=== PATIENT | male | born 1960 | race Caucasian/White ===

== ENCOUNTER 2016-09-03 15:33 | Emergency (ER) | payer OTHER ==
[~2016-09-03 15:33] MED LIST: A-CILLIN500 MG PO; ACETAMINOPHEN-H1 TA2 PO; ADVAIR 250/501 EA INH; ALDACTONE25 MG PO; AMOXICILLIN500 MG PO; ANAPROX DS550 MG PO; ASPIRIN325 MG PO; ASPIRIN81 M1 PO; BUMETANIDE1 MG PO; BUMEX1 MG PO; CEFTIN500 MG PO; CEPHALEXIN500 M1 PO; CHANTIX1 TAB PO; CHANTRIX0.5 MG PO; CHLORDIAZEPOXID10 M1 PO; CHLORDIAZEPOXIDE 10 MG PO; CIPRO500 MG PO; COLACE100 MG PO; COREG3.125 MG PO; COREG6.25 MG PO; COUMADIN PO; CYCLOBENZAPRINE10 MG PO; Clopidogrel75 MG PO; DOXYCYCLINE100 M3 PO; DUONEB 3 MG/3 ML3 M1 INH; DUONEB 3 MG/3 ML3 M1 NEB; FLAGYL500 MG PO; FLUCONAZOLE100 MG PO; FOLIC ACID1 MG PO; FUROSEMIDE10 MG/ML PO; HYDR1%LOT T; HYDROCODONE BIT1 T11 PO; Hydrocortisone30 GM T; K-DUR 2020 MEQ PO; K-Dur 20MEQ20 MEQ PO; KEFLEX500 MG PO; LASIX40 MG PO; LISINOPRIL5 MG PO; Lovenox40 MG/0.4 SC; MACROBID100 M1 PO; METOPROLOL SR25 MG PO; NATURE'S BLEND F1 MG PO; NITROSTAT0.4 MG PO; NITROSTAT0.4 MG SL; NKHM; NYSTATIN CREAM15 GM T; PANTOPRAZOLE40 MG PO; PAROXETINE HCL20 MG PO; PERCOCET 325 MG1 TA2 PO; PERCOCET 325 MG1 TA7 PO; PLAVIX75 MG PO; PRAVACHOL80 MG PO; PREDNISONE10 MG PO; PREDNISONE20 MG PO; PREDNISONE50 MG PO; PRILOSEC20 MG PO; PROTONIX TR40 MG PO; PROTONIX40 MG PO; RESTORIL15 MG PO; SIMVASTATIN40 MG PO; SOTALOL80 MG PO; TAB-A-VITE1 TA1 PO; THERA1 TAB PO; TOPROL XL25 MG PO; VENTOLIN H0.09 MG/AC INH; VIBRAMYCIN100 MG PO; VICODIN 500 MG-1 TAB PO; VITAMIN B-11 TAB PO; ZITHROMAX500 MG PO; Zestril,Prinivil PO; Zestril,Prinivil5 MG PO
[2016-09-03] MEDS ORDERED: CYCLOBENZAPRINE10 MG PO (16:26)
[2016-09-03] MEDS ORDERED: MEDROL DOSEPAK4 MG PO (16:26)
[2016-09-03] MEDS ORDERED: NAPROSYN500 MG PO (16:26)
== END 2016-09-03 16:39 | disposition home or self-care (01) ==
LOC: ED 15:33
DX: S39.012A Strain of muscle, fascia and tendon of lower back, initial encounter (principal); F17.200 Nicotine dependence, unspecified, uncomplicated; Z79.82 Long term (current) use of aspirin; Z79.899 Other long term (current) drug therapy; Z88.1 Allergy status to other antibiotic agents; X50.0XXA Overexertion from strenuous movement or load, initial encounter; Y93.89 Activity, other specified; Y92.9 Unspecified place or not applicable; Y99.9 Unspecified external cause status

== ENCOUNTER 2016-11-27 14:19 | Emergency (ER) | payer OTHER ==
[~2016-11-27] VITALS: Wt 72.6 kg
[~2016-11-27 14:19] MED LIST changes: +MEDROL DOSEPAK4 MG PO; +NAPROSYN500 MG PO
[2016-11-27] MEDS ORDERED: NAPROSYN500 MG PO (15:50)
[2016-11-27] MEDS ORDERED: MEDROL DOSEPAK4 MG PO (15:50)
[2016-11-27] MEDS ORDERED: CYCLOBENZAPRINE10 MG PO (15:50)
== END 2016-11-27 15:54 | disposition home or self-care (01) ==
LOC: ED 14:19
DX: M54.30 Sciatica, unspecified side (principal); M79.652 Pain in left thigh; F17.200 Nicotine dependence, unspecified, uncomplicated; Z88.1 Allergy status to other antibiotic agents; Z79.82 Long term (current) use of aspirin; Z79.899 Other long term (current) drug therapy

== ENCOUNTER 2017-02-04 02:10 | Inpatient (IN) | payer OTHER ==
[~2017-02-04] VITALS: Ht 175.2 cm; Wt 73.1 kg
[2017-02-04] VITALS (8 sets, daily range): BP systolic 93–142; BP diastolic 66–90
[2017-02-04 02:37] LABS: BASO % 0.6 % (0.0-1.0); EOS # 0.3 10*3/uL (0.0-0.4); EOS % 3.8 % (1.0-4.0); HEMATOCRIT 46.1 % (42.0-52.0); HEMOGLOBIN 15.3 g/dl (14.0-18.0); LYMPH # 1.6 10*3/uL (1.3-4.4); LYMPH % 23.8 % (27.0-41.0); MEAN CELL VOLUME 86.8 fl (80.0-94.0); MEAN CORPUSCULAR HGB 28.8 pg (27.0-31.0); MEAN CORPUSCULAR HGB CONC 33.2 g/dl (33.0-37.0); MEAN PLATELET VOLUME 9.5 fl (9.6-12.3); MONO # 0.9 10*3/uL (0.1-1.0); MONO % 13.3 % (3.0-9.0); NEUT % 58.2 % (47.0-73.0); PLATELET COUNT AUTOMATED 147 10*3/uL (130-400); RED BLOOD COUNT 5.31 10*6/uL (4.50-5.90); RED CELL DISTRI WIDTH 16.8 % (0-14.5); WHITE BLOOD COUNT 6.8 10*3/uL (4.8-10.8)
[2017-02-04 02:47] LABS: ACT PARTIAL THROMBO TIME 25.8 SECONDS (20.8-31.5); INTERNATIONAL NORM RATIO 1.1 (2.0-3.5)
[2017-02-04 02:55] LABS: ALBUMIN 2.8 gm/dl (3.1-4.5); ALKALINE PHOSPHATASE 163 U/L (45-117); BUN 11 mg/dl (7-24); CHLORIDE 107 mmol/L (98-107); CREATININE 0.72 mg/dL (0.70-1.30); MAGNESIUM 1.8 mg/dL (1.5-2.1); SGOT/AST 19 IU/L (3-35); SGPT/ALT 14 U/L (12-78); SODIUM 138 mmol/L (136-145); TOTAL PROTEIN 5.7 gm/dL (6.4-8.2); TROPONIN I 0.032 ng/ml (<0.045)
[2017-02-04 03:41] LABS: ABG BASE EXCESS 0.2 mmol/L (-2.0-2.0); ABG HCO3 24.1 mmol/l (22-26); ABG O2 SATURATION 98.9 % (95-97); ARTERIAL BLOOD GAS PCO2 37.9 mmHg (35-45); ARTERIAL BLOOD GAS PH 7.417 (7.35-7.45)
--- NOTE | 2017-02-04 04:36 | NUR ---
PATIENT MEDICATED WITH PRN MORPHINE FOR C/O LEFT FOOT PAIN THAT HE RATES A 9
--- NOTE | 2017-02-04 04:40 | NUR ---
PATIENT ARRIVED TO FLOOR FROM ER, ORIENTED TO FLOOR AND CALL LIGHT REVIEWED MEDICATINS WITH PATIENT
--- NOTE | 2017-02-04 04:50 | NUR ---
PATIENT IS UNSURE OF HOME MEDICATIONS. WILL NEED TO CALL [facility] WHEN THEY OPEN IN THE AM.
--- NOTE | 2017-02-04 05:45 | NUR ---
PATIENT STATES EARLIER MORPHINE WAS INEFFECTIVE. MEDICATED WITH PRN NORCO ORDERED FOR LEFT FOOT PAIN STILL RATED A 9.
[2017-02-04 05:52] LABS: BASO % 0.6 % (0.0-1.0); EOS # 0.1 10*3/uL (0.0-0.4); EOS % 1.4 % (1.0-4.0); HEMATOCRIT 48.4 % (42.0-52.0); LYMPH # 0.8 10*3/uL (1.3-4.4); MEAN CELL VOLUME 87.5 fl (80.0-94.0); MEAN CORPUSCULAR HGB 28.9 pg (27.0-31.0); MEAN CORPUSCULAR HGB CONC 33.1 g/dl (33.0-37.0); MEAN PLATELET VOLUME 10.3 fl (9.6-12.3); MONO # 0.4 10*3/uL (0.1-1.0); MONO % 5.9 % (3.0-9.0); NEUT # 4.9 10*3/uL (2.3-7.9); NEUT % 78.6 % (47.0-73.0); PLATELET COUNT AUTOMATED 114 10*3/uL (130-400); RED BLOOD COUNT 5.53 10*6/uL (4.50-5.90); RED CELL DISTRI WIDTH 17.3 % (0-14.5); WHITE BLOOD COUNT 6.2 10*3/uL (4.8-10.8)
[2017-02-04 05:56] LABS: BUN 11 mg/dl (7-24); CHLORIDE 104 mmol/L (98-107); CHOLESTEROL 146 mg/dL (<200); CREATININE 0.83 mg/dL (0.70-1.30); MAGNESIUM 1.7 mg/dL (1.5-2.1); PHOSPHOROUS 3.8 mg/dL (2.5-4.9); POTASSIUM 4.1 mmol/L (3.5-5.1); SODIUM 139 mmol/L (136-145); TRIGLYCERIDES 66 mg/dl (<150); VLDL CHOLESTEROL 13 mg/dL (6-40)
[2017-02-04 06:00] LABS: HDL CHOLESTEROL 62 mg/dl (40-60); LDL CHOLESTEROL 71 mg/dL (9-159); TROPONIN I 0.027 ng/ml (<0.045)
[2017-02-04 06:18] LABS: ACT PARTIAL THROMBO TIME 25.3 SECONDS (20.8-31.5); INTERNATIONAL NORM RATIO 1.1 (2.0-3.5)
[2017-02-04 08:03] LABS: VITAMIN D, 25-HYDROXY 35.6 ng/mL (30-100)
--- NOTE | 2017-02-04 17:34 | NUR ---
PT MEDICATED AT 173 WITH PRN MORPHINE FOR C/O LEFT FOOT PAIN. 4TH TOE ON LEFT FOOT BRUISED. PT STATES HE STUBBED IT ON A CHAIR AT HOME WHEN HE GOT UP IN THE MIDDLE OF THE NIGHT. RATES PAIN 01/19. WILL CONTINUE TO MONITOR.
--- NOTE | 2017-02-04 18:48 | NUR ---
PRN MORPHINE EFFECTIVE PER PT.
--- NOTE | 2017-02-04 21:39 | NUR ---
MEDICATED WITH PRN MORPHINE ORDERED FOR C/O LEFT FOOT PAIN RATED A 9
--- NOTE | 2017-02-04 22:45 | NUR ---
PATIENT STATES EARLIER MORPHINE WAS INEFFECTIVE IN REDUCING LEFT FOOT PAIN.
[2017-02-05] VITALS: BP 92/58
--- NOTE | 2017-02-05 01:24 | NUR ---
PATIENT MEDICATED WITH PRN MORPHINE ORDERED FOR C/O LEFT FOOT PAIN RATED A 7
--- NOTE | 2017-02-05 02:30 | NUR ---
PATIENT STATES THAT EARLIER MORPHINE WAS "SOMEWHAT EFFECTIVE" IN REDUCING HIS FOOT PAIN.
--- NOTE | 2017-02-05 05:44 | NUR ---
PATIENT MEDICATED WITH PRN MORPHINE ORDERED FOR C/O LEFT FOOT PAIN AT AN 8
--- NOTE | 2017-02-05 06:42 | NUR ---
PATIENT STATES EARLIER MORPHINE DID NOT HELP HIS PAIN. STILL RATES HIS PAIN AT AN 8
[2017-02-05 08:00] VITALS: BP 91/61
--- NOTE | 2017-02-05 09:00 | NUR ---
Pinking Machine Operator in to talk to patient. Patient states lives at home with . There are few steps in the home. Physician: doesn't know [facility] Home health services: none Patient's level of ADLs: INDEPENDENT Patient has working utilities: all working DME: none Follow-up physician's appointment after d/c: will be made by hospitalist nurse director upon discharge Does patient want to access PORTAL?: no Discharge plan discussed with patient, patient lives at home, states he is independent in adls and ambulation, denies any home needs at this time. LAKSHMI ALFONSO
--- NOTE | 2017-02-05 09:44 | NUR ---
MEDICATED WITH PRN IV MORPHINE FOR LEFT FOOT PAIN.
--- NOTE | 2017-02-05 10:40 | NUR ---
PRN IV MORPHINE EFFECTIVE FOR LEFT FOOT PAIN, PER PATIENT.
[2017-02-05 12:00] VITALS: BP 122/82
--- NOTE | 2017-02-05 12:22 | NUR ---
MEDICATED WITH PRN PO PERCOCET FOR LEFT FOOT PAIN.
--- NOTE | 2017-02-05 13:44 | NUR ---
PRN PO PERCOCET WAS EFFECTIVE FOR A SHORT TIME, PER PATIENT; MEDICATED AT THIS TIME WITH PRN IV MORPHINE FOR SEVERE LEFT FOOT PAIN.
--- NOTE | 2017-02-05 14:39 | NUR ---
PATIENT HAVING PERIODS OF MARK CARDIA 40'S -50'S LOW 41, IRREGULAR IN SINUS ARRHYTHMIA WITH BUNDLE BRANCH BLOCK. HE IS DROWSY, AROUSES EASILY BUT FALLS BACK ASLEEP PROMPTLY. HE DENIES ANY CHEST PAIN, STATES HE IS OK. MORPHINE GIVEN EARLIER IS EFFECTIVE FOR PAIN. WILL CONTINUE TO MONITOR.
[2017-02-05] MEDS ORDERED: Percocet 325 MG1 TAB PO (14:41)
[2017-02-05] MEDS ORDERED: LEVOFLOXAC500 MG/100 IV (14:41)
[2017-02-05] MEDS ORDERED: SOLU-MEDRO40 MG/1 ML IV (14:41)
[2017-02-05 16:00] VITALS: BP 123/98
--- NOTE | 2017-02-05 17:46 | NUR ---
MEDICATED WITH PRN IV MORPHINE FOR SEVERE LEFT FOOT PAIN. [facility] HERE TO TRANSPORT THE PATIENT. HELD IV BUMEX PER PATIENT REQUEST FOR AMBULANCE RIDE TO PREVENT DISCOMFORT FROM URINARY FREQUENCY.
--- NOTE | 2017-02-05 18:00 | NUR ---
PATIENT TRANSFERRED TO [facility] AT THIS TIME, REPORT CALLED TO RECEIVING RN.
== END 2017-02-05 17:46 | disposition short-term general hospital (02) | DRG 299 ==
LOC: ED 02:10 → 5E 03:21 → EDHOLD 03:21 → 5E 03:41
PROVIDERS: Emergency Medicine Emergency Medical Services; Family Medicine; ADMIT Internal Medicine
DX: I73.9 Peripheral vascular disease, unspecified (principal); I50.23 Acute on chronic systolic (congestive) heart failure; E44.0 Moderate protein-calorie malnutrition; J44.1 Chronic obstructive pulmonary disease with (acute) exacerbation; M79.672 Pain in left foot; R73.03 Prediabetes; R00.1 Bradycardia, unspecified; K21.9 Gastro-esophageal reflux disease without esophagitis; I11.0 Hypertensive heart disease with heart failure; Z71.6 Tobacco abuse counseling; F17.210 Nicotine dependence, cigarettes, uncomplicated; Z80.1 Family history of malignant neoplasm of trachea, bronchus and lung; Z83.3 Family history of diabetes mellitus; Z88.8 Allergy status to other drugs, medicaments and biological substances; Z79.82 Long term (current) use of aspirin; Z79.899 Other long term (current) drug therapy; Z68.23 Body mass index [BMI] 23.0-23.9, adult

== ENCOUNTER 2017-03-01 16:27 | Emergency (ER) | payer OTHER ==
[~2017-03-01] VITALS: Ht 175.2 cm; Wt 72.6 kg
[~2017-03-01 16:27] MED LIST changes: +LEVOFLOXAC500 MG/100 IV; +Percocet 325 MG1 TAB PO; +SOLU-MEDRO40 MG/1 ML IV
[2017-03-01 17:22] LABS: BASO % 0.5 % (0.0-1.0); EOS # 0.3 10*3/uL (0.0-0.4); EOS % 4.2 % (1.0-4.0); HEMATOCRIT 50.6 % (42.0-52.0); HEMOGLOBIN 16.5 g/dl (14.0-18.0); LYMPH # 1.4 10*3/uL (1.3-4.4); LYMPH % 23.8 % (27.0-41.0); MEAN CELL VOLUME 88.6 fl (80.0-94.0); MEAN CORPUSCULAR HGB 28.9 pg (27.0-31.0); MEAN CORPUSCULAR HGB CONC 32.6 g/dl (33.0-37.0); MEAN PLATELET VOLUME 10.5 fl (9.6-12.3); MONO # 0.7 10*3/uL (0.1-1.0); MONO % 10.8 % (3.0-9.0); NEUT # 3.6 10*3/uL (2.3-7.9); NEUT % 60.4 % (47.0-73.0); PLATELET COUNT AUTOMATED 142 10*3/uL (130-400); RED BLOOD COUNT 5.71 10*6/uL (4.50-5.90); RED CELL DISTRI WIDTH 17.6 % (0-14.5)
[2017-03-01 17:31] LABS: ACT PARTIAL THROMBO TIME 26.5 SECONDS (20.8-31.5); INTERNATIONAL NORM RATIO 1.1 (2.0-3.5)
[2017-03-01 17:37] LABS: ALBUMIN 3.7 gm/dl (3.1-4.5); ALKALINE PHOSPHATASE 238 U/L (45-117); BUN 11 mg/dl (7-24); CHLORIDE 105 mmol/L (98-107); CREATININE 0.77 mg/dL (0.70-1.30); MAGNESIUM 1.8 mg/dL (1.5-2.1); POTASSIUM 4.8 mmol/L (3.5-5.1); SGOT/AST 17 IU/L (3-35); SGPT/ALT 23 U/L (12-78); SODIUM 139 mmol/L (136-145); TOTAL PROTEIN 7.4 gm/dL (6.4-8.2)
== END 2017-03-01 20:49 | disposition short-term general hospital (02) ==
LOC: ED 16:27
PROVIDERS: Emergency Medicine
DX: E11.621 Type 2 diabetes mellitus with foot ulcer (principal); I10 Essential (primary) hypertension; K21.9 Gastro-esophageal reflux disease without esophagitis; E11.51 Type 2 diabetes mellitus with diabetic peripheral angiopathy without gangrene; F17.210 Nicotine dependence, cigarettes, uncomplicated; L97.529 Non-pressure chronic ulcer of other part of left foot with unspecified severity; I99.8 Other disorder of circulatory system; I50.9 Heart failure, unspecified; J44.9 Chronic obstructive pulmonary disease, unspecified

== ENCOUNTER 2017-05-09 13:44 | Emergency (ER) | payer OTHER ==
[~2017-05-09] VITALS: Ht 175.2 cm; Wt 73.0 kg
[2017-05-09 14:31] LABS: BASO % 0.4 % (0.0-1.0); EOS # 0.1 10*3/uL (0.0-0.4); EOS % 1.1 % (1.0-4.0); HEMATOCRIT 48.6 % (42.0-52.0); HEMOGLOBIN 16.3 g/dl (14.0-18.0); LYMPH # 1.2 10*3/uL (1.3-4.4); LYMPH % 22.3 % (27.0-41.0); MEAN CELL VOLUME 88.8 fl (80.0-94.0); MEAN CORPUSCULAR HGB 29.8 pg (27.0-31.0); MEAN CORPUSCULAR HGB CONC 33.5 g/dl (33.0-37.0); MEAN PLATELET VOLUME 9.9 fl (9.6-12.3); MONO # 0.6 10*3/uL (0.1-1.0); MONO % 11.7 % (3.0-9.0); NEUT # 3.5 10*3/uL (2.3-7.9); NEUT % 64.1 % (47.0-73.0); PLATELET COUNT AUTOMATED 156 10*3/uL (130-400); RED BLOOD COUNT 5.47 10*6/uL (4.50-5.90); RED CELL DISTRI WIDTH 15.6 % (0-14.5); WHITE BLOOD COUNT 5.5 10*3/uL (4.8-10.8)
[2017-05-09 14:48] LABS: ALBUMIN 2.9 gm/dl (3.1-4.5); ALKALINE PHOSPHATASE 247 U/L (45-117); BUN 12 mg/dl (7-24); CHLORIDE 103 mmol/L (98-107); CREATININE 0.77 mg/dL (0.70-1.30); POTASSIUM 4.5 mmol/L (3.5-5.1); SGOT/AST 41 IU/L (3-35); SGPT/ALT 29 U/L (12-78); SODIUM 134 mmol/L (136-145); TOTAL PROTEIN 6.4 gm/dL (6.4-8.2)
[2017-05-09 14:50] LABS: TROPONIN I 0.022 ng/ml (<0.045)
[2017-05-09 14:53] LABS: INTERNATIONAL NORM RATIO 1.1 (2.0-3.5)
[2017-05-09 15:05] LABS: ACT PARTIAL THROMBO TIME 101.7 SECONDS (20.8-31.5)
== END 2017-05-09 14:51 | disposition short-term general hospital (02) ==
LOC: ED 13:44
PROVIDERS: Nurse Practitioner Family
DX: I21.19 ST elevation (STEMI) myocardial infarction involving other coronary artery of inferior wall (principal); F17.210 Nicotine dependence, cigarettes, uncomplicated; Z88.8 Allergy status to other drugs, medicaments and biological substances; Z79.899 Other long term (current) drug therapy; Z79.82 Long term (current) use of aspirin

== ENCOUNTER 2017-06-15 06:54 | Emergency (ER) | payer OTHER ==
[~2017-06-15] VITALS: Ht 175.2 cm; Wt 68.0 kg
[2017-06-15 07:33] LABS: BASO % 0.3 % (0.0-1.0); EOS # 0.1 10*3/uL (0.0-0.4); EOS % 0.9 % (1.0-4.0); HEMATOCRIT 46.2 % (42.0-52.0); HEMOGLOBIN 15.8 g/dl (14.0-18.0); LYMPH # 1.3 10*3/uL (1.3-4.4); LYMPH % 20.3 % (27.0-41.0); MEAN CELL VOLUME 87.2 fl (80.0-94.0); MEAN CORPUSCULAR HGB 29.8 pg (27.0-31.0); MEAN CORPUSCULAR HGB CONC 34.2 g/dl (33.0-37.0); MEAN PLATELET VOLUME 9.8 fl (9.6-12.3); MONO # 0.7 10*3/uL (0.1-1.0); MONO % 10.4 % (3.0-9.0); NEUT # 4.3 10*3/uL (2.3-7.9); NEUT % 67.8 % (47.0-73.0); PLATELET COUNT AUTOMATED 112 10*3/uL (130-400); WHITE BLOOD COUNT 6.3 10*3/uL (4.8-10.8)
[2017-06-15 07:50] LABS: ALBUMIN 2.8 gm/dl (3.1-4.5); ALKALINE PHOSPHATASE 166 U/L (45-117); BUN 8 mg/dl (7-24); CHLORIDE 103 mmol/L (98-107); CPK 63 U/L (39-308); CREATININE 0.71 mg/dL (0.70-1.30); POTASSIUM 3.7 mmol/L (3.5-5.1); SGOT/AST 27 IU/L (3-35); SGPT/ALT 21 U/L (12-78); SODIUM 137 mmol/L (136-145); TOTAL PROTEIN 5.8 gm/dL (6.4-8.2)
[2017-06-15 07:53] LABS: TROPONIN I 0.203 ng/ml (<0.045)
[2017-06-15 07:54] LABS: ACT PARTIAL THROMBO TIME 25.6 SECONDS (20.8-31.5)
== END 2017-06-15 09:15 | disposition short-term general hospital (02) ==
LOC: ED 06:54
PROVIDERS: Student in an Organized Health Care Education/Training Program
DX: I70.8 Atherosclerosis of other arteries (principal); I11.0 Hypertensive heart disease with heart failure; I50.9 Heart failure, unspecified; K21.9 Gastro-esophageal reflux disease without esophagitis; I25.2 Old myocardial infarction; Z79.82 Long term (current) use of aspirin; Z79.899 Other long term (current) drug therapy

== ENCOUNTER → 2017-07-31 | Outpatient (CLI) | payer OTHER | END | disposition home or self-care (01) | LOC: CARD 12:53 | DX: I08.1 Rheumatic disorders of both mitral and tricuspid valves (principal) ==

== ENCOUNTER 2017-08-16 16:07 | Inpatient (IN) | payer OTHER ==
[~2017-08-16] VITALS: Ht 175.2 cm; Wt 71.2 kg
--- NOTE | ~2017-08-16 | CON ---
[place], [place] REPORT OF CONSULTATION NAME: RYAN JOHN [facility] #: [id number] UNIT #: [id number] ROOM: 425 DOCTOR: CY YARBROUGH MD BIRTHDATE: [birth year] DOS: 08/17/2017 REASON FOR CONSULTATION: CHF and chest pain. CLINICAL HISTORY: The patient is a 57-year-old gentleman with history of cardiomyopathy, CAD, valvular heart disease, hypertension, tobacco smoking, who presents to Emergency Room for "chest pain". This pain started while he was sweeping the floor. This was in midsternal area, which has radiated to his shoulder. He did have some shortness of breath with the pain, but no associated nausea or diaphoresis. In the Emergency Room, he was treated appropriately with aspirin and metoprolol. His EKG was unchanged compared to previous EKG. He was admitted to the hospital and Cardiology was consulted for further recommendation. In the Emergency Room the supplement helped only partially for his pain. Other than this episode, he denies any further chest pains. He is fairly active. He had history of coronary artery disease and previous interventions. He did continue to smoke. He is also complaining of some mild exertional dyspnea, but no PND, no orthopnea. No nausea, vomiting, diarrhea, no fever and chills. No neurologic symptoms suggestive of tingling, numbness or weakness. No blurred vision. No cough or hemoptysis. No hematuria or dysuria. No musculoskeletal symptoms. At the time of examination, the patient is sleeping and denied any chest pains or shortness of breath. REVIEW OF SYSTEMS: Review of the 8 systems are negative except as mentioned above. PAST MEDICAL HISTORY: 1. Coronary artery disease, status post EXPERIMENTAL PHYSICIST. 2. History of cardiomyopathy. 3. Valvular heart disease with mitral and tricuspid regurgitation. 4. Hypertension. 5. History of right nephrectomy. 6. Acid reflux. 7. Pulmonary nodule. 8. Peripheral vascular disease. 9. Chronic obstructive pulmonary disease. PAST SURGICAL HISTORY: History of right nephrectomy and cardiac stents. SOCIAL HISTORY: The patient drinks alcohol socially and still smoking, but does not use illicit drugs. FAMILY HISTORY: Father at the age of 49 from lung cancer. Mother has diabetes. ALLERGIES: Noted. HOME MEDICATIONS: Include aspirin, Coreg, Lasix, lisinopril, and Pravachol. REVIEW OF THE DIAGNOSTIC TESTS: His EKG shows normal sinus with left bundle bunch block, nonspecific ST changes. The patient is with some ST elevation, [place], [place] REPORT OF CONSULTATION NAME: RYAN JOHN UNIT #: [id number] ROOM: 425 DOCTOR: ZENON GOMEZ,CHEMAYoseph BIRTHDATE: [birth year] thus far it is secondary to his underlying left bundle branch block. His EKG from June 2017 reviewed. Rhythm strip showed sinus rhythm, left bundle branch block and sinus bradycardia. His labs including cardiac enzymes reviewed. The cardiac troponins are negative. Potassium 3.7, mag is 1.8, BUN 17 and creatinine 1.13, hemoglobin 7.8, platelets 105,000. Echo from 07/31/2017 showed EF 20% with moderate mitral regurgitation, moderate tricuspid regurgitation. Echo from September 2013 showed EF of 25% to 30%. IMPRESSION: 1. Chest pain, appears to be atypical chest pain, myocardial infarction ruled out. 2. Acute on chronic systolic heart failure with BNP 2296. 3. Chronic obstructive pulmonary disease exacerbation and some respiratory failure. 4. Sinus bradycardia, asymptomatic. 5. Coronary artery disease, status post multiple interventions. 6. Valvular heart disease with moderate mitral regurgitation and moderate tricuspid regurgitation. 7. Tobacco smoking. 8. Hypertension. RECOMMENDATIONS: 1. Continue diuretics for his CHF, monitor his blood pressures and renal function as well as daily in's and out's. 2. Adjust some medication for his bradycardia and hypertension. 3. I will review his previous cardiac history and his cath report before making any further recommendations. 4. Risk factor modification to quit drinking and smoking was discussed. 5. Currently, there is no family at bedside at the time of my examination. 6. Continue to monitor his electrolytes, especially his potassium and magnesium levels due to his LV dysfunction. ADDENDUM PHYSICAL EXAMINATION: VITAL SIGNS: Blood pressure 95/69, pulse 58, respiratory rate 20, weight 66.8 kilos with a BMI 21.8. GENERAL: Alert, comfortable, in no acute distress. HEENT: Pupils are round and equal, no jaundice. Tongue was moist and pharynx clear. NECK: Supple. The patient had elevated neck veins. No carotid bruit. CHEST: Symmetrical, nontender. LUNGS: A few scattered rhonchi, diminished at bases. HEART: Regular rhythm, no S3, grade 2/6 systolic murmur at the right sternal border as well as apical area. No S3, no palpable thrills. ABDOMEN: Benign, nontender. Bowel sounds normal. EXTREMITIES: Showed 1+ edema. Distal pulses palpable. SKIN: Warm and dry. No cyanosis, no clubbing. NEUROLOGIC: The patient is alert and oriented. No focal neurologic deficit. RECTAL: Deferred. [place], [place] REPORT OF CONSULTATION NAME: RYAN JOHN UNIT #: [id number] ROOM: [facility] DOCTOR: CY YARBROUGH MD BIRTHDATE: [birth year] GENITOURINARY: Deferred. PSYCHIATRIC: The patient alert with good mood and affect. CY YARBROUGH MD CM:CONSTR:REPORT OF CONSULTATION 1821 08/18/17 0356 interface
--- NOTE | ~2017-08-16 | PR ---
[place], [place] PROGRESS NOTE NAME: RYAN JOHN [facility] #: [id number] UNIT #: [id number] ROOM: 425 DOCTOR: OMA FRIED MD BIRTHDATE: [birth year] DOS: 08/18/2017 SUBJECTIVE: The patient was seen at his bedside today, 08/18/2017 for followup of his cardiomyopathy, heart failure and atypical chest pain. He is a 57-year-old man with a history of alcohol abuse who was felt to have a mostly nonischemic cardiomyopathy despite a history of coronary artery disease. It is felt that his left ventricular dysfunction is out of proportion to the amount of coronary disease that he has. His most recent catheterization was at the [facility] on 05/09/2017. The left main and LAD showed only minor disease. The circumflex showed minor disease with moderate disease of a first diagonal. The right coronary artery was occluded with bridging collaterals as well as left to right collaterals. There were no good targets for revascularization. The ejection fraction was 10% and again out of proportion to the amount of coronary artery disease seen. The physicians at the [facility] recommended continued medical therapy. They did express concern that the patient had a long history of alcohol abuse as well as poor medical compliance and therefore, they did not encourage an aggressive approach to his left ventricular dysfunction. Specifically, they did not recommend a LifeVest or ICD. The patient presented to [facility] on this occasion with atypical chest pain and dyspnea. Serial cardiac troponin levels have been unremarkable. A chest x-ray did not show any evidence for heart failure. PHYSICAL EXAMINATION: VITAL SIGNS: Today, his pulse is 68 and regular with frequent premature beats. Blood pressure is 115/80. He is afebrile. NECK: Supple. He has no jugular distention or hepatojugular reflux. Carotids are full without bruits. LUNGS: Respirations are unlabored. His chest has decreased breath sounds at the bases, but no wheezes or rales. HEART: Has a regular rhythm with frequent premature beats. He has a fourth heart sound and a soft third heart sound. I did not hear any significant murmurs. ABDOMEN: Soft. EXTREMITIES: Showed no edema. Peripheral pulses were absent in the feet. LABORATORY DATA: Hemoglobin today is 14.5 with a white count of 4600 and a platelet count of 134,000. Sodium is 138, potassium 4.0, chloride 104, CO2 27, BUN 19, creatinine 0.82. Recent drug screen was only positive for marijuana. IMPRESSION: 1. Coronary artery disease. Catheterization in late 04/2017 showed essentially single vessel disease with a total chronic occlusion of the right coronary artery which was filled by collaterals. 2. Cardiomyopathy, which appears to be dilated and nonischemic. The left ventricular dysfunction is far out of proportion to the amount of coronary artery disease present. 3. History of alcohol abuse. 4. History of medication noncompliance. [place], [place] PROGRESS NOTE NAME: RYAN JOHN UNIT #: [id number] ROOM: 425 DOCTOR: FARIHA GOMEZ,OMA BIRTHDATE: [birth year] PLAN: We will add a nitrate to his regimen and continue a single antiplatelet therapy with aspirin. He will also continue lisinopril and a beta aba. We will add spironolactone to his regimen for heart failure and continue to follow him clinically. At this point, no advanced or aggressive measures are being considered for his heart failure or coronary artery disease. I thank the hospitalist group for asking our advice regarding the patient's care. OMA FRIED MD CM:PNTRANS [id number] OMA FRIED MD 08/18/17 1344 interface
--- NOTE | ~2017-08-16 | PR ---
[place], [place] PROGRESS NOTE NAME: RYAN JOHN [facility] #: [id number] UNIT #: [id number] ROOM: 425 DOCTOR: OMA FRIED MD BIRTHDATE: [birth year] DOS: 08/19/2017 SUBJECTIVE: The patient was seen today at his bedside on 08/19/2017 for followup of his dilated, nonischemic cardiomyopathy, heart failure, and coronary artery disease. He is a 57-year-old man with a history of alcohol abuse and coronary artery disease, but a mostly nonischemic cardiomyopathy. His most recent catheterization at the [facility] on 05/09/2017 showed the left main and LAD had only minor disease. The circumflex had minor disease with moderate disease of a first obtuse marginal. The right coronary artery was occluded with bridging collaterals as well as bhot-hs-vilof collaterals. There were no good targets for revascularization. The ejection fraction was 10% and was felt to be out of proportion to the amount of coronary artery disease present. It was felt that he should be treated medically. The physicians at the [facility] expressed a concern that the patient had a long history of alcohol abuse and poor compliance. Therefore, they did not encourage an aggressive approach to his left ventricular dysfunction. The patient presented to [facility] on this occasion with atypical chest pain and dyspnea. He did not rule in for myocardial infarction, and a chest x-ray did not show any evidence for heart failure. Today, he does feel considerably better. He states that his breathing has improved. He is not coughing. He is anxious for discharge. PHYSICAL EXAMINATION: GENERAL: Today reveals an elderly appearing white male. VITAL SIGNS: Pulse is 55 with an occasional premature beat. Blood pressure is 108/76. He is afebrile. He weighs 71.2 kg and has a body mass index of 23.2. HEENT: Normocephalic and atraumatic. Extraocular muscles are intact. Sclerae are clear. Pupils equal, round, and react to light. The oral mucosa is moist. Tongue is midline. NECK: Supple. He has no jugular distention. Carotids are full. LUNGS: Respirations are unlabored. His chest has decreased breath sounds at the bases, but otherwise clear. HEART: Has a regular rhythm. Heart tones are distant. ABDOMEN: Soft and normally active. EXTREMITIES: Showed no edema. IMPRESSION: 1. Coronary artery disease. Catheterization in late 04/2017 showed essentially single-vessel disease with total occlusion of the right coronary artery, which filled by collaterals. 2. Cardiomyopathy, which appears to be dilated and nonischemic. Left ventricular dysfunction is far out of proportion to the amount of coronary artery disease present. 3. History of alcohol abuse. 4. History of medication noncompliance. PLAN: The patient has tolerated the addition of nitrates and spironolactone to [place], [place] PROGRESS NOTE NAME: RYAN JOHN UNIT #: [id number] ROOM: 425 DOCTOR: OMA FRIED MD BIRTHDATE: [birth year] his regimen. He will continue on those along with aspirin, lisinopril, and a beta aba. I think he could be discharged from a cardiac perspective. We will see him in the office in several weeks. I thank the hospitalist physicians for asking our advice regarding his care. OMA FRIED MD CM:PNTRANS 1333 [id number] OMA FRIED MD 08/19/17 1357 interface
[2017-08-16 16:16] VITALS: BP 127/94
[2017-08-16 16:30] LABS: BASO # 0.1 10*3/uL (0.0-0.1); BASO % 0.7 % (0.0-1.0); EOS # 0.1 10*3/uL (0.0-0.4); HEMATOCRIT 54.1 % (42.0-52.0); HEMOGLOBIN 17.8 g/dl (14.0-18.0); LYMPH # 1.7 10*3/uL (1.3-4.4); LYMPH % 24.7 % (27.0-41.0); MEAN CORPUSCULAR HGB 29.3 pg (27.0-31.0); MEAN CORPUSCULAR HGB CONC 32.9 g/dl (33.0-37.0); MEAN PLATELET VOLUME 11.4 fl (9.6-12.3); MONO # 1.2 10*3/uL (0.1-1.0); MONO % 16.9 % (3.0-9.0); NEUT # 3.9 10*3/uL (2.3-7.9); NEUT % 56.4 % (47.0-73.0); PLATELET COUNT AUTOMATED 105 10*3/uL (130-400); RED BLOOD COUNT 6.08 10*6/uL (4.50-5.90); RED CELL DISTRI WIDTH 17.3 % (0-14.5); WHITE BLOOD COUNT 6.9 10*3/uL (4.8-10.8)
[2017-08-16 16:45] VITALS: BP 116/92
[2017-08-16 16:47] LABS: ALBUMIN 3.3 gm/dl (3.1-4.5); ALKALINE PHOSPHATASE 212 U/L (45-117); BUN 17 mg/dl (7-24); CHLORIDE 99 mmol/L (98-107); CREATININE 1.13 mg/dL (0.70-1.30); POTASSIUM 3.7 mmol/L (3.5-5.1); SGOT/AST 24 IU/L (3-35); SGPT/ALT 26 U/L (12-78); SODIUM 134 mmol/L (136-145); TOTAL PROTEIN 6.6 gm/dL (6.4-8.2); TROPONIN I 0.016 ng/ml (<0.045)
[2017-08-16 16:51] LABS: BILIRUBIN NEGATIVE (NEGATIVE); BLOOD NEGATIVE (NEGATIVE); CLARITY SL CLOUDY (CLEAR); COLOR YELLOW (YELLOW); GLUCOSE NEGATIVE (NEGATIVE); KETONE NEGATIVE (NEGATIVE); LEUKO ESTERASE NEGATIVE (NEGATIVE); NITRITE NEGATIVE (NEGATIVE); SPECIFIC GRAVITY 1.015 (1.005-1.030); UROBILINOGEN 0.2 E.U./dl (0.2-1.0)
[2017-08-16 16:58] LABS: HYALINE CAST 31-40
[2017-08-16 17:00] LABS: BACTERIA 2+; URINE AMPHETAMINES < 1000 (1000ng/ml); URINE BARBITURATES < 200 (200ng/ml); URINE BENZODIAZEPINES < 200 (200ng/ml); URINE CANNABINOIDS (THC) > 50 (50ng/ml); URINE COCAINE < 300 (300ng/ml); URINE METHADONE < 300 (300ng/ml); URINE OPIATES < 300 (300ng/ml)
[2017-08-16 17:01] LABS: EPITHELIAL CELLS 0-2
[2017-08-16 17:02] LABS: URINE PHENCYCLIDINE < 25 (25ng/ml)
[2017-08-16 17:11] LABS: ACT PARTIAL THROMBO TIME 25.7 SECONDS (20.8-31.5); INTERNATIONAL NORM RATIO 1.1 (2.0-3.5)
[2017-08-16 17:22] VITALS: BP 112/88
[2017-08-16 18:00] VITALS: BP 111/86
[2017-08-16 20:00] VITALS: BP 85/63
[2017-08-17] VITALS: BP 95/69
[2017-08-17 06:01] LABS: BASO % 0.9 % (0.0-1.0); EOS # 0.2 10*3/uL (0.0-0.4); EOS % 3.7 % (1.0-4.0); LYMPH # 1.4 10*3/uL (1.3-4.4); LYMPH % 29.6 % (27.0-41.0); MEAN CELL VOLUME 88.2 fl (80.0-94.0); MEAN CORPUSCULAR HGB 28.9 pg (27.0-31.0); MEAN CORPUSCULAR HGB CONC 32.7 g/dl (33.0-37.0); MEAN PLATELET VOLUME 9.7 fl (9.6-12.3); MONO # 0.9 10*3/uL (0.1-1.0); MONO % 19.8 % (3.0-9.0); NEUT # 2.1 10*3/uL (2.3-7.9); NEUT % 45.8 % (47.0-73.0); PLATELET COUNT AUTOMATED 134 10*3/uL (130-400); RED BLOOD COUNT 5.02 10*6/uL (4.50-5.90); WHITE BLOOD COUNT 4.6 10*3/uL (4.8-10.8)
[2017-08-17 06:13] LABS: BUN 19 mg/dl (7-24); CHLORIDE 104 mmol/L (98-107); CHOLESTEROL 137 mg/dL (<200); CREATININE 0.82 mg/dL (0.70-1.30); HDL CHOLESTEROL 63 mg/dl (40-60); LDL CHOLESTEROL 59 mg/dL (9-159); SODIUM 138 mmol/L (136-145); TRIGLYCERIDES 77 mg/dl (<150); VLDL CHOLESTEROL 15 mg/dL (6-40)
[2017-08-17 06:16] LABS: HEMOGLOBIN 14.5 g/dl (14.0-18.0)
[2017-08-17 06:17] LABS: HEMATOCRIT 44.3 % (42.0-52.0)
[2017-08-17 07:13] LABS: VITAMIN D, 25-HYDROXY 15.6 ng/mL (30-100)
[2017-08-17 08:00] VITALS: BP 104/68
[2017-08-17 12:00] VITALS: BP 126/79
[2017-08-17 16:00] VITALS: BP 95/74
[2017-08-17 20:00] VITALS: BP 101/75
[2017-08-18] VITALS: BP 105/75
[2017-08-18 08:00] VITALS: BP 115/80
[2017-08-18 12:00] VITALS: BP 119/90
[2017-08-18 16:00] VITALS: BP 106/68
[2017-08-18 20:00] VITALS: BP 95/64
[2017-08-19] VITALS: BP 100/70
[2017-08-19 06:58] LABS: BUN 20 mg/dl (7-24); CHLORIDE 105 mmol/L (98-107); CREATININE 0.61 mg/dL (0.70-1.30); SODIUM 138 mmol/L (136-145)
[2017-08-19 08:00] VITALS: BP 108/76
[2017-08-19 12:00] VITALS: BP 104/64
[2017-08-19] MEDS ORDERED: ALDACTONE25 MG PO (14:34)
[2017-08-19] MEDS ORDERED: CALCIUM 600 +1 EAC5 PO (14:34)
[2017-08-19] MEDS ORDERED: IMDUR SA30 MG PO (14:34)
== END 2017-08-19 15:15 | disposition home or self-care (01) | DRG 189 ==
LOC: ED 16:07 → EDHOLD 17:01 → 4E 17:01
PROVIDERS: Internal Medicine Cardiovascular Disease; Nurse Practitioner Family; Student in an Organized Health Care Education/Training Program
DX: J96.01 Acute respiratory failure with hypoxia (principal); J18.9 Pneumonia, unspecified organism; D69.6 Thrombocytopenia, unspecified; I11.0 Hypertensive heart disease with heart failure; E44.1 Mild protein-calorie malnutrition; E11.65 Type 2 diabetes mellitus with hyperglycemia; I50.22 Chronic systolic (congestive) heart failure; I42.9 Cardiomyopathy, unspecified; E87.1 Hypo-osmolality and hyponatremia; R65.10 Systemic inflammatory response syndrome (SIRS) of non-infectious origin without acute organ dysfunction; K21.9 Gastro-esophageal reflux disease without esophagitis; M94.0 Chondrocostal junction syndrome [Tietze]; I25.10 Atherosclerotic heart disease of native coronary artery without angina pectoris; R00.0 Tachycardia, unspecified; R82.71 Bacteriuria; D72.810 Lymphocytopenia; J44.9 Chronic obstructive pulmonary disease, unspecified; R42 Dizziness and giddiness; R80.9 Proteinuria, unspecified; R91.1 Solitary pulmonary nodule; F17.210 Nicotine dependence, cigarettes, uncomplicated; F17.200 Nicotine dependence, unspecified, uncomplicated; F41.9 Anxiety disorder, unspecified; Z91.14 Patient's other noncompliance with medication regimen; Z82.3 Family history of stroke; Z98.61 Coronary angioplasty status; Z71.6 Tobacco abuse counseling; Z72.89 Other problems related to lifestyle; Z80.1 Family history of malignant neoplasm of trachea, bronchus and lung; Z83.3 Family history of diabetes mellitus; Z79.82 Long term (current) use of aspirin; Z68.21 Body mass index [BMI] 21.0-21.9, adult

== ENCOUNTER 2017-09-26 00:50 | Emergency (ER) | payer OTHER ==
[~2017-09-26] VITALS: Ht 175.2 cm; Wt 74.4 kg
[~2017-09-26 00:50] MED LIST changes: +CALCIUM 600 +1 EAC5 PO; +IMDUR SA30 MG PO
[2017-09-26 01:21] LABS: BASO # 0.1 10*3/uL (0.0-0.1); BASO % 0.8 % (0.0-1.0); EOS # 0.1 10*3/uL (0.0-0.4); EOS % 1.5 % (1.0-4.0); HEMATOCRIT 48.9 % (42.0-52.0); HEMOGLOBIN 16.2 g/dl (14.0-18.0); MEAN CELL VOLUME 87.3 fl (80.0-94.0); MEAN CORPUSCULAR HGB 28.9 pg (27.0-31.0); MEAN CORPUSCULAR HGB CONC 33.1 g/dl (33.0-37.0); MONO # 0.9 10*3/uL (0.1-1.0); MONO % 14.8 % (3.0-9.0); NEUT % 65.6 % (47.0-73.0); PLATELET COUNT AUTOMATED 179 10*3/uL (130-400); RED CELL DISTRI WIDTH 15.5 % (0-14.5); WHITE BLOOD COUNT 6.1 10*3/uL (4.8-10.8)
[2017-09-26 01:33] LABS: ACT PARTIAL THROMBO TIME 24.3 SECONDS (20.8-31.5)
[2017-09-26 01:39] LABS: ALBUMIN 2.8 gm/dl (3.1-4.5); ALKALINE PHOSPHATASE 188 U/L (45-117); BUN 14 mg/dl (7-24); CHLORIDE 106 mmol/L (98-107); POTASSIUM 3.7 mmol/L (3.5-5.1); SGOT/AST 19 IU/L (3-35); SGPT/ALT 19 U/L (12-78); SODIUM 139 mmol/L (136-145); TOTAL PROTEIN 5.8 gm/dL (6.4-8.2)
[2017-09-26 03:21] LABS: CKMB 1.5 ng/ml (0.5-3.6); CPK 71 U/L (39-308); TROPONIN I < 0.015 ng/ml (<0.045)
== END 2017-09-26 06:46 | disposition short-term general hospital (02) ==
LOC: ED 00:50
PROVIDERS: Emergency Medicine
DX: I77.89 Other specified disorders of arteries and arterioles (principal); I26.99 Other pulmonary embolism without acute cor pulmonale; F17.200 Nicotine dependence, unspecified, uncomplicated; I25.10 Atherosclerotic heart disease of native coronary artery without angina pectoris; I11.0 Hypertensive heart disease with heart failure; I50.9 Heart failure, unspecified; I25.2 Old myocardial infarction; J44.9 Chronic obstructive pulmonary disease, unspecified; K21.9 Gastro-esophageal reflux disease without esophagitis; E11.9 Type 2 diabetes mellitus without complications; Z95.5 Presence of coronary angioplasty implant and graft; Z79.82 Long term (current) use of aspirin; Z79.899 Other long term (current) drug therapy; Z88.8 Allergy status to other drugs, medicaments and biological substances

== ENCOUNTER 2017-11-03 22:18 | Emergency (ER) | payer OTHER ==
[~2017-11-03] VITALS: Ht 175.2 cm; Wt 74.4 kg
[2017-11-03 23:06] LABS: ACT PARTIAL THROMBO TIME 23.1 SECONDS (20.8-31.5); BASO # 0.1 10*3/uL (0.0-0.1); BASO % 0.7 % (0.0-1.0); EOS # 0.1 10*3/uL (0.0-0.4); EOS % 1.5 % (1.0-4.0); HEMATOCRIT 51.1 % (42.0-52.0); HEMOGLOBIN 17.3 g/dl (14.0-18.0); INTERNATIONAL NORM RATIO 1.1 (2.0-3.5); LYMPH # 1.3 10*3/uL (1.3-4.4); LYMPH % 18.6 % (27.0-41.0); MEAN CELL VOLUME 87.4 fl (80.0-94.0); MEAN CORPUSCULAR HGB 29.6 pg (27.0-31.0); MEAN CORPUSCULAR HGB CONC 33.9 g/dl (33.0-37.0); MEAN PLATELET VOLUME 11.3 fl (9.6-12.3); MONO # 1.1 10*3/uL (0.1-1.0); MONO % 15.6 % (3.0-9.0); NEUT # 4.5 10*3/uL (2.3-7.9); NEUT % 62.8 % (47.0-73.0); PLATELET COUNT AUTOMATED 191 10*3/uL (130-400); RED BLOOD COUNT 5.85 10*6/uL (4.50-5.90); WHITE BLOOD COUNT 7.2 10*3/uL (4.8-10.8)
[2017-11-03] MEDS ORDERED: ELIQUIS5 M1 PO (23:07)
[2017-11-04 00:36] LABS: TROPONIN I < 0.015 ng/ml (<0.045)
== END 2017-11-04 00:01 | disposition short-term general hospital (02) ==
LOC: ED 22:18
PROVIDERS: Student in an Organized Health Care Education/Training Program
DX: I70.8 Atherosclerosis of other arteries (principal); F17.200 Nicotine dependence, unspecified, uncomplicated; I25.10 Atherosclerotic heart disease of native coronary artery without angina pectoris; J44.9 Chronic obstructive pulmonary disease, unspecified; K21.9 Gastro-esophageal reflux disease without esophagitis; I10 Essential (primary) hypertension; E11.65 Type 2 diabetes mellitus with hyperglycemia; Z95.5 Presence of coronary angioplasty implant and graft; Z88.8 Allergy status to other drugs, medicaments and biological substances; Z79.82 Long term (current) use of aspirin; Z79.899 Other long term (current) drug therapy; Z86.711 Personal history of pulmonary embolism

== ENCOUNTER → 2017-12-12 | Outpatient (CLI) | payer OTHER ==
[~2017-12-12] MED LIST changes: +ELIQUIS5 M1 PO
[2017-12-14 19:07] LABS: ANTICARDIOLIPIN AB, IGG, QN <9 GPL U/mL (0-14); ANTICARDIOLIPIN AB, IGM, QN <9 MPL U/mL (0-12); CARDIOLIPIN AB IGA 161836 <9 APL U/mL (0-11)
== END | disposition home or self-care (01) ==
LOC: RESCLI 02:27
PROVIDERS: Internal Medicine
DX: I25.10 Atherosclerotic heart disease of native coronary artery without angina pectoris (principal); I11.0 Hypertensive heart disease with heart failure; I50.22 Chronic systolic (congestive) heart failure; K21.9 Gastro-esophageal reflux disease without esophagitis; J44.9 Chronic obstructive pulmonary disease, unspecified; I34.0 Nonrheumatic mitral (valve) insufficiency; I07.1 Rheumatic tricuspid insufficiency; I25.2 Old myocardial infarction; I70.222 Atherosclerosis of native arteries of extremities with rest pain, left leg; I74.5 Embolism and thrombosis of iliac artery; I70.209 Unspecified atherosclerosis of native arteries of extremities, unspecified extremity; I70.1 Atherosclerosis of renal artery; R91.1 Solitary pulmonary nodule; Z79.82 Long term (current) use of aspirin; Z79.899 Other long term (current) drug therapy; Z87.891 Personal history of nicotine dependence; Z88.8 Allergy status to other drugs, medicaments and biological substances; Z95.828 Presence of other vascular implants and grafts; Z98.62 Peripheral vascular angioplasty status

== ENCOUNTER 2018-01-27 21:46 | Emergency (ER) | payer OTHER ==
[~2018-01-27] VITALS: Ht 175.2 cm; Wt 69.9 kg
--- NOTE | ~2018-01-27 | EKG ---
[place], [place] ELECTROCARDIOGRAM REPORT NAME: RYAN JOHN UNIT #: [id number] ROOM: DOCTOR: EPIPHANY DRAFT REPORT BIRTHDATE: [birth year] [facility] Test Date: 2018-01-27 Test Time: 23:27:38 Pat Name: RYAN JOHN Department: ER Room: 2 Gender: M Plastic Dolls Mold Filler: : 1960 Requested By: DIDI ROCKWELL Order Number: [id number] Reading MD: Claudio Carpenter MD Measurements Intervals [place] Rate: 82 P: 75 MT: 176 QRS: -65 QRSD: 138 T: 115 QT: 486 QTc: 568 Interpretive Statements Sinus rhythm Multiple premature complexes, vent \T\ supraven Probable left atrial enlargement Left bundle branch block Baseline wander in lead(s) V2 Compared to ECG 12/26/2017 15:39:07 Sinus bradycardia no longer present Electronically Signed On 01-30-2018 11:13:27 PDT by Claudio Carpenter MD CM:EKGRPT:ELECTROCARDIOGRAM REPORT [id number] DIDI ROCKWELL MD EPIPHANY DRAFT REPORT DIDI ROCKWELL MD
[2018-01-27 22:41] LABS: ACT PARTIAL THROMBO TIME 23.1 SECONDS (20.8-31.5)
[2018-01-27 22:47] LABS: ALBUMIN 2.9 gm/dl (3.1-4.5); ALKALINE PHOSPHATASE 186 U/L (45-117); BUN 9 mg/dl (7-24); CHLORIDE 105 mmol/L (98-107); CREATININE 0.83 mg/dL (0.70-1.30); POTASSIUM 3.5 mmol/L (3.5-5.1); SGOT/AST 23 IU/L (3-35); SGPT/ALT 21 U/L (12-78); SODIUM 139 mmol/L (136-145); TOTAL PROTEIN 6.5 gm/dL (6.4-8.2)
[2018-01-27 23:17] LABS: BASO % 0.7 % (0.0-1.0); EOS # 0.3 10*3/uL (0.0-0.4); EOS % 4.7 % (1.0-4.0); HEMATOCRIT 43.3 % (42.0-52.0); HEMOGLOBIN 14.3 g/dl (14.0-18.0); LYMPH % 16.6 % (27.0-41.0); MEAN CELL VOLUME 85.7 fl (80.0-94.0); MEAN CORPUSCULAR HGB 28.3 pg (27.0-31.0); MEAN PLATELET VOLUME 8.9 fl (9.6-12.3); MONO # 0.9 10*3/uL (0.1-1.0); MONO % 15.5 % (3.0-9.0); NEUT # 3.7 10*3/uL (2.3-7.9); NEUT % 62.2 % (47.0-73.0); PLATELET COUNT AUTOMATED 144 10*3/uL (130-400); RED BLOOD COUNT 5.05 10*6/uL (4.50-5.90); RED CELL DISTRI WIDTH 14.8 % (0-14.5); WHITE BLOOD COUNT 5.9 10*3/uL (4.8-10.8)
[2018-02-11] MEDS ORDERED: LIPITOR80 MG PO (17:20)
[2018-02-11] MEDS ORDERED: PLAVIX75 M1 PO (17:21)
[2018-02-11] MEDS ORDERED: NATURE'S BLEND F1 MG PO (17:21)
[2018-02-11] MEDS ORDERED: THIAMINE HCL100 MG PO (17:22)
[2018-02-11] MEDS ORDERED: LISINOPRIL5 MG PO (17:22)
[2018-03-14] MEDS ORDERED: OMNICEF300 MG PO (12:17)
[2018-03-14] MEDS ORDERED: FLAGYL500 MG PO (12:18)
[2018-03-14] MEDS ORDERED: MICRO-GUARD85 GM TP (12:19)
[2018-03-14] MEDS ORDERED: NEURONTIN300 MG PO (12:21)
[2018-03-14] MEDS ORDERED: ACETAMINOPHEN325 M2 PO (12:22)
[2018-03-14] MEDS ORDERED: VENTOLIN 02.5 MG/3 M INH (12:23)
[2018-03-14] MEDS ORDERED: PROTONIX40 M1 IV (12:24)
[2018-03-14] MEDS ORDERED: PANTOPRAZOLE SO40 MG PO (12:25)
[2018-03-14] MEDS ORDERED: ULTRAM50 MG PO (12:26)
[2018-03-14] MEDS ORDERED: ELIQUIS5 M1 PO (12:31)
[2018-03-14] MEDS ORDERED: PLAVIX75 M1 PO (12:31)
[2018-03-22] MEDS ORDERED: Lanoxin PO (10:36)
[2018-03-22] MEDS ORDERED: HYDROCODONE-AC1 EAC1 PO (10:36)
[2018-03-22] MEDS ORDERED: ALDACTONE25 MG PO (10:36)
[2018-03-22] MEDS ORDERED: PREDNISONE10 MG PO (10:36)
[2018-03-22] MEDS ORDERED: NYSTOP60 GM T (10:36)
[2018-04-13] MEDS ORDERED: DIGOX125 MCG PO (02:51)
== END 2018-01-28 00:06 | disposition short-term general hospital (02) ==
LOC: ED 21:46
PROVIDERS: Student in an Organized Health Care Education/Training Program
DX: I77.89 Other specified disorders of arteries and arterioles (principal); I25.10 Atherosclerotic heart disease of native coronary artery without angina pectoris; J44.9 Chronic obstructive pulmonary disease, unspecified; K21.9 Gastro-esophageal reflux disease without esophagitis; I11.0 Hypertensive heart disease with heart failure; I50.20 Unspecified systolic (congestive) heart failure; F17.200 Nicotine dependence, unspecified, uncomplicated; Z88.8 Allergy status to other drugs, medicaments and biological substances; Z79.899 Other long term (current) drug therapy; Z79.82 Long term (current) use of aspirin

== ENCOUNTER 2018-05-01 09:41 | Emergency (ER) | payer OTHER ==
[~2018-05-01] VITALS: Ht 175.2 cm; Wt 69.9 kg
--- NOTE | ~2018-05-01 | EKG ---
[place], [place] ELECTROCARDIOGRAM REPORT NAME: RYAN JOHN UNIT #: [id number] ROOM: DOCTOR: EPIPHANY DRAFT REPORT BIRTHDATE: [birth year] [facility] Test Date: 2018-05-01 Test Time: 10:19:22 Pat Name: RYAN JOHN Department: Room: Gender: Dump Grounds Checker: Jodie Trujillo : 1960 Requested By: TARAH SIMMS Order Number: [id number] Reading MD: Rocky Kaba MD Measurements Intervals [place] Rate: 60 P: 85 MN: 204 QRS: -67 QRSD: 141 T: 110 QT: 506 QTc: 506 Interpretive Statements Sinus rhythm Atrial premature complex Borderline prolonged MN interval Probable left atrial enlargement Left bundle branch block Baseline wander in lead(s) V3 Compared to ECG 04/13/2018 05:21:53 No significant changes Electronically Signed On 05-05-2018 13:06:20 PST by Rocky Kaba MD CM:EKGRPT:ELECTROCARDIOGRAM REPORT [id number] TARAH SANTOS DRAFT REPORT TARAH SIMMS DO
[~2018-05-01 09:41] MED LIST changes: +ACETAMINOPHEN325 M2 PO; +DIGOX125 MCG PO; +HYDROCODONE-AC1 EAC1 PO; +LIPITOR80 MG PO; +Lanoxin PO; +MICRO-GUARD85 GM TP; +NEURONTIN300 MG PO; +NYSTOP60 GM T; +OMNICEF300 MG PO; +PANTOPRAZOLE SO40 MG PO; +PLAVIX75 M1 PO; +PROTONIX40 M1 IV; +THIAMINE HCL100 MG PO; +ULTRAM50 MG PO; +VENTOLIN 02.5 MG/3 M INH
[2018-05-01 10:13] LABS: BASO # 0.1 10*3/uL (0.0-0.1); BASO % 0.8 % (0.0-1.0); EOS # 0.1 10*3/uL (0.0-0.4); EOS % 1.9 % (1.0-4.0); HEMATOCRIT 43.3 % (42.0-52.0); HEMOGLOBIN 13.8 g/dl (14.0-18.0); LYMPH # 1.5 10*3/uL (1.3-4.4); LYMPH % 24.7 % (27.0-41.0); MEAN CELL VOLUME 81.2 fl (80.0-94.0); MEAN CORPUSCULAR HGB 25.9 pg (27.0-31.0); MEAN CORPUSCULAR HGB CONC 31.9 g/dl (33.0-37.0); MEAN PLATELET VOLUME 11.1 fl (9.6-12.3); MONO # 0.9 10*3/uL (0.1-1.0); MONO % 14.4 % (3.0-9.0); NEUT # 3.6 10*3/uL (2.3-7.9); NEUT % 57.9 % (47.0-73.0); PLATELET COUNT AUTOMATED 186 10*3/uL (130-400); RED BLOOD COUNT 5.33 10*6/uL (4.50-5.90); RED CELL DISTRI WIDTH 16.9 % (0-14.5); WHITE BLOOD COUNT 6.2 10*3/uL (4.8-10.8)
[2018-05-01 10:32] LABS: ALBUMIN 3.7 gm/dl (3.1-4.5); ALKALINE PHOSPHATASE 171 U/L (45-117); BUN 11 mg/dl (7-24); CHLORIDE 106 mmol/L (98-107); CREATININE 0.98 mg/dL (0.70-1.30); POTASSIUM 4.6 mmol/L (3.5-5.1); SGOT/AST 20 IU/L (3-35); SGPT/ALT 23 U/L (12-78); SODIUM 137 mmol/L (136-145); TOTAL PROTEIN 7.3 gm/dL (6.4-8.2)
[2018-05-01 10:33] LABS: TROPONIN I 0.018 ng/ml (<0.045)
[2018-05-01 10:49] LABS: ACT PARTIAL THROMBO TIME 23.5 SECONDS (20.8-31.5)
== END 2018-05-01 16:00 | disposition short-term general hospital (02) ==
LOC: ED 09:41
PROVIDERS: Internal Medicine
DX: I77.1 Stricture of artery (principal); R23.0 Cyanosis; I11.0 Hypertensive heart disease with heart failure; I50.20 Unspecified systolic (congestive) heart failure; I48.91 Unspecified atrial fibrillation; I25.10 Atherosclerotic heart disease of native coronary artery without angina pectoris; J44.9 Chronic obstructive pulmonary disease, unspecified; K21.9 Gastro-esophageal reflux disease without esophagitis; E78.5 Hyperlipidemia, unspecified; I73.9 Peripheral vascular disease, unspecified; F17.200 Nicotine dependence, unspecified, uncomplicated; Z88.8 Allergy status to other drugs, medicaments and biological substances; Z88.1 Allergy status to other antibiotic agents; Z79.899 Other long term (current) drug therapy; Z89.021 Acquired absence of right finger(s); Z86.73 Personal history of transient ischemic attack (TIA), and cerebral infarction without residual deficits

== ENCOUNTER 2018-07-01 22:16 | Emergency (ER) | payer OTHER ==
[~2018-07-01] VITALS: Ht 172.7 cm; Wt 63.5 kg
--- NOTE | ~2018-07-01 | EKG ---
[place], [place] ELECTROCARDIOGRAM REPORT NAME: RYAN JOHN UNIT #: [id number] ROOM: DOCTOR: SOHAN DRAFT REPORT BIRTHDATE: [birth year] [facility] Test Date: 2018-07-01 Test Time: 22:31:57 Pat Name: RYAN JOHN Department: Room: Gender: Office Helper Clerical: : 1960 Requested By: TITO FLANAGAN Order Number: [id number] Reading MD: Measurements Intervals [place] Rate: 72 P: 42 VT: 242 QRS: -67 QRSD: 151 T: 125 QT: 523 QTc: 573 Interpretive Statements Sinus rhythm Prolonged VT interval Left bundle branch block Compared to ECG 05/01/2018 10:19:22 Atrial premature complex(es) no longer present CM:EKGRPT:ELECTROCARDIOGRAM REPORT 30 40 TITO SANTOS DRAFT REPORT TITO FLANAGAN DO
[2018-07-01 22:54] LABS: BASO # 0.1 10*3/uL (0.0-0.1); BASO % 0.6 % (0.0-1.0); EOS # 0.3 10*3/uL (0.0-0.4); EOS % 3.4 % (1.0-4.0); HEMATOCRIT 28.6 % (42.0-52.0); HEMOGLOBIN 8.8 g/dl (14.0-18.0); LYMPH # 1.1 10*3/uL (1.3-4.4); MEAN CELL VOLUME 74.3 fl (80.0-94.0); MEAN CORPUSCULAR HGB 22.9 pg (27.0-31.0); MEAN CORPUSCULAR HGB CONC 30.8 g/dl (33.0-37.0); MEAN PLATELET VOLUME 9.5 fl (9.6-12.3); MONO # 1.1 10*3/uL (0.1-1.0); MONO % 10.9 % (3.0-9.0); NEUT # 7.3 10*3/uL (2.3-7.9); NEUT % 73.6 % (47.0-73.0); PLATELET COUNT AUTOMATED 140 10*3/uL (130-400); RED BLOOD COUNT 3.85 10*6/uL (4.50-5.90); RED CELL DISTRI WIDTH 17.5 % (0-14.5)
[2018-07-01 23:13] LABS: ACT PARTIAL THROMBO TIME 28.7 SECONDS (20.8-31.5); INTERNATIONAL NORM RATIO 1.1 (2.0-3.5)
[2018-07-01 23:20] LABS: ALBUMIN 2.9 gm/dl (3.1-4.5); ALKALINE PHOSPHATASE 359 U/L (45-117); BUN 12 mg/dl (7-24); CHLORIDE 93 mmol/L (98-107); CREATININE 0.85 mg/dL (0.70-1.30); POTASSIUM 4.1 mmol/L (3.5-5.1); SGOT/AST 16 IU/L (3-35); SGPT/ALT 22 U/L (12-78); SODIUM 131 mmol/L (136-145); TOTAL PROTEIN 6.8 gm/dL (6.4-8.2); TROPONIN I 0.017 ng/ml (<0.045)
== END 2018-07-02 03:47 | disposition short-term general hospital (02) ==
LOC: ED 22:16
PROVIDERS: Student in an Organized Health Care Education/Training Program
DX: L03.116 Cellulitis of left lower limb (principal); I95.9 Hypotension, unspecified; I48.91 Unspecified atrial fibrillation; I25.10 Atherosclerotic heart disease of native coronary artery without angina pectoris; I11.0 Hypertensive heart disease with heart failure; I50.20 Unspecified systolic (congestive) heart failure; J44.9 Chronic obstructive pulmonary disease, unspecified; K21.9 Gastro-esophageal reflux disease without esophagitis; E78.5 Hyperlipidemia, unspecified; I73.9 Peripheral vascular disease, unspecified; F17.200 Nicotine dependence, unspecified, uncomplicated; Z88.8 Allergy status to other drugs, medicaments and biological substances; Z88.1 Allergy status to other antibiotic agents; Z79.899 Other long term (current) drug therapy; Z86.718 Personal history of other venous thrombosis and embolism; Z89.021 Acquired absence of right finger(s); Z89.512 Acquired absence of left leg below knee

== ENCOUNTER → 2018-10-29 | Outpatient (CLI) | payer OTHER | END | disposition home or self-care (01) | LOC: RESCLI 00:22 | DX: I11.0 Hypertensive heart disease with heart failure (principal); I50.22 Chronic systolic (congestive) heart failure; K21.9 Gastro-esophageal reflux disease without esophagitis; I25.10 Atherosclerotic heart disease of native coronary artery without angina pectoris; I70.222 Atherosclerosis of native arteries of extremities with rest pain, left leg; F33.1 Major depressive disorder, recurrent, moderate; E78.2 Mixed hyperlipidemia; E55.9 Vitamin D deficiency, unspecified; E53.8 Deficiency of other specified B group vitamins; D64.9 Anemia, unspecified; G62.9 Polyneuropathy, unspecified; G54.6 Phantom limb syndrome with pain; G89.29 Other chronic pain; Z79.899 Other long term (current) drug therapy ==

== ENCOUNTER 2018-11-29 12:39 | Emergency (ER) | payer OTHER ==
[~2018-11-29] VITALS: Ht 182.8 cm; Wt 79.4 kg
[2018-11-29 13:18] LABS: BASO % 0.3 % (0.0-1.0); EOS # 0.1 10*3/uL (0.0-0.4); EOS % 0.5 % (1.0-4.0); HEMATOCRIT 45.6 % (42.0-52.0); HEMOGLOBIN 14.8 g/dl (14.0-18.0); LYMPH # 0.9 10*3/uL (1.3-4.4); LYMPH % 7.3 % (27.0-41.0); MEAN CELL VOLUME 82.8 fl (80.0-94.0); MEAN CORPUSCULAR HGB 26.9 pg (27.0-31.0); MEAN CORPUSCULAR HGB CONC 32.5 g/dl (33.0-37.0); MEAN PLATELET VOLUME 9.5 fl (9.6-12.3); MONO # 1.5 10*3/uL (0.1-1.0); MONO % 12.5 % (3.0-9.0); NEUT # 9.5 10*3/uL (2.3-7.9); NEUT % 79.1 % (47.0-73.0); PLATELET COUNT AUTOMATED 144 10*3/uL (130-400); RED BLOOD COUNT 5.51 10*6/uL (4.50-5.90); RED CELL DISTRI WIDTH 19.4 % (0-14.5)
[2018-11-29 13:33] LABS: ALBUMIN 3.1 gm/dl (3.1-4.5); ALKALINE PHOSPHATASE 164 U/L (45-117); BUN 12 mg/dl (7-24); CHLORIDE 101 mmol/L (98-107); CREATININE 0.63 mg/dL (0.70-1.30); POTASSIUM 3.7 mmol/L (3.5-5.1); SGOT/AST 7 IU/L (3-35); SGPT/ALT 12 U/L (12-78); SODIUM 133 mmol/L (136-145); TOTAL PROTEIN 7.1 gm/dL (6.4-8.2)
== END 2018-11-29 19:39 | disposition short-term general hospital (02) ==
LOC: ED 12:39
PROVIDERS: Nurse Practitioner Family
DX: L03.116 Cellulitis of left lower limb (principal); L02.416 Cutaneous abscess of left lower limb; F17.200 Nicotine dependence, unspecified, uncomplicated; Z89.612 Acquired absence of left leg above knee; Z88.8 Allergy status to other drugs, medicaments and biological substances; Z88.1 Allergy status to other antibiotic agents; Z79.899 Other long term (current) drug therapy

== ENCOUNTER 2019-01-24 11:14 | Emergency (ER) | payer OTHER ==
[~2019-01-24] VITALS: Ht 175.2 cm; Wt 66.2 kg
[2019-01-24 11:50] LABS: HEMATOCRIT 44.7 % (42.0-52.0); HEMOGLOBIN 14.6 g/dl (14.0-18.0); MEAN CELL VOLUME 81.9 fl (80.0-94.0); MEAN CORPUSCULAR HGB 26.7 pg (27.0-31.0); MEAN CORPUSCULAR HGB CONC 32.7 g/dl (33.0-37.0); MEAN PLATELET VOLUME 9.4 fl (9.6-12.3); PLATELET COUNT AUTOMATED 178 10*3/uL (130-400); RED BLOOD COUNT 5.46 10*6/uL (4.50-5.90); RED CELL DISTRI WIDTH 15.8 % (0-14.5)
[2019-01-24 12:05] LABS: ALBUMIN 3.6 gm/dl (3.1-4.5); ALKALINE PHOSPHATASE 166 U/L (45-117); BUN 12 mg/dl (7-24); CHLORIDE 101 mmol/L (98-107); CREATININE 0.58 mg/dL (0.70-1.30); POTASSIUM 3.7 mmol/L (3.5-5.1); SGOT/AST 5 IU/L (3-35); SGPT/ALT 11 U/L (12-78); SODIUM 134 mmol/L (136-145); TOTAL PROTEIN 7.6 gm/dL (6.4-8.2)
[2019-01-24 12:11] LABS: TOTAL CELLS COUNTED 100 #CELLS
[2019-01-24 12:12] LABS: PLATELET SUFFICIENCY NORMAL (NORMAL)
== END 2019-01-24 13:26 | disposition home or self-care (01) ==
LOC: ED 11:14
PROVIDERS: Nurse Practitioner Family
DX: G89.29 Other chronic pain (principal); M79.605 Pain in left leg; F17.200 Nicotine dependence, unspecified, uncomplicated; Z89.612 Acquired absence of left leg above knee; Z88.8 Allergy status to other drugs, medicaments and biological substances; Z88.1 Allergy status to other antibiotic agents; Z79.899 Other long term (current) drug therapy

== ENCOUNTER 2019-01-26 06:53 | Emergency (ER) | payer OTHER ==
[~2019-01-26] VITALS: Ht 175.2 cm; Wt 65.8 kg
[2019-01-27] MEDS ORDERED: ASPIRIN ADULT L81 M1 PO (13:53)
[2019-01-27] MEDS ORDERED: LISINOPRIL2.5 MG PO (13:53)
[2019-01-27] MEDS ORDERED: LIPITOR40 MG PO (13:54)
[2019-01-27] MEDS ORDERED: AMIODARONE HYD200 MG PO (13:54)
[2019-01-27] MEDS ORDERED: WELLBUTRIN SR150 MG PO (13:54)
[2019-01-27] MEDS ORDERED: COREG3.125 MG PO (13:54)
[2019-01-27] MEDS ORDERED: ELIQUIS5 M1 PO (13:55)
[2019-01-27] MEDS ORDERED: OXYCODONE HCL10 M1 PO (13:55)
[2019-01-27] MEDS ORDERED: GABAPENTIN800 MG PO (13:55)
[2019-01-27] MEDS ORDERED: GOOD NEIGHBOR P20 MG PO (13:55)
[2019-01-27] MEDS ORDERED: SENNA-TIME S T1 EACH PO (13:56)
== END 2019-01-26 08:20 | disposition home or self-care (01) ==
LOC: ED 06:53
DX: G89.29 Other chronic pain (principal); R22.42 Localized swelling, mass and lump, left lower limb; F17.200 Nicotine dependence, unspecified, uncomplicated; I48.91 Unspecified atrial fibrillation; I25.10 Atherosclerotic heart disease of native coronary artery without angina pectoris; J44.9 Chronic obstructive pulmonary disease, unspecified; I11.0 Hypertensive heart disease with heart failure; I50.9 Heart failure, unspecified; K21.9 Gastro-esophageal reflux disease without esophagitis; E78.5 Hyperlipidemia, unspecified; Z95.5 Presence of coronary angioplasty implant and graft; Z86.718 Personal history of other venous thrombosis and embolism; Z88.8 Allergy status to other drugs, medicaments and biological substances

== ENCOUNTER 2019-01-27 10:23 | Inpatient (IN) | payer OTHER ==
[~2019-01-27] VITALS: Ht 175.2 cm; Wt 86.6 kg
[2019-01-27 10:23] VITALS: BP 124/76
--- NOTE | 2019-01-27 11:45 | NUR ---
CALLS OUT WANTING SOMETHING FOR PAIN. DR PARKER AWARE.
[2019-01-27 12:00] VITALS: BP 110/67
[2019-01-27 12:49] LABS: BASO % 0.2 % (0.0-1.0); EOS % 0.3 % (1.0-4.0); HEMOGLOBIN 14.2 g/dl (14.0-18.0); LYMPH # 0.8 10*3/uL (1.3-4.4); LYMPH % 7.5 % (27.0-41.0); MEAN CELL VOLUME 81.6 fl (80.0-94.0); MEAN CORPUSCULAR HGB 26.9 pg (27.0-31.0); MEAN PLATELET VOLUME 9.8 fl (9.6-12.3); MONO # 1.5 10*3/uL (0.1-1.0); MONO % 13.8 % (3.0-9.0); NEUT # 8.3 10*3/uL (2.3-7.9); NEUT % 77.8 % (47.0-73.0); PLATELET COUNT AUTOMATED 205 10*3/uL (130-400); RED BLOOD COUNT 5.27 10*6/uL (4.50-5.90); RED CELL DISTRI WIDTH 15.8 % (0-14.5); WHITE BLOOD COUNT 10.6 10*3/uL (4.8-10.8)
[2019-01-27 13:02] LABS: ACT PARTIAL THROMBO TIME 29.1 SECONDS (20.0-32.1)
[2019-01-27 13:03] LABS: ALBUMIN 3.2 gm/dl (3.1-4.5); ALKALINE PHOSPHATASE 185 U/L (45-117); BUN 10 mg/dl (7-24); CHLORIDE 98 mmol/L (98-107); CREATININE 0.61 mg/dL (0.70-1.30); LIPASE 111 U/L (73-393); POTASSIUM 3.9 mmol/L (3.5-5.1); SGOT/AST 7 IU/L (3-35); SGPT/ALT 11 U/L (12-78); SODIUM 131 mmol/L (136-145); TOTAL PROTEIN 7.2 gm/dL (6.4-8.2); TROPONIN I < 0.015 ng/ml (<0.045)
--- NOTE | 2019-01-27 13:10 | NUR ---
VANCOMYCIN PULLED FROM ED PYXSIS, HANDED TO NURSE FOR ROOM 428 AHMET
--- NOTE | 2019-01-27 13:10 | NUR ---
A 58, admitted to 4E, under the services of KELIN Jimenez DO with a diagnosis of CELLULITIS OF LEFT EXTREMITY. Chief complaint is PAIN. Patient arrived via bed from ER. Monitor applied. Initial assessment completed. Vital signs taken and recorded. KELIN JIMENEZ DO notified of admission to the unit. Orders received. See assessment for past medical history, medications and allergies. Patient and/or family oriented to unit. [facility] visitation policy reviewed. Clothing/patient valuable form completed. DAGMAR MOY
[2019-01-27] MEDS ORDERED: LISINOPRIL2.5 MG PO (13:53)
[2019-01-27] MEDS ORDERED: ASPIRIN ADULT L81 M1 PO (13:53)
[2019-01-27] MEDS ORDERED: LIPITOR40 MG PO (13:54)
[2019-01-27] MEDS ORDERED: COREG3.125 MG PO (13:54)
[2019-01-27] MEDS ORDERED: WELLBUTRIN SR150 MG PO (13:54)
[2019-01-27] MEDS ORDERED: AMIODARONE HYD200 MG PO (13:54)
[2019-01-27] MEDS ORDERED: ELIQUIS5 M1 PO (13:55)
[2019-01-27] MEDS ORDERED: GABAPENTIN800 MG PO (13:55)
[2019-01-27] MEDS ORDERED: GOOD NEIGHBOR P20 MG PO (13:55)
[2019-01-27] MEDS ORDERED: OXYCODONE HCL10 M1 PO (13:55)
[2019-01-27] MEDS ORDERED: SENNA-TIME S T1 EACH PO (13:56)
[2019-01-27 14:00] VITALS: BP 138/82
[2019-01-27 14:01] VITALS: BP 138/82
--- NOTE | 2019-01-27 15:32 | NUR ---
PT C/O 10/10 PAIN IN LEFT STUMP AND MEDICATED WITH IV MORPHINE PER ORDER. WILL MONITOR FOR EFFECTIVENESS.
--- NOTE | 2019-01-27 16:24 | NUR ---
infectous disease notified of new consult PATIENT TO CAT SCAN AT THIS TIME
--- NOTE | 2019-01-27 16:44 | NUR ---
PHYSICAL THERAPY Nursing screen received and chart reviewed. PT referral received. Thank you. Idania Yang,PT,DPT.
--- NOTE | 2019-01-27 17:17 | NUR ---
PATIENT COMPLAINING OF LEFT BKE PAIN.7 OUT OF 10 ON PAIN SCALE MEDICATED WWITH OXYCODONE PER ORDERS .
[2019-01-27 19:39] VITALS: BP 107/82
--- NOTE | 2019-01-27 19:55 | NUR ---
MEDICATED WITH MS SLOW IV PUSH FOR C/O LEFT AKA PAIN RATED A 9/10.
--- NOTE | 2019-01-27 21:16 | NUR ---
MEDICATED WITH OXYCODONE FOR C/O LEFT PAIN AT AMPUTATION SITE. SITE REDDENED & PAINFUL TO PATIENT. RATED PAIN A 10/10.
--- NOTE | 2019-01-27 22:22 | NUR ---
RESTING IN BED WITH EYES CLOSED; MEDICATION GIVEN EARLIER APPEARS TO BE EFFECTIVE. CALL LIGHT WITHIN REACH.
[2019-01-28] VITALS: BP 96/70
--- NOTE | 2019-01-28 00:05 | NUR ---
MORPHINE GIVEN PER ORDER FOR 10/10 LEFT STUMP PAIN PER PT. ALSO RESTORIL GIVEN TO HELP PATIENT SLEEP. SEE MAR.
--- NOTE | 2019-01-28 01:36 | NUR ---
MEDICATED WITH OXYCODONE FOR C/O LEFT LEG PAIN AT AMPUTATION SITE. PAIN RATED A 10/10.
--- NOTE | 2019-01-28 02:20 | NUR ---
RESTING IN BED WITH EYES CLOSED; PAIN MEDICATION APPARENTLY EFFECTIVE. CALL LIGHT WITHIN REACH.
--- NOTE | 2019-01-28 06:08 | NUR ---
MEDICATED WITH MS FOR C/O LEFT STUMP PAIN. PAIN RATED A 10/10.
--- NOTE | 2019-01-28 06:44 | NUR ---
RYAN JOHN [id number] Please refer to the physician's history and physical for past medical history, comorbid conditions, and allergies. Diagnosis: CELLULITIS OF LEFT LOWER EXTREMITY Alexander Score: 16,AT RISK WOUND DESCRIPTIONS: Wound Number: 1 Location of the wound: left stump Thickness: Partial Size: 2.2cm x 0.5cm x 0.1cm Tunneling: none Undermining: none Sinus Tract: none Presence of Exudate: Serous Amount: Light Color: red Odor: None Periwound Skin Appearance: Erythema measuring 15.0cm x 21.5cm x <0.1cm Wound edges: approximated Pain (associated with wound): tender to touch How does patient state this happened? pt stated that it started hurting on friday and he wasn't even aware that the area was opened he stated that he had surgery with Dr. Parra from [facility] in July of this year. Surface the patient is resting on: Position Pro SKIN PREVENTION RECOMMENDATION: 1. Pressure redistribution support surface as appropriate 2. Elevate heels 3. Remove boots/TEDS every shift and reapply 4. Head of bed 30 degrees as tolerated 5. Assess nutrition and hydration 6. Manage moisture 7. Avoid the use of containment devices while in bed 8. Use absorptive products on surfaces limit layers of linens on bed 9. Turn and reposition every 1-2 hours in bed and every 1 hour in chair as tolerated 10. Weight shifts every 15 minutes while up in chair 11. Offloading with pillows or device to keep heels elevated off bed 12. Monitor skin at least every shift 13. Inspect under medical devices twice a day WOUND TREATMENT RECOMMENDATIONS: Consult surgery regarding CT scan of left stump. Cleanse left stump with nss and apply adaptic and dsd daily and prn for soiling until seen by surgery for further wound care orders.
--- NOTE | 2019-01-28 06:58 | NUR ---
NOTIFIED DR. GUERRIER OF CT RESULTS OF FEMUR REGARDING DISTAL FEMUR CONSISTENT WITH ABSCESS/OSTEOMYELITIS.
[2019-01-28 07:21] LABS: BUN 11 mg/dl (7-24); CHLORIDE 95 mmol/L (98-107); CHOLESTEROL 112 mg/dL (<200); CREATININE 0.76 mg/dL (0.70-1.30); HDL CHOLESTEROL 44 mg/dl (40-60); LDL CHOLESTEROL 48 mg/dL (9-159); TRIGLYCERIDES 98 mg/dl (<150); VLDL CHOLESTEROL 20 mg/dL (6-40)
[2019-01-28 07:37] LABS: SODIUM 128 mmol/L (136-145)
[2019-01-28 07:43] LABS: POTASSIUM 5.1 mmol/L (3.5-5.1)
[2019-01-28 07:44] LABS: HEMATOCRIT 38.5 % (42.0-52.0); HEMOGLOBIN 12.7 g/dl (14.0-18.0); MEAN CELL VOLUME 81.2 fl (80.0-94.0); MEAN CORPUSCULAR HGB 26.8 pg (27.0-31.0); MEAN PLATELET VOLUME 9.2 fl (9.6-12.3); PLATELET COUNT AUTOMATED 194 10*3/uL (130-400); RED BLOOD COUNT 4.74 10*6/uL (4.50-5.90); RED CELL DISTRI WIDTH 15.6 % (0-14.5); WHITE BLOOD COUNT 11.6 10*3/uL (4.8-10.8)
[2019-01-28 07:55] LABS: VITAMIN D, 25-HYDROXY 15.3 ng/mL (30-100)
--- NOTE | 2019-01-28 07:58 | NUR ---
DR. JOHNSON CALLED. CONSULT COMPLETED. STATED THAT HE WOULD BE UP AFTER SURGERY TO SEE THE PATIENT.
[2019-01-28 08:00] VITALS: BP 108/86
[2019-01-28 08:12] LABS: OVALOCYTES FEW; PLATELET SUFFICIENCY NORMAL (NORMAL); TOTAL CELLS COUNTED 100 #CELLS
[2019-01-28 08:13] LABS: POLYCHROMASIA SLIGHT; SCHISTOCYTES FEW
--- NOTE | 2019-01-28 08:20 | NUR ---
24 HR chart check completed.
--- NOTE | 2019-01-28 09:00 | NUR ---
Grinder Mill Operator in to talk to patient. Patient states lives at home with friend. There are few steps in the home. Physician: lexy bob [facility] Home health services: [facility] Patient's level of ADLs: MINIMAL ASSIST Patient has working utilities: all working DME: wheelchair, walker Follow-up physician's appointment after d/c: will be made by hospitalist nurse director upon discharge Does patient want to access PORTAL?: no Discharge plan discussed with patient, he states he lives at home with a friend, he states he is primarily wheelchair bound at home since his amputation, he has a walker if needed, he states he has OV currently and talked with Erlin from [facility] and will begin their servcies at home when discharged. discussed with patient if he would need ferry terminal supervisor iv antibiotics and wound care if there was a skilled facility he would like to be referred to. he stated he was at [facility] previously and would like to return there if needed, case management will follow for discharge needs. LAKSHMI ALFONSO
--- NOTE | 2019-01-28 10:16 | NUR ---
Dr. Renner notified of wound care recommendations.
--- NOTE | 2019-01-28 10:35 | NUR ---
Occupational Therapy evaluation completed on 4 with full eval to follow. PRecautions include Left AKA, ww and w/c use at home with son, IV UE, low complexity level 65025 via chart review, testing and evaluation. REcommend no further OT at this time. Patient is independent after set up for ADLs and uses a ww w/ good safety. Thank you. Ammy Christopher OTR/l
--- NOTE | 2019-01-28 10:35 | NUR ---
PHYSICAL THERAPY Physical therapy evaluation only complete, 4E. Full evaluation/details to follow. Low complexity PT evaluation (67484) per chart review and evaluation. Patient is independent with FWW and uses w/c at home and in community for longer distances. No PT needs at this time. Recommend return home at discharge. Thank you. Idania Yang,PT,DPT.
--- NOTE | 2019-01-28 11:11 | NUR ---
KAMILAH MCCRACKEN CNP CURRENTLY ON UNIT. NOTIFIED HER OF CONSULT. CONSULT COMPLETED.
[2019-01-28 12:00] VITALS: BP 97/61
--- NOTE | 2019-01-28 13:35 | NUR ---
Discharge instructions reviewed with patient/family. Patient receptive and verbalizes understanding. Follow-up care arranged. Written instructions given to patient/family. IV WAS REMOVED. PT HAD NO QUESTIONS AFTER D/C PAPERWORK WAS GIVEN. PT IS AMBULATORY AND WANTED TO WALK OUT WITH AND FAMILY. STELLA JARQUIN
[2019-01-28 16:00] VITALS: BP 104/47
--- NOTE | 2019-01-28 16:00 | NUR ---
Pt c/o pain. 02/18. Medicated for stump pain as ordered. Respirations easy and regular. Dressing on stump intact. Skin warm and dry. Verbalized relief. No acute distress noted at this time.
--- NOTE | 2019-01-28 16:21 | NUR ---
Nursing screen and occupational therapy referral received. Thank you. Ammy Christopher OTR/L
[2019-01-28 20:00] VITALS: BP 110/70
--- NOTE | 2019-01-28 23:38 | NUR ---
PRN MORPHINE GIVEN FOR COMPLAINTS OF LLE PAIN RATED A 10/10. WILL MONITOR FOR EFFECTIVENESS.
[2019-01-29] VITALS (8 sets, daily range): BP systolic 92–133; BP diastolic 56–97
--- NOTE | 2019-01-29 00:29 | NUR ---
RE-EVALUATED AFTER PRN MORPHINE. PT STATES THAT PAIN IS MUCH IMPROVED. CONTINUE TO MONITOR THE PT.
--- NOTE | 2019-01-29 04:08 | NUR ---
PRN OXYCODONE GIVEN FOR COMPLAINTS OF LLE PAIN RATED A 9/10. WILL MONITOR FOR EFFECTIVENESS.
--- NOTE | 2019-01-29 04:14 | NUR ---
PRN ROXICODONE GIVEN FOR COMPLAINTS OF LLE PAIN RATED 9/10. WILL MONITOR FOR EFFECTIVENESS.
--- NOTE | 2019-01-29 05:05 | NUR ---
RE-EVALUATED AT THIS TIME. PRN OXYCODONE EFFECTIVE PER PT. CONTINUE TO MONITOR THE PT.
--- NOTE | 2019-01-29 05:10 | NUR ---
RE-EVALUATED AT THIS TIME. PRN ROXICODONE EFFECTIVE PER PT. CONTINUE TO MONITOR THE PT.
--- NOTE | 2019-01-29 06:42 | NUR ---
SPOKE WITH DR JOHNSON ABOUT THE PTS LLE DRAINING FROM THE ASPIRATION SITE WHICH STARTED OVER THE LAST X15 MIN. ORDERS RECEIVED. CONTINUE TO MONITOR THE PT.
--- NOTE | 2019-01-29 06:55 | NUR ---
CHANGED DRESSING TO LLE. PER DR JOHNSON PLACED ABD'S AND 4X4 WITH CURLEX. ADAPTIC AND CURLEX PREVIOUSLY REMAINS IN PLACE. CONTINUE TO MONITOR THE PT.
--- NOTE | 2019-01-29 08:53 | NUR ---
MEDICATED WITH MORPHINE IV FOR COMPLAINTS OF PAIN IN LEFT AMPUTATION (STUMP) SITE. RATES PAIN AN 8 ON A PAIN SCALE OF 1-10
[2019-01-29 09:18] LABS: HEMATOCRIT 38.6 % (42.0-52.0); HEMOGLOBIN 12.1 g/dl (14.0-18.0); MEAN CELL VOLUME 83.9 fl (80.0-94.0); MEAN CORPUSCULAR HGB 26.3 pg (27.0-31.0); MEAN CORPUSCULAR HGB CONC 31.3 g/dl (33.0-37.0); MEAN PLATELET VOLUME 9.7 fl (9.6-12.3); PLATELET COUNT AUTOMATED 192 10*3/uL (130-400); RED CELL DISTRI WIDTH 15.7 % (0-14.5); WHITE BLOOD COUNT 9.3 10*3/uL (4.8-10.8)
[2019-01-29 09:30] LABS: BUN 14 mg/dl (7-24); CHLORIDE 94 mmol/L (98-107); CREATININE 0.59 mg/dL (0.70-1.30); SODIUM 128 mmol/L (136-145)
--- NOTE | 2019-01-29 09:30 | NUR ---
MORPHINE EFFECTIVE FOR SLEEP
[2019-01-29 09:38] LABS: TOTAL CELLS COUNTED 100 #CELLS
[2019-01-29 09:39] LABS: BURR CELLS FEW; PLATELET SUFFICIENCY NORMAL (NORMAL); POLYCHROMASIA SLIGHT; SCHISTOCYTES FEW
--- NOTE | 2019-01-29 10:45 | NUR ---
TAKEN TO OR FOR IND LEFT STUMP.
--- NOTE | 2019-01-29 11:23 | NUR ---
HEEL TOP LIFT SPLITTER faxed Palliative Order to Community. -CIRO HidalgoW
--- NOTE | 2019-01-29 11:39 | NUR ---
Patient referred to Rick RUGGIERO, requires precert.
--- NOTE | 2019-01-29 15:18 | NUR ---
BACK FROM OR. DOLORES. CONSENT SIGNED FOR OLD RECORDS FROM [facility].
--- NOTE | 2019-01-29 15:58 | NUR ---
OXY-IR GIVEN FOR C/O LT STUMP PAIN. RATES 10/10 ON PAIN SCALE. WILL MONITOR.
--- NOTE | 2019-01-29 17:00 | NUR ---
OXY-IR EFFECTIVE PER PT.
--- NOTE | 2019-01-29 20:00 | NUR ---
PT RESTING IN BED WITH HOB ELEVATED. C/O LEFT LEG/STUMP PAIN, RATES PAIN 10 ON PAIN SCALE 0-10. MEDICATED WITH OXYCODONE PO PER PRN ORDER, SEE EMAR. IVF INFUSING WITH NO PROBLEM. WOUND VAC IN PLACE. CALL LIGHT IN REACH.
--- NOTE | 2019-01-29 21:00 | NUR ---
PT STATES PAIN MEDICATIONS HELPS, CALL LIGHT IN REACH.
[2019-01-30] VITALS (7 sets, daily range): BP systolic 90–119; BP diastolic 60–82
--- NOTE | 2019-01-30 03:39 | NUR ---
24 HR chart check completed.
--- NOTE | 2019-01-30 04:00 | NUR ---
SLEEPING IN BED. RESP-EASY AND REGULAR. CALL LIGHT IN REACH.
--- NOTE | 2019-01-30 06:00 | NUR ---
SLEEPING INB ED, AWAKENS EASILY. NO C/O AT THIS TIME. CALL LIGHT IN REACH.
--- NOTE | 2019-01-30 06:40 | NUR ---
PT VOMITED SMALL AMOUNT, MEDICATED WITH ZOFRAN IV PER PRN ORDER, SEE EMAR. CALL LIGHT IN REACH.
--- NOTE | 2019-01-30 06:45 | NUR ---
C/O LEFT STUMP AREA PAIN, RATES PAIN 8 ON PAIN SCALE 0-10. MEDICATED WITH OXYCODOE PO PER PRN ORDER, SEE EMAR. CALL LIGHT IN REACH.
[2019-01-30 07:39] LABS: BASO % 0.3 % (0.0-1.0); EOS # 0.1 10*3/uL (0.0-0.4); EOS % 1.4 % (1.0-4.0); HEMOGLOBIN 12.2 g/dl (14.0-18.0); LYMPH # 0.7 10*3/uL (1.3-4.4); LYMPH % 7.1 % (27.0-41.0); MEAN CELL VOLUME 85.5 fl (80.0-94.0); MEAN CORPUSCULAR HGB 26.1 pg (27.0-31.0); MEAN CORPUSCULAR HGB CONC 30.5 g/dl (33.0-37.0); MONO # 1.4 10*3/uL (0.1-1.0); MONO % 13.8 % (3.0-9.0); NEUT # 7.9 10*3/uL (2.3-7.9); PLATELET COUNT AUTOMATED 143 10*3/uL (130-400); RED BLOOD COUNT 4.68 10*6/uL (4.50-5.90); RED CELL DISTRI WIDTH 15.9 % (0-14.5); WHITE BLOOD COUNT 10.2 10*3/uL (4.8-10.8)
[2019-01-30 07:56] LABS: CHLORIDE 96 mmol/L (98-107); POTASSIUM 4.9 mmol/L (3.5-5.1); SODIUM 128 mmol/L (136-145)
[2019-01-30 08:00] LABS: BUN 14 mg/dl (7-24); CREATININE 0.67 mg/dL (0.70-1.30)
--- NOTE | 2019-01-30 08:30 | NUR ---
BLOOD PRESSURE LOW. DR GILMAN ON FLOOR AND NOTIFIED. WILL MONITOR
--- NOTE | 2019-01-30 08:32 | NUR ---
PT STATES OXYCODONE WASN'T MUCH EFF AND ASKED FOR SOMETHING ELSE FOR PAIN. PT BP LOW AND PER DR GILMAN HOLD PAIN MEDS FOR NOW. WILL CONT TO MONITOR.
--- NOTE | 2019-01-30 09:53 | NUR ---
DR GILMAN NOTIFIED OF RECHECK BP, NO NEW ORDERS. WILL MONITOR.
--- NOTE | 2019-01-30 11:00 | NUR ---
DR GILMAN NOTIFIED PT BP REMAINED THE SAME AFTER SECOND BOLUS. ALSO PT LETHARGIC, PULSE OX 701% AND 4L APPLIED BRINGING UP TO 97%, PT STATES HE FEELS DROWSY SINCE THIS MORNING. DR GILMAN NOTIFIED
[2019-01-30 11:46] LABS: ABG BASE EXCESS -0.7 mmol/L (-2.0-2.0); ABG HCO3 27.2 mmol/l (22-26); ABG O2 SATURATION 93.7 % (95-97); ARTERIAL BLOOD GAS PCO2 64.6 mmHg (35-45); ARTERIAL BLOOD GAS PH 7.249 (7.35-7.45); ARTERIAL BLOOD GAS PO2 80.5 mmHg (80-90)
--- NOTE | 2019-01-30 12:27 | NUR ---
PHYSICIAN WAS NOTIFIED OF DR. GUS JENSEN. RESPONSE OF NOTIFICATION WAS OK I WILL SEE HIM. SPENSER SANTIZO
--- NOTE | 2019-01-30 12:56 | NUR ---
PT REFUSED BI-PAP. DR GUS GRACIA.
[2019-01-30 17:52] LABS: BILIRUBIN NEGATIVE (NEGATIVE); BLOOD NEGATIVE (NEGATIVE); CLARITY CLEAR (CLEAR); COLOR YELLOW (YELLOW); GLUCOSE NEGATIVE (NEGATIVE); KETONE NEGATIVE (NEGATIVE); LEUKO ESTERASE NEGATIVE (NEGATIVE); NITRITE NEGATIVE (NEGATIVE); SPECIFIC GRAVITY >= 1.030 (1.005-1.030); UROBILINOGEN 0.2 E.U./dl (0.2-1.0)
[2019-01-30 18:02] LABS: BACTERIA 2+; EPITHELIAL CELLS 0-2; RBC 0-2 rbc/hpf (0-2)
--- NOTE | 2019-01-30 20:30 | NUR ---
PT SLEEPING IN BED, AWAKENS. PT DROWSY, IVF INFUSING WITH NO PROBLEM. CALL LIGHT IN REACH. BP 120/77, HR-50-60'S, PULSE OX 95-99% 2LITERS. CALL LIGHT IN REACH.
--- NOTE | 2019-01-30 22:49 | NUR ---
PATIENT REFUSING BIPAP
[2019-01-31] VITALS: BP 129/72
--- NOTE | 2019-01-31 00:15 | NUR ---
RESTING IN BED. NO C/O AT THIS TIME. IVF INFUSING WITH NO PROBLEM. CALL LIGHT IN REACH. SEE SHIFT ASSESSMENT.
[2019-01-31 05:25] VITALS: BP 123/85
--- NOTE | 2019-01-31 05:25 | NUR ---
C/O LEFT STUMP AREA PAIN, RATES PAIN 10 ON PAIN SCALE 0=10. MEDICATED WITH OXYCODONE PO PER PRNO ODER, SEE EMAR. CALL LIGHT IN REACH.
[2019-01-31 06:22] LABS: BASO % 0.4 % (0.0-1.0); EOS # 0.2 10*3/uL (0.0-0.4); EOS % 2.4 % (1.0-4.0); HEMATOCRIT 36.5 % (42.0-52.0); HEMOGLOBIN 11.1 g/dl (14.0-18.0); LYMPH # 0.8 10*3/uL (1.3-4.4); LYMPH % 10.2 % (27.0-41.0); MEAN CELL VOLUME 86.7 fl (80.0-94.0); MEAN CORPUSCULAR HGB 26.4 pg (27.0-31.0); MEAN CORPUSCULAR HGB CONC 30.4 g/dl (33.0-37.0); MEAN PLATELET VOLUME 10.9 fl (9.6-12.3); MONO # 1.4 10*3/uL (0.1-1.0); MONO % 17.9 % (3.0-9.0); NEUT # 5.4 10*3/uL (2.3-7.9); NEUT % 68.7 % (47.0-73.0); PLATELET COUNT AUTOMATED 171 10*3/uL (130-400); RED BLOOD COUNT 4.21 10*6/uL (4.50-5.90); RED CELL DISTRI WIDTH 15.9 % (0-14.5); WHITE BLOOD COUNT 7.9 10*3/uL (4.8-10.8)
[2019-01-31 07:01] LABS: BUN 12 mg/dl (7-24); CHLORIDE 96 mmol/L (98-107); CREATININE 0.46 mg/dL (0.70-1.30); POTASSIUM 4.3 mmol/L (3.5-5.1); SODIUM 132 mmol/L (136-145)
[2019-01-31 08:00] VITALS: BP 112/74
--- NOTE | 2019-01-31 11:09 | NUR ---
PER DR GILMAN GIVE OXY NOW AND APPLY FENTANYL PATCH WHEN AVAILABLE. PT C/O PAIN OF 10. OXY GIVEN AT THIS TIME. WILL CONT TO MONITOR. CALL LIGHT IN REACH.
[2019-01-31 11:42] VITALS: BP 107/91
--- NOTE | 2019-01-31 14:00 | NUR ---
PER PT PAIN NEVER GOES AWAY AND IS ALWAYS A 10/10. DR GRACIA.
--- NOTE | 2019-01-31 14:38 | NUR ---
PT C/O DIFFICULTY VOIDING AND THAT HIS GENITALS WERE SWOLLEN. BLADDER SCAN SHOWED 183CC POST VOID. DR GILMAN NOTIFIED.
--- NOTE | 2019-01-31 15:02 | NUR ---
OXYCODONE GIVEN AT THIS TIME FOR C/O PAIN TO LEFT LIMB OF 02/18. WILL CONT TO MONITOR. CALL LIGHT IN REACH.
[2019-01-31 15:48] VITALS: BP 123/78
--- NOTE | 2019-01-31 18:44 | NUR ---
C/O PAIN TO LEFT LOWER LIMB OF 02/18. OXYCODONE GIVEN AT THIS TIME. WILL CONT TO MONITOR. CALL LIGHT IN REACH.
[2019-01-31 20:00] VITALS: BP 125/74
--- NOTE | 2019-01-31 20:00 | NUR ---
CALLED DR VARGHESE TO LET HIM KNOW THAT THE PATIENT IS REQUESTING ANOTHER DOSE OF LASIX AND A "PAIN SHOT". STATES THAT THE PAIN PILLS ARE NOT EFFECTIVE FOR HIM. DR VARGHESE SAID HE WILL LOOK AT CHART AND DECIDE IF HE WANTS TO PUT SOMETHING IN.
--- NOTE | 2019-01-31 23:43 | NUR ---
24 HR chart check completed.
[2019-02-01] VITALS: BP 112/86
--- NOTE | 2019-02-01 00:35 | NUR ---
PATIENT RECEIVED OXYCODONE FOR PAIN RATED 9/10 IN LEG. PATIENT IS VERY UNHAPPY THAT THE DOCTOR HAS NOT PRESCRIBED A "PAIN SHOT" FOR HIM. HE IS YELLING OUT ABOUT HOW HE "WISHES THEY COULD BE IN HIS SHOES. FUCKING ASSHOLES."
[2019-02-01 07:28] LABS: BASO % 0.6 % (0.0-1.0); EOS # 0.2 10*3/uL (0.0-0.4); EOS % 3.4 % (1.0-4.0); HEMATOCRIT 37.7 % (42.0-52.0); HEMOGLOBIN 11.8 g/dl (14.0-18.0); LYMPH # 0.9 10*3/uL (1.3-4.4); LYMPH % 12.3 % (27.0-41.0); MEAN CELL VOLUME 85.3 fl (80.0-94.0); MEAN CORPUSCULAR HGB 26.7 pg (27.0-31.0); MEAN CORPUSCULAR HGB CONC 31.3 g/dl (33.0-37.0); MEAN PLATELET VOLUME 10.4 fl (9.6-12.3); MONO # 1.4 10*3/uL (0.1-1.0); NEUT # 4.6 10*3/uL (2.3-7.9); NEUT % 64.3 % (47.0-73.0); RED BLOOD COUNT 4.42 10*6/uL (4.50-5.90); RED CELL DISTRI WIDTH 15.5 % (0-14.5); WHITE BLOOD COUNT 7.1 10*3/uL (4.8-10.8)
[2019-02-01 07:30] LABS: PLATELET COUNT AUTOMATED 225 10*3/uL (130-400)
[2019-02-01 07:33] LABS: BUN 12 mg/dl (7-24); CHLORIDE 92 mmol/L (98-107); CREATININE 0.66 mg/dL (0.70-1.30); SODIUM 133 mmol/L (136-145)
--- NOTE | 2019-02-01 07:37 | NUR ---
[facility] denied, information for peer to peer sent to hospitalists office.
--- NOTE | 2019-02-01 07:40 | NUR ---
PT RESTING IN BED. C/O LEFT STUMP PAIN, RATES PAIN 8 ON PAIN SCALE 0-10. MEDICATED WITH OXYCODONE PO PER PRN ORDER, SEE EMAR. CALL LIGHT IN REACH. SEE SHIFT ASSESSMENT.
[2019-02-01 08:00] VITALS: BP 116/89
--- NOTE | 2019-02-01 08:30 | NUR ---
RESTING IN BED. STATES PAIN MEDICATIONS HELP SOME. CALL LIGHT IN REACH.
--- NOTE | 2019-02-01 09:53 | NUR ---
DURAGESIC PATCH REMOVED AND NEW DOSE PATCH APPLIED. CALL LIGHT IN REACH.
--- NOTE | 2019-02-01 09:53 | NUR ---
Follow up with Dr. Corado in wound care clinic on 02/04/19 at 9:00am, call [phone] with any concerns
--- NOTE | 2019-02-01 11:00 | NUR ---
PT SLEEPING IN BED. RESP-EASY AND REGULAR. MEDICATIONS SEEMS TO BE EFFECTIVE. CALL LIGHT IN REACH.
--- NOTE | 2019-02-01 11:10 | NUR ---
Patient agreeable to snf placement and asked for the [place]. Contacted facility and faxed initial referral.
[2019-02-01 11:40] VITALS: BP 120/88
--- NOTE | 2019-02-01 12:21 | NUR ---
PT SLEEPING IN BED. RESP-EASY AND REGULAR. CALL LIGHT IN REACH.
--- NOTE | 2019-02-01 15:19 | NUR ---
PT HAD A SMALL EMESIS, MEDICATED WITH ZOFRAN IV PER PRN ORDER, SEE EMAR. CALL LIGHT IN REACH.
[2019-02-01 15:52] VITALS: BP 116/83
--- NOTE | 2019-02-01 15:53 | NUR ---
CALLED DR. LOZANO WITH PICC LINE PLACEMENT. OK TO USE PER HIM.
--- NOTE | 2019-02-01 16:15 | NUR ---
PT SITTING UP IN BED. RESP-EASY AND REGULAR. NO C/O AT THIS TIME. NO CO AT THIS TIME. CALL LIGHT IN REACH.
[2019-02-01 20:00] VITALS: BP 96/56
--- NOTE | 2019-02-01 20:57 | NUR ---
PATIENT FOUND LETHARGIC, HARD TO AROUSE. PULSE OX IN THE 50'S, HYPOTENSIVE. THIS NURSE RESPONDED TO ROOM. STERNAL RUBBED PATIENT, APPLIED 6LNC, AND RECHECKED MANUAL BP. BP 96/50, PULSE OX CAME UP TO HIGH 80'S ON 6LNC. DR GILMAN NOTIFIED OF PATIENT'S STATUS. PATIENT PLACED ON NONREBREATHER MASK AND RESPIRATORY THERAPY CALLED. PATIENT'S FENTANYL PATCH HAS BEEN REMOVED AND ARM CLEANED. PATIENT IS MORE AROUSABLE, AND BECOMING MORE ALERT AND ORIENTED. IS AWARE OF WHERE HE IS. PATIENT'S O2 SATS STABLE AFTER MASK APPLIED. RESP THERAPY ADJUSTED O2. CURRENTLY NO S/S OF IMMEDIATE DISTRESS AFTER INTERVENTIONS NOTED ABOVE. CALL LIGHT IN REACH. FREQUENT ROUNDING IN PLACE.
--- NOTE | 2019-02-01 21:03 | NUR ---
PATIENT NOW ON VENTURI MASK PER RESPIRATORY. PULSE OX 97-100%
--- NOTE | 2019-02-01 22:07 | NUR ---
PATIENT REMAINS LETHARGIC, HOWEVER HIS O2 SAT IS STABLE ON 50% VENTURI. CALL LIGHT IN REACH. FREQ ROUNDING IMPLEMENTED.
[2019-02-02 00:41] LABS: HEMATOCRIT 37.8 % (42.0-52.0); HEMOGLOBIN 11.6 g/dl (14.0-18.0); MEAN CELL VOLUME 85.3 fl (80.0-94.0); MEAN CORPUSCULAR HGB 26.2 pg (27.0-31.0); MEAN CORPUSCULAR HGB CONC 30.7 g/dl (33.0-37.0); MEAN PLATELET VOLUME 10.8 fl (9.6-12.3); PLATELET COUNT AUTOMATED 179 10*3/uL (130-400); RED BLOOD COUNT 4.43 10*6/uL (4.50-5.90); RED CELL DISTRI WIDTH 15.6 % (0-14.5); WHITE BLOOD COUNT 14.2 10*3/uL (4.8-10.8)
[2019-02-02 00:53] LABS: ABG BASE EXCESS 4.3 mmol/L (-2.0-2.0); ABG O2 SATURATION 87.2 % (95-97); ARTERIAL BLOOD GAS PH 7.241 (7.35-7.45); ARTERIAL BLOOD GAS PO2 62.8 mmHg (80-90)
[2019-02-02 00:55] LABS: ARTERIAL BLOOD GAS PCO2 81.2 mmHg (35-45)
[2019-02-02 00:56] LABS: ALBUMIN 2.8 gm/dl (3.1-4.5); ALKALINE PHOSPHATASE 302 U/L (45-117); BUN 16 mg/dl (7-24); CHLORIDE 91 mmol/L (98-107); CREATININE 0.59 mg/dL (0.70-1.30); POTASSIUM 4.8 mmol/L (3.5-5.1); SGOT/AST 18 IU/L (3-35); SGPT/ALT 21 U/L (12-78); SODIUM 129 mmol/L (136-145); TOTAL PROTEIN 6.7 gm/dL (6.4-8.2)
[2019-02-02 00:58] LABS: TOTAL CELLS COUNTED 100 #CELLS
[2019-02-02 00:59] LABS: PLATELET SUFFICIENCY NORMAL (NORMAL)
--- NOTE | 2019-02-02 01:06 | NUR ---
CALLED CRITICAL CO2 RESULT TO DR WEBER. SAYS TO MOVE PATIENT TO UNIT AND PLACE ON BIPAP 24/02.
--- NOTE | 2019-02-02 01:32 | NUR ---
PT. RECEIVED FROM 4E INPATIENT. TEMP 98.0-97-10, PULSE OX 97% ON 50% VENTURI MASK. PT. VERY LETHARGIC, WILL WAKE UP WITH STERNAL RUB. PLACED ON BIPAP PER DR. WEBER'S ORDERS. PICC IN RIGHT UPPER ARM. HEP LOCK IN L HAND ALSO NOTED. SOLOMON MILLER RN
[2019-02-02 01:35] VITALS: BP 104/76
--- NOTE | 2019-02-02 01:35 | NUR ---
PATIENT MOVED TO ICCU-1. REPORT GIVEN TO RN, SOLOMON MILLER. PLACED ON MONITOR, PULSE OX. VITALS STABLE.
[2019-02-02 04:00] VITALS: BP 94/44
--- NOTE | 2019-02-02 05:30 | NUR ---
PT. PUPILS PINPOINT, DR'S AWARE. NARCAN ORDERED. PT WAS BEING PREPARED TO RECEIVE NARCAN PT. AWOKE, NARCAN GIVEN. PT. NAUSEATED, GIVEN ZOFRAN ORDERED FOR NAUSEA. THANKS, SOLOMON
[2019-02-02 06:16] LABS: ABG BASE EXCESS 6.1 mmol/L (-2.0-2.0); ABG O2 SATURATION 73.2 % (95-97); ARTERIAL BLOOD GAS PCO2 61.1 mmHg (35-45); ARTERIAL BLOOD GAS PH 7.35 (7.35-7.45); ARTERIAL BLOOD GAS PO2 40.6 mmHg (80-90)
--- NOTE | 2019-02-02 06:24 | NUR ---
DR. WEBER NOTIFIED OF REPEAT ABG RESULTS. SOLOMON MILLER RN
[2019-02-02 08:00] VITALS: BP 94/66
--- NOTE | 2019-02-02 08:01 | NUR ---
DR TRAN ROUNDED P PT DENIES NAUSEA DESPITE EMESIS OF @ 200cc FOOD. MILK GIVEN PER DR TRAN
--- NOTE | 2019-02-02 10:20 | NUR ---
SPEECH PATHOLOGY Modified barium swallow completed as per orders to rule out aspiration. Medical hx is significant for amputation stump infection, cellulitis, OR, acute respiratory failure with hypoxia, GERD, COPD, A-fib. Patient receives a regular diet and thin liquid. He was assessed with solid foods and thin liquid and displayed safe oral and pharyngeal swallowing for all given consistencies. Recommend he remain on present diet with use of universal safe swallow precautions. No follow up therapy is recommended. Patient's nurse was present throughout the study and verbalized understanding of information provided. Patient was educated on results and zulay. and verbalized understanding. Dictated report to follow. Thank you for this referral. ROBERT HERNÁNDEZ MSCCC-CIVIL PROJECT ENGINEER
--- NOTE | 2019-02-02 10:23 | NUR ---
RETURNED FROM RDIOLOGY AFTER BARIUM SWALLOW
[2019-02-02 12:00] VITALS: BP 161/76; BP 95/68
--- NOTE | 2019-02-02 12:05 | NUR ---
PT PLACED ON BIPAP FOR 2 HRS. PT SPO2 97% , HR 91, RR 11
--- NOTE | 2019-02-02 13:20 | NUR ---
PATIENT REMAINS ON THE BIPAP
--- NOTE | 2019-02-02 15:06 | NUR ---
PT NOT ON BIPAP AT THIS TIME. RN TOOK PT OFF AT 145PM
[2019-02-02 16:00] VITALS: BP 105/71
[2019-02-02 20:00] VITALS: BP 105/78
--- NOTE | 2019-02-02 20:04 | NUR ---
PT REFUSED BIPAP AT THIS TIME PT IN NO DISTRESS
--- NOTE | 2019-02-02 21:09 | NUR ---
PT DENIES NEED FOR PAIN MEDICATION AT THIS TIME.
[2019-02-03] VITALS: BP 100/73
--- NOTE | 2019-02-03 00:37 | NUR ---
02/02/19 22;55 PT REFUSING TO WEAR BiPAP OVERNIGHT. EXPLAINED THE MD ORDER AND BENEFIT OF WEARING BiPAP BUT HE STILL REFUSES TO WEAR IT.
--- NOTE | 2019-02-03 03:07 | NUR ---
SLEEPING WITH EVEN, UNLABORED RESPIRATIONS.
[2019-02-03 04:00] VITALS: BP 102/77
[2019-02-03 07:57] LABS: BASO % 0.5 % (0.0-1.0); EOS # 0.2 10*3/uL (0.0-0.4); EOS % 2.4 % (1.0-4.0); HEMATOCRIT 34.6 % (42.0-52.0); HEMOGLOBIN 10.5 g/dl (14.0-18.0); LYMPH # 0.7 10*3/uL (1.3-4.4); LYMPH % 8.6 % (27.0-41.0); MEAN CELL VOLUME 88.3 fl (80.0-94.0); MEAN CORPUSCULAR HGB 26.8 pg (27.0-31.0); MEAN CORPUSCULAR HGB CONC 30.3 g/dl (33.0-37.0); MEAN PLATELET VOLUME 11.5 fl (9.6-12.3); MONO # 1.2 10*3/uL (0.1-1.0); MONO % 14.5 % (3.0-9.0); NEUT # 6.3 10*3/uL (2.3-7.9); NEUT % 73.5 % (47.0-73.0); PLATELET COUNT AUTOMATED 140 10*3/uL (130-400); RED BLOOD COUNT 3.92 10*6/uL (4.50-5.90); RED CELL DISTRI WIDTH 16.3 % (0-14.5); WHITE BLOOD COUNT 8.5 10*3/uL (4.8-10.8)
[2019-02-03 08:00] VITALS: BP 102/72
[2019-02-03 08:28] LABS: BUN 13 mg/dl (7-24); CHLORIDE 95 mmol/L (98-107); CREATININE 0.58 mg/dL (0.70-1.30); POTASSIUM 4.3 mmol/L (3.5-5.1); SODIUM 134 mmol/L (136-145)
--- NOTE | 2019-02-03 09:25 | NUR ---
DR WEBER AND THEN DR TRAN IN TO SEE PT. DR TRAN UPDATED PT ON HIS CONDITION AND PLAN OF CARE.
--- NOTE | 2019-02-03 10:50 | NUR ---
[facility] called and stated they are unable to accept this patient as he left AMA the last time he was at their facility.
--- NOTE | 2019-02-03 11:06 | NUR ---
PHYSICAL THERAPY Physical therapy evaluation complete, ICCU. Full evaluation/details to follow. Moderate complexity PT evaluation (89101) per chart review and evaluation. PT to progress transfers, gait, safety per POC. Recommend SNF at discharge. Thank you. Idania Yang,PT,DPT
--- NOTE | 2019-02-03 11:11 | NUR ---
Referral faxed to [facility] and Thomas castillo. [facility] does not have an isolation room. Thomas castillo is reviewing.
--- NOTE | 2019-02-03 11:32 | NUR ---
PHYSICAL THERAPY,CASE MGMT,RESPIRATORY ASSISTANT IN TO SEE PT. PHYSICAL THERAPY SUGGESTED SNF FOR PT.
[2019-02-03 12:00] VITALS: BP 117/94
--- NOTE | 2019-02-03 12:29 | NUR ---
Occupational therapy orders received and OT eval and POC completed in full in the ICCU. Patient precautions include L LE AKA, wound vac, fall risk, ww use, IV lines, and 3LO2. Per OT eval and POC, OT recommends SNF. Patient would benefit from continued OT treatment to maximize independence in ADLs and functional transfers/mobility. Thank you for the referral. Francia Casas, OTR/L
--- NOTE | 2019-02-03 12:41 | NUR ---
STAT CXR TAKEN PER ORDER. ABG TO BE DRAWN SHORTLY.
[2019-02-03 13:17] LABS: ABG BASE EXCESS 8.9 mmol/L (-2.0-2.0); ABG HCO3 34.8 mmol/l (22-26); ARTERIAL BLOOD GAS PH 7.409 (7.35-7.45); ARTERIAL BLOOD GAS PO2 77.1 mmHg (80-90)
--- NOTE | 2019-02-03 14:15 | NUR ---
DR WEBER UPDATED ON ABG AND CXR RESULTS.
--- NOTE | 2019-02-03 14:25 | NUR ---
I wound vac form placed in chart as per Dr. Renner's request for Dr. Corado to complete when Dr. Corado makes rounds later today.
--- NOTE | 2019-02-03 15:00 | NUR ---
ASSUMED CARE FOR THIS PT AT THIS TIME. WOUND VAC INTACT. PT DENIES PAIN. CALL LIGHT IN REACH.
--- NOTE | 2019-02-03 15:13 | NUR ---
PT TO 5E VIA WC. PT REPORT GIVEN TO RECEIVING NURSE.
--- NOTE | 2019-02-03 15:18 | NUR ---
REPORT GIVEN TO GENARO LUI.
[2019-02-03 16:00] VITALS: BP 114/75
[2019-02-03 20:00] VITALS: BP 127/95
--- NOTE | 2019-02-03 20:21 | NUR ---
ASSISTED DR. JOHNSON TO CHANGE WOUND VAC AT THIS TIME. PT PREMEDICATED W/4MG MORPHINE. SEAL OBTAINED. VAC SUCTIONING CONTINUOUSLY AT 125MMHG. PT TOLERATED WELL.
--- NOTE | 2019-02-03 20:50 | NUR ---
MORPHINE 4MG IV ADMINISTERED PRESCRIBED POST WOUND VAC CHANGE FOR PAIN RATED 10/10 ON 0/10 OF LEFT STUMP. WILL MONITOR FOR EFFECTIVENESS.
[2019-02-04] VITALS: BP 121/92
--- NOTE | 2019-02-04 02:12 | NUR ---
Patient resting quietly with no c/o discomfort. Respirations easy and regular. Vital signs stable. No overt distress. ASHLEY LANCASTER
--- NOTE | 2019-02-04 05:25 | NUR ---
RYAN JOHN [id number] Please refer to the physician's history and physical for past medical history, comorbid conditions, and allergies. Diagnosis: CELLULITIS OF LEFT LOWER EXTREMITY Alexander Score: 17,AT RISK WOUND DESCRIPTIONS: Wound Vac intact to left stump at 125mmHg continous low intensity. No leak at time of assessment. No complaints at time of assessment. Nurse caring for patient stated wound vac was changed yesterday. Surface the patient is resting on: Isoflex SKIN PREVENTION RECOMMENDATION: 1. Pressure redistribution support surface as appropriate 2. Elevate heels 3. Remove boots/TEDS every shift and reapply 4. Head of bed 30 degrees as tolerated 5. Assess nutrition and hydration 6. Manage moisture 7. Avoid the use of containment devices while in bed 8. Use absorptive products on surfaces limit layers of linens on bed 9. Turn and reposition every 1-2 hours in bed and every 1 hour in chair as tolerated 10. Weight shifts every 15 minutes while up in chair 11. Offloading with pillows or device to keep heels elevated off bed 12. Monitor skin at least every shift 13. Inspect under medical devices twice a day WOUND TREATMENT RECOMMENDATIONS: Continue wound vac order per Dr. Corado.
[2019-02-04 07:36] LABS: BASO % 0.4 % (0.0-1.0); EOS # 0.3 10*3/uL (0.0-0.4); HEMATOCRIT 35.9 % (42.0-52.0); HEMOGLOBIN 11.4 g/dl (14.0-18.0); LYMPH # 0.9 10*3/uL (1.3-4.4); LYMPH % 8.9 % (27.0-41.0); MEAN CORPUSCULAR HGB 26.3 pg (27.0-31.0); MEAN CORPUSCULAR HGB CONC 31.8 g/dl (33.0-37.0); MEAN PLATELET VOLUME 8.8 fl (9.6-12.3); MONO # 1.5 10*3/uL (0.1-1.0); MONO % 15.5 % (3.0-9.0); NEUT # 7.1 10*3/uL (2.3-7.9); NEUT % 71.7 % (47.0-73.0); RED BLOOD COUNT 4.34 10*6/uL (4.50-5.90); RED CELL DISTRI WIDTH 15.7 % (0-14.5)
[2019-02-04 07:43] LABS: BUN 9 mg/dl (7-24); CHLORIDE 99 mmol/L (98-107); CREATININE 0.65 mg/dL (0.70-1.30); POTASSIUM 3.7 mmol/L (3.5-5.1); SODIUM 138 mmol/L (136-145)
[2019-02-04 07:53] LABS: BASOPHILS 1 % (0-1); TOTAL CELLS COUNTED 100 #CELLS
[2019-02-04 07:54] LABS: PLATELET SUFFICIENCY NORMAL (NORMAL)
[2019-02-04 07:55] LABS: MEAN CELL VOLUME 82.7 fl (80.0-94.0); PLATELET COUNT AUTOMATED 369 10*3/uL (130-400)
--- NOTE | 2019-02-04 09:00 | NUR ---
case management visits with patient, again discussed the benefits of a SNF vs returning home, patient stated he would be returning home, case management contacted [facility] and had them check cost of patient's iv antibiotics for home, patient will have a $0 copay. also spoke to Safia from [facility] regarding a wound vac for patient at home, all of patient's information given to Safia and information also faxed to [facility], reference number for this is [id number], Safia stated that someone from [facility] will contact case management within the next two hours
--- NOTE | 2019-02-04 10:13 | NUR ---
PT REFUSING TO ALLOW THIS NURSE TO ADJUST HEART MONITOR LEADS, PER PT " LEAVE ME ALONE I WANT TO SLEEP" TRIED TO EXPLAIN TO PATIENT IMPORTANCE OF HEART MONITORING PT ASKED ME TO LEAVE HIS ROOM
--- NOTE | 2019-02-04 11:02 | NUR ---
case management received a call from pharmacist from [facility] regarding patient's recent non compliance with administering iv antibiotics, she stated patient had iv vancomycin in December of this year and did not administer the doses, pharmacist suggested patient be on a medication he would only have to administer once a day, she stated she would contact Dr Bernal regarding this.
--- NOTE | 2019-02-04 11:09 | NUR ---
case mangement spoke to Dr Bernal, a new script for daptomycin was received and faxed to [facility]
--- NOTE | 2019-02-04 11:25 | NUR ---
PHYSICAL THERAPY Patient seen this am 1:1 for therapy visit and was supine in bed upon therapist arrival. Patient identified by name / and presents with L LE wound vac. Patient voices no c/o's pain and transfers supine to sit EOB SBA x 1. Patient completes sit to stand transfer with use of wh walker, CGA and ambulates around bed, 20'x 1, CGA to bedside chair, demonstrating 3 pt gait pattern secondary to L AKA. Patient needed v/c to improve safe gait velociity and remained in bedside chair with call light, tray table, cell phone and body alarm for safety. Will continue per POC as tolerated, total treatment time 13 minutes. Thang Russell, INSURANCE ACCOUNT ASSISTANT
[2019-02-04 12:00] VITALS: BP 126/96
--- NOTE | 2019-02-04 12:00 | NUR ---
OT NOTE Pt was seen this A.M. 1:1 for 15 minute OT session. Upon arrival pt was supine in bed. Pt identified by name and and had no complaints at this time. Pt presented to therapy with wound vac on LLE which remained on throughout entire session. Pt transferred supine to sit EOB with SBA. Pt completed sit to stand from bed level with Alicia and use of w/w for UE support. Functional mobility completed around the room with CGA and use of w/w. Pt had bouts of unsteady gait that were able to be self corrected. Pt then transferred into the recliner with CGA. There he was left with call light in hand, trya table in place, and body alarm activated for safety. Continue with rec D/C plan to SNF. NIKOS Cornell/Echo
--- NOTE | 2019-02-04 14:11 | NUR ---
case management received a call from Xavi from [facility], patient's wound vac will be delivered to the hospital between 6-7pm, hospitalist nurse notified
[2019-02-04] MEDS ORDERED: ELIQUIS5 M1 PO (14:30)
[2019-02-04] MEDS ORDERED: VITAMIN D32000 UNI1 PO (14:30)
[2019-02-04 16:00] VITALS: BP 115/93
--- NOTE | 2019-02-04 18:49 | NUR ---
Discharge instructions reviewed with patient/family. Patient receptive and verbalizes understanding. Follow-up care arranged. Written instructions given to patient/family. PATRICIA JACINTO
--- NOTE | 2019-02-05 07:42 | NUR ---
OT CO-SIGN I APPROVE OF THE NOTES WRITTEN ABOVE. THANK YOU. EAN PATRICK, OTR/L
--- NOTE | 2019-02-05 07:47 | NUR ---
PHYSICAL THERAPY CO-SIGN I approve of the Physical Therapy notes written above. KIMBERLEY TIRADO PT,DPT
== END 2019-02-04 18:49 | disposition home or self-care (01) | DRG 309 ==
LOC: ED 10:23 → EDHOLD 12:40 → 4E 12:40 → ICCU 02-02 01:24 → 5E 02-03 14:20
PROVIDERS: Emergency Medicine; Family Medicine; Hospitalist; Internal Medicine; Internal Medicine Critical Care Medicine; ADMIT Internal Medicine
PROC: 0Y9J3ZZ Drainage of Left Lower Leg, Percutaneous Approach (ICD-10-PCS; principal; 2019-01-28)
PROC: 0QBC0ZZ Excision of Left Lower Femur, Open Approach (ICD-10-PCS; 2019-01-29)
PROC: BD1BYZZ Fluoroscopy of Mouth/Oropharynx using Other Contrast (ICD-10-PCS; 2019-02-02)
PROC: 02HV33Z Insertion of Infusion Device into Superior Vena Cava, Percutaneous Approach (ICD-10-PCS; 2019-02-02)
DX: T87.44 Infection of amputation stump, left lower extremity (principal); J96.21 Acute and chronic respiratory failure with hypoxia; J96.22 Acute and chronic respiratory failure with hypercapnia; L03.116 Cellulitis of left lower limb; E87.1 Hypo-osmolality and hyponatremia; N39.0 Urinary tract infection, site not specified; I50.22 Chronic systolic (congestive) heart failure; L02.416 Cutaneous abscess of left lower limb; J44.1 Chronic obstructive pulmonary disease with (acute) exacerbation; I42.9 Cardiomyopathy, unspecified; M86.8X6 Other osteomyelitis, lower leg; I25.10 Atherosclerotic heart disease of native coronary artery without angina pectoris; I48.91 Unspecified atrial fibrillation; E53.8 Deficiency of other specified B group vitamins; B95.62 Methicillin resistant Staphylococcus aureus infection as the cause of diseases classified elsewhere; I73.9 Peripheral vascular disease, unspecified; K21.9 Gastro-esophageal reflux disease without esophagitis; E87.8 Other disorders of electrolyte and fluid balance, not elsewhere classified; E55.9 Vitamin D deficiency, unspecified; I44.7 Left bundle-branch block, unspecified; D72.829 Elevated white blood cell count, unspecified; Y83.8 Other surgical procedures as the cause of abnormal reaction of the patient, or of later complication, without mention of misadventure at the time of the procedure; I11.0 Hypertensive heart disease with heart failure; K44.9 Diaphragmatic hernia without obstruction or gangrene; E78.5 Hyperlipidemia, unspecified; Z86.718 Personal history of other venous thrombosis and embolism; Z95.810 Presence of automatic (implantable) cardiac defibrillator; Z82.49 Family history of ischemic heart disease and other diseases of the circulatory system; Z83.3 Family history of diabetes mellitus; Z82.3 Family history of stroke; Z80.1 Family history of malignant neoplasm of trachea, bronchus and lung; Z79.82 Long term (current) use of aspirin; Z79.899 Other long term (current) drug therapy; Z88.8 Allergy status to other drugs, medicaments and biological substances; Z95.5 Presence of coronary angioplasty implant and graft; Y92.89 Other specified places as the place of occurrence of the external cause

== ENCOUNTER → 2019-02-17 | Outpatient (CLI) | payer OTHER ==
[~2019-02-17] MED LIST changes: +AMIODARONE HYD200 MG PO; +ASPIRIN ADULT L81 M1 PO; +GABAPENTIN800 MG PO; +GOOD NEIGHBOR P20 MG PO; +LIPITOR40 MG PO; +LISINOPRIL2.5 MG PO; +OXYCODONE HCL10 M1 PO; +SENNA-TIME S T1 EACH PO; +VITAMIN D32000 UNI1 PO; +WELLBUTRIN SR150 MG PO
== END | disposition home or self-care (01) ==
LOC: RESCLI 00:54
DX: F17.200 Nicotine dependence, unspecified, uncomplicated (principal); J44.1 Chronic obstructive pulmonary disease with (acute) exacerbation; I11.0 Hypertensive heart disease with heart failure; I50.22 Chronic systolic (congestive) heart failure; K21.9 Gastro-esophageal reflux disease without esophagitis; I25.10 Atherosclerotic heart disease of native coronary artery without angina pectoris; I34.0 Nonrheumatic mitral (valve) insufficiency; I07.1 Rheumatic tricuspid insufficiency; R91.1 Solitary pulmonary nodule; I82.509 Chronic embolism and thrombosis of unspecified deep veins of unspecified lower extremity; E78.5 Hyperlipidemia, unspecified; I73.9 Peripheral vascular disease, unspecified; F33.1 Major depressive disorder, recurrent, moderate; E78.2 Mixed hyperlipidemia; E55.9 Vitamin D deficiency, unspecified; G62.9 Polyneuropathy, unspecified; G54.6 Phantom limb syndrome with pain; G89.29 Other chronic pain; I48.91 Unspecified atrial fibrillation; Z79.899 Other long term (current) drug therapy

== ENCOUNTER → 2019-04-29 | Outpatient (CLI) | payer OTHER | END | disposition home or self-care (01) | LOC: RESCLI 00:50 | DX: I11.0 Hypertensive heart disease with heart failure (principal); I50.22 Chronic systolic (congestive) heart failure; F17.200 Nicotine dependence, unspecified, uncomplicated; J44.1 Chronic obstructive pulmonary disease with (acute) exacerbation; K21.9 Gastro-esophageal reflux disease without esophagitis; I25.10 Atherosclerotic heart disease of native coronary artery without angina pectoris; I34.0 Nonrheumatic mitral (valve) insufficiency; I07.1 Rheumatic tricuspid insufficiency; R91.1 Solitary pulmonary nodule; I82.509 Chronic embolism and thrombosis of unspecified deep veins of unspecified lower extremity; E78.5 Hyperlipidemia, unspecified; I70.222 Atherosclerosis of native arteries of extremities with rest pain, left leg; F33.1 Major depressive disorder, recurrent, moderate; E78.2 Mixed hyperlipidemia; E55.9 Vitamin D deficiency, unspecified; G62.9 Polyneuropathy, unspecified; G54.6 Phantom limb syndrome with pain; F10.10 Alcohol abuse, uncomplicated; G89.29 Other chronic pain; I48.91 Unspecified atrial fibrillation; G47.00 Insomnia, unspecified; Z79.899 Other long term (current) drug therapy; Z89.021 Acquired absence of right finger(s); Z88.8 Allergy status to other drugs, medicaments and biological substances ==

== ENCOUNTER 2019-06-07 17:19 | Emergency (ER) | payer OTHER ==
[~2019-06-07] VITALS: Ht 165.1 cm; Wt 65.8 kg
[2019-06-07 17:44] LABS: BASO % 0.8 % (0.0-1.0); EOS # 0.1 10*3/uL (0.0-0.4); EOS % 2.4 % (1.0-4.0); HEMATOCRIT 45.7 % (42.0-52.0); HEMOGLOBIN 14.4 g/dl (14.0-18.0); LYMPH # 1.2 10*3/uL (1.3-4.4); LYMPH % 24.8 % (27.0-41.0); MEAN CELL VOLUME 73.7 fl (80.0-94.0); MEAN CORPUSCULAR HGB 23.2 pg (27.0-31.0); MEAN CORPUSCULAR HGB CONC 31.5 g/dl (33.0-37.0); MEAN PLATELET VOLUME 9.8 fl (9.6-12.3); MONO # 0.8 10*3/uL (0.1-1.0); MONO % 16.7 % (3.0-9.0); NEUT # 2.7 10*3/uL (2.3-7.9); NEUT % 55.1 % (47.0-73.0); PLATELET COUNT AUTOMATED 227 10*3/uL (130-400); RED CELL DISTRI WIDTH 22.2 % (0-14.5)
[2019-06-07 17:55] LABS: ACT PARTIAL THROMBO TIME 27.7 SECONDS (20.0-32.1)
[2019-06-07 18:01] LABS: ALBUMIN 3.1 gm/dl (3.1-4.5); ALKALINE PHOSPHATASE 251 U/L (45-117); BUN 9 mg/dl (7-24); CHLORIDE 107 mmol/L (98-107); CREATININE 0.64 mg/dL (0.70-1.30); POTASSIUM 3.9 mmol/L (3.5-5.1); SGOT/AST 20 IU/L (3-35); SGPT/ALT 29 U/L (12-78); SODIUM 137 mmol/L (136-145)
[2019-06-07] MEDS ORDERED: DOXYCYCLINE100 M3 PO (19:28)
[2019-06-07] MEDS ORDERED: ELIQUIS5 M1 PO (19:28)
== END 2019-06-07 19:51 | disposition home or self-care (01) ==
LOC: ED 17:19
PROVIDERS: Physician Assistant
DX: L03.115 Cellulitis of right lower limb (principal); F17.200 Nicotine dependence, unspecified, uncomplicated; Z88.8 Allergy status to other drugs, medicaments and biological substances; Z79.899 Other long term (current) drug therapy; Z79.82 Long term (current) use of aspirin; Z86.718 Personal history of other venous thrombosis and embolism

== ENCOUNTER 2019-06-11 10:12 | Emergency (ER) | payer OTHER ==
[~2019-06-11] VITALS: Ht 175.2 cm; Wt 65.8 kg
== END 2019-06-11 14:32 | disposition short-term general hospital (02) ==
LOC: ED 10:12
DX: I82.431 Acute embolism and thrombosis of right popliteal vein (principal); I77.9 Disorder of arteries and arterioles, unspecified; K21.9 Gastro-esophageal reflux disease without esophagitis; I50.9 Heart failure, unspecified; I11.0 Hypertensive heart disease with heart failure; E78.5 Hyperlipidemia, unspecified; I25.10 Atherosclerotic heart disease of native coronary artery without angina pectoris; J44.9 Chronic obstructive pulmonary disease, unspecified; F17.200 Nicotine dependence, unspecified, uncomplicated; Z88.6 Allergy status to analgesic agent; Z88.8 Allergy status to other drugs, medicaments and biological substances; Z79.899 Other long term (current) drug therapy; Z79.82 Long term (current) use of aspirin; Z86.718 Personal history of other venous thrombosis and embolism

== ENCOUNTER → 2019-06-25 | Outpatient (CLI) | payer OTHER | END | disposition home or self-care (01) | LOC: RESCLI 00:25 | DX: J44.9 Chronic obstructive pulmonary disease, unspecified (principal); I48.91 Unspecified atrial fibrillation; F33.1 Major depressive disorder, recurrent, moderate; E78.5 Hyperlipidemia, unspecified; I25.10 Atherosclerotic heart disease of native coronary artery without angina pectoris; I10 Essential (primary) hypertension; Z79.899 Other long term (current) drug therapy; F17.200 Nicotine dependence, unspecified, uncomplicated; Z88.8 Allergy status to other drugs, medicaments and biological substances ==

== ENCOUNTER → 2019-11-09 | Outpatient (CLI) | payer OTHER | END | disposition home or self-care (01) | LOC: RESCLI 00:54 | DX: F33.1 Major depressive disorder, recurrent, moderate (principal); I11.0 Hypertensive heart disease with heart failure; I50.9 Heart failure, unspecified; K59.00 Constipation, unspecified; I48.91 Unspecified atrial fibrillation; I25.10 Atherosclerotic heart disease of native coronary artery without angina pectoris; E78.5 Hyperlipidemia, unspecified; J44.9 Chronic obstructive pulmonary disease, unspecified; G47.00 Insomnia, unspecified; S78.112A Complete traumatic amputation at level between left hip and knee, initial encounter; I82.409 Acute embolism and thrombosis of unspecified deep veins of unspecified lower extremity; I25.2 Old myocardial infarction; K21.9 Gastro-esophageal reflux disease without esophagitis; Z79.899 Other long term (current) drug therapy; Z79.82 Long term (current) use of aspirin; Z95.828 Presence of other vascular implants and grafts; Z98.890 Other specified postprocedural states; Z88.8 Allergy status to other drugs, medicaments and biological substances; X58.XXXA Exposure to other specified factors, initial encounter; Y93.89 Activity, other specified; Y92.89 Other specified places as the place of occurrence of the external cause; Y99.8 Other external cause status ==

== ENCOUNTER → 2019-11-15 | Outpatient (CLI) | payer OTHER ==
[2019-11-15 14:27] LABS: BUN 17 mg/dl (7-24); CHLORIDE 105 mmol/L (98-107); CREATININE 0.81 mg/dL (0.70-1.30); POTASSIUM 4.1 mmol/L (3.5-5.1); SODIUM 136 mmol/L (136-145)
== END | disposition home or self-care (01) ==
LOC: LAB 13:41
PROVIDERS: Surgery
DX: M86.252 Subacute osteomyelitis, left femur (principal)

== ENCOUNTER → 2019-11-22 | Outpatient (CLI) | payer OTHER ==
[2019-11-22 15:49] LABS: BASO # 0.1 10*3/uL (0.0-0.1); EOS # 0.1 10*3/uL (0.0-0.4); EOS % 2.9 % (1.0-4.0); HEMATOCRIT 50.8 % (42.0-52.0); LYMPH # 1.5 10*3/uL (1.3-4.4); LYMPH % 30.9 % (27.0-41.0); MEAN CELL VOLUME 83.1 fl (80.0-94.0); MEAN CORPUSCULAR HGB 26.4 pg (27.0-31.0); MEAN CORPUSCULAR HGB CONC 31.7 g/dl (33.0-37.0); MEAN PLATELET VOLUME 9.5 fl (9.6-12.3); MONO # 0.8 10*3/uL (0.1-1.0); MONO % 16.3 % (3.0-9.0); NEUT # 2.4 10*3/uL (2.3-7.9); NEUT % 48.7 % (47.0-73.0); PLATELET COUNT AUTOMATED 163 10*3/uL (130-400); RED BLOOD COUNT 6.11 10*6/uL (4.50-5.90); RED CELL DISTRI WIDTH 18.8 % (0-14.5); WHITE BLOOD COUNT 4.9 10*3/uL (4.8-10.8)
[2019-11-22 16:20] LABS: BUN 23 mg/dl (7-24); CHLORIDE 107 mmol/L (98-107); CREATININE 0.74 mg/dL (0.70-1.30); POTASSIUM 4.1 mmol/L (3.5-5.1); SODIUM 136 mmol/L (136-145)
== END | disposition home or self-care (01) ==
LOC: LAB 15:29
PROVIDERS: Surgery
DX: Z01.818 Encounter for other preprocedural examination (principal)

== ENCOUNTER → 2019-11-23 | Outpatient (CLI) | payer OTHER | END | disposition home or self-care (01) | LOC: CARD 00:19 | DX: I08.1 Rheumatic disorders of both mitral and tricuspid valves (principal); I47.2 Ventricular tachycardia ==

== ENCOUNTER 2020-01-10 16:02 | Inpatient (IN) | payer OTHER ==
[~2020-01-10] VITALS: Ht 175.2 cm; Wt 65.0 kg
[2020-01-10 16:20] VITALS: BP 136/62
[2020-01-10 16:21] LABS: BASO % 0.8 % (0.0-1.0); EOS # 0.1 10*3/uL (0.0-0.4); HEMATOCRIT 53.6 % (42.0-52.0); LYMPH # 1.6 10*3/uL (1.3-4.4); LYMPH % 31.3 % (27.0-41.0); MEAN CELL VOLUME 82.8 fl (80.0-94.0); MEAN CORPUSCULAR HGB 26.9 pg (27.0-31.0); MEAN CORPUSCULAR HGB CONC 32.5 g/dl (33.0-37.0); MEAN PLATELET VOLUME 11.8 fl (9.6-12.3); MONO # 0.6 10*3/uL (0.1-1.0); MONO % 11.1 % (3.0-9.0); NEUT # 2.7 10*3/uL (2.3-7.9); NEUT % 54.6 % (47.0-73.0); PLATELET COUNT AUTOMATED 144 10*3/uL (130-400); RED BLOOD COUNT 6.47 10*6/uL (4.50-5.90); RED CELL DISTRI WIDTH 17.7 % (0-14.5)
[2020-01-10 16:32] LABS: ACT PARTIAL THROMBO TIME 42.5 SECONDS (20.0-32.1); INTERNATIONAL NORM RATIO 1.6 (2.0-3.5)
[2020-01-10 16:42] LABS: ALBUMIN 3.9 gm/dl (3.1-4.5); ALKALINE PHOSPHATASE 113 U/L (45-117); BUN 14 mg/dl (7-24); CHLORIDE 104 mmol/L (98-107); CREATININE 1.04 mg/dL (0.70-1.30); SGOT/AST 20 IU/L (3-35); SGPT/ALT 18 U/L (12-78); SODIUM 135 mmol/L (136-145); TOTAL PROTEIN 7.9 gm/dL (6.4-8.2)
[2020-01-10 16:43] LABS: TROPONIN I < 0.015 ng/ml (<0.045)
[2020-01-10 16:44] LABS: POTASSIUM 4.5 mmol/L (3.5-5.1)
[2020-01-10 17:15] VITALS: BP 136/82
[2020-01-10 18:27] VITALS: BP 128/71
[2020-01-10] MEDS ORDERED: XARE20MG PO (18:35)
[2020-01-10 18:49] VITALS: BP 129/88
[2020-01-10] MEDS ORDERED: CLOPIDOGREL75 MG PO (19:18)
[2020-01-10] MEDS ORDERED: FUROSEMIDE20 M1 PO (19:19)
[2020-01-10] MEDS ORDERED: MELATONIN5 M7 PO (19:20)
[2020-01-10 20:00] VITALS: BP 120/85
[2020-01-11] VITALS: BP 107/50
[2020-01-11 06:05] LABS: BUN 16 mg/dl (7-24); CHLORIDE 107 mmol/L (98-107); FREE T4 1.24 ng/dl (0.76-1.46); POTASSIUM 4.2 mmol/L (3.5-5.1); SODIUM 136 mmol/L (136-145)
[2020-01-11 08:00] VITALS: BP 96/54
[2020-01-11 08:03] LABS: BASO % 0.9 % (0.0-1.0); EOS # 0.1 10*3/uL (0.0-0.4); EOS % 3.1 % (1.0-4.0); HEMATOCRIT 48.2 % (42.0-52.0); LYMPH # 1.3 10*3/uL (1.3-4.4); LYMPH % 29.5 % (27.0-41.0); MEAN CELL VOLUME 82.7 fl (80.0-94.0); MEAN CORPUSCULAR HGB 26.9 pg (27.0-31.0); MEAN CORPUSCULAR HGB CONC 32.6 g/dl (33.0-37.0); MEAN PLATELET VOLUME 9.6 fl (9.6-12.3); MONO # 0.8 10*3/uL (0.1-1.0); MONO % 17.6 % (3.0-9.0); NEUT # 2.2 10*3/uL (2.3-7.9); NEUT % 48.7 % (47.0-73.0); PLATELET COUNT AUTOMATED 140 10*3/uL (130-400); RED BLOOD COUNT 5.83 10*6/uL (4.50-5.90); RED CELL DISTRI WIDTH 16.6 % (0-14.5); WHITE BLOOD COUNT 4.5 10*3/uL (4.8-10.8)
[2020-01-11 12:00] VITALS: BP 125/89
[2020-01-11 16:00] VITALS: BP 104/55
[2020-01-11 20:03] VITALS: BP 128/88
[2020-01-12] VITALS: BP 132/89
[2020-01-12 06:57] LABS: BUN 21 mg/dl (7-24); CHLORIDE 105 mmol/L (98-107); CREATININE 0.82 mg/dL (0.70-1.30); SODIUM 138 mmol/L (136-145)
[2020-01-12 08:00] VITALS: BP 110/66
[2020-01-12 12:00] VITALS: BP 116/80
[2020-01-12] MEDS ORDERED: MEXILETINE HCL150 MG PO (13:59)
[2020-01-12] MEDS ORDERED: METOPROLOL SUCC25 M2 PO (13:59)
[2020-01-12 16:00] VITALS: BP 116/81
[2020-01-12 20:00] VITALS: BP 110/75
[2020-01-13] VITALS: BP 107/81
[2020-01-13 06:50] LABS: BUN 14 mg/dl (7-24); CHLORIDE 101 mmol/L (98-107); CREATININE 0.75 mg/dL (0.70-1.30); POTASSIUM 3.9 mmol/L (3.5-5.1); SODIUM 135 mmol/L (136-145)
[2020-01-13 08:00] VITALS: BP 112/80
[2020-01-13 09:32] LABS: BASO % 0.5 % (0.0-1.0); EOS # 0.3 10*3/uL (0.0-0.4); EOS % 4.7 % (1.0-4.0); HEMATOCRIT 42.8 % (42.0-52.0); LYMPH # 1.4 10*3/uL (1.3-4.4); LYMPH % 21.1 % (27.0-41.0); MEAN CELL VOLUME 83.6 fl (80.0-94.0); MEAN CORPUSCULAR HGB 27.1 pg (27.0-31.0); MEAN CORPUSCULAR HGB CONC 32.5 g/dl (33.0-37.0); MONO % 15.4 % (3.0-9.0); NEUT # 3.7 10*3/uL (2.3-7.9); PLATELET COUNT AUTOMATED 138 10*3/uL (130-400); RED BLOOD COUNT 5.12 10*6/uL (4.50-5.90); RED CELL DISTRI WIDTH 16.6 % (0-14.5); WHITE BLOOD COUNT 6.4 10*3/uL (4.8-10.8)
[2020-01-13 12:00] VITALS: BP 130/54
[2020-01-13 16:00] VITALS: BP 104/76
[2020-01-13 20:00] VITALS: BP 111/71
[2020-01-14] VITALS: BP 112/84
[2020-01-14 07:02] LABS: BUN 18 mg/dl (7-24); CHLORIDE 99 mmol/L (98-107); CREATININE 0.73 mg/dL (0.70-1.30); POTASSIUM 4.3 mmol/L (3.5-5.1); SODIUM 133 mmol/L (136-145)
[2020-01-14 07:31] LABS: BASO % 0.4 % (0.0-1.0); EOS # 0.3 10*3/uL (0.0-0.4); EOS % 4.6 % (1.0-4.0); HEMATOCRIT 43.9 % (42.0-52.0); LYMPH # 1.2 10*3/uL (1.3-4.4); MEAN CELL VOLUME 84.4 fl (80.0-94.0); MEAN CORPUSCULAR HGB 27.3 pg (27.0-31.0); MEAN CORPUSCULAR HGB CONC 32.3 g/dl (33.0-37.0); MEAN PLATELET VOLUME 10.3 fl (9.6-12.3); MONO # 1.1 10*3/uL (0.1-1.0); MONO % 14.9 % (3.0-9.0); NEUT # 4.8 10*3/uL (2.3-7.9); NEUT % 63.7 % (47.0-73.0); PLATELET COUNT AUTOMATED 131 10*3/uL (130-400); RED CELL DISTRI WIDTH 16.5 % (0-14.5); WHITE BLOOD COUNT 7.5 10*3/uL (4.8-10.8)
[2020-01-14 08:00] VITALS: BP 108/74
[2020-01-14] MEDS ORDERED: TRIPLE ANTIBIO1 EACH T (10:42)
[2020-01-14] MEDS ORDERED: MAGNESIUM OXID400 MG PO (10:42)
== END 2020-01-14 13:23 | disposition home or self-care (01) | DRG 201 ==
LOC: ED 16:02 → 5E 17:08 → EDHOLD 17:08 → 5E 17:53
PROVIDERS: Emergency Medicine; Internal Medicine; ADMIT Internal Medicine; ATTEND Internal Medicine
PROC: 4B02XSZ Measurement of Cardiac Pacemaker, External Approach (ICD-10-PCS; principal; 2020-01-11)
DX: I47.1 Supraventricular tachycardia (principal); I47.2 Ventricular tachycardia; K21.9 Gastro-esophageal reflux disease without esophagitis; I73.9 Peripheral vascular disease, unspecified; J44.9 Chronic obstructive pulmonary disease, unspecified; R73.9 Hyperglycemia, unspecified; I11.0 Hypertensive heart disease with heart failure; E55.9 Vitamin D deficiency, unspecified; R73.03 Prediabetes; I50.22 Chronic systolic (congestive) heart failure; D72.819 Decreased white blood cell count, unspecified; E78.5 Hyperlipidemia, unspecified; I25.10 Atherosclerotic heart disease of native coronary artery without angina pectoris; K92.1 Melena; I48.0 Paroxysmal atrial fibrillation; I42.9 Cardiomyopathy, unspecified; F17.210 Nicotine dependence, cigarettes, uncomplicated; Z71.6 Tobacco abuse counseling; Z89.612 Acquired absence of left leg above knee; I25.2 Old myocardial infarction; Z95.5 Presence of coronary angioplasty implant and graft; Z95.810 Presence of automatic (implantable) cardiac defibrillator; Z88.8 Allergy status to other drugs, medicaments and biological substances; Z86.718 Personal history of other venous thrombosis and embolism; Z86.010 Personal history of colon polyps; Z87.440 Personal history of urinary (tract) infections; Z86.14 Personal history of Methicillin resistant Staphylococcus aureus infection; Z80.1 Family history of malignant neoplasm of trachea, bronchus and lung; Z82.49 Family history of ischemic heart disease and other diseases of the circulatory system; Z82.3 Family history of stroke; Z83.3 Family history of diabetes mellitus; Z79.899 Other long term (current) drug therapy; Z79.02 Long term (current) use of antithrombotics/antiplatelets; Z79.82 Long term (current) use of aspirin; Z79.01 Long term (current) use of anticoagulants

== ENCOUNTER → 2020-01-28 | Outpatient (CLI) | payer OTHER ==
[~2020-01-28] MED LIST changes: +CLOPIDOGREL75 MG PO; +FUROSEMIDE20 M1 PO; +MAGNESIUM OXID400 MG PO; +MELATONIN5 M7 PO; +METOPROLOL SUCC25 M2 PO; +MEXILETINE HCL150 MG PO; +TRIPLE ANTIBIO1 EACH T; +XARE20MG PO
== END | disposition home or self-care (01) ==
LOC: RESCLI 01:02
PROVIDERS: ATTEND Internal Medicine
DX: I11.0 Hypertensive heart disease with heart failure (principal); I50.22 Chronic systolic (congestive) heart failure; H93.A3 Pulsatile tinnitus, bilateral; K21.9 Gastro-esophageal reflux disease without esophagitis; E78.5 Hyperlipidemia, unspecified; I73.9 Peripheral vascular disease, unspecified; I48.91 Unspecified atrial fibrillation; G47.00 Insomnia, unspecified; G62.9 Polyneuropathy, unspecified; I25.10 Atherosclerotic heart disease of native coronary artery without angina pectoris; I47.2 Ventricular tachycardia; J44.9 Chronic obstructive pulmonary disease, unspecified; F17.210 Nicotine dependence, cigarettes, uncomplicated

== ENCOUNTER → 2020-02-08 | Outpatient (CLI) | payer OTHER | END | disposition home or self-care (01) | LOC: CT 12:59 | PROVIDERS: ATTEND Internal Medicine | DX: H93.A3 Pulsatile tinnitus, bilateral (principal); G47.00 Insomnia, unspecified; G62.9 Polyneuropathy, unspecified; I10 Essential (primary) hypertension; R33.9 Retention of urine, unspecified ==

== ENCOUNTER 2020-05-29 19:43 | Emergency (ER) | payer OTHER ==
[2020-05-29 20:11] LABS: BASO % 0.4 % (0.0-1.0); EOS % 0.4 % (1.0-4.0); LYMPH # 1.9 10*3/uL (1.3-4.4); LYMPH % 17.5 % (27.0-41.0); MEAN CELL VOLUME 87.1 fl (80.0-94.0); MEAN CORPUSCULAR HGB 28.9 pg (27.0-31.0); MEAN CORPUSCULAR HGB CONC 33.2 g/dl (33.0-37.0); MEAN PLATELET VOLUME 9.4 fl (9.6-12.3); MONO % 9.4 % (3.0-9.0); NEUT # 7.9 10*3/uL (2.3-7.9); PLATELET COUNT AUTOMATED 198 10*3/uL (130-400); RED BLOOD COUNT 5.74 10*6/uL (4.50-5.90); RED CELL DISTRI WIDTH 15.2 % (0-14.5)
[2020-05-29 20:24] LABS: ALBUMIN 3.7 gm/dl (3.1-4.5); ALKALINE PHOSPHATASE 172 U/L (45-117); BUN 9 mg/dl (7-24); CHLORIDE 104 mmol/L (98-107); SGOT/AST 12 IU/L (3-35); SGPT/ALT 13 U/L (12-78); SODIUM 134 mmol/L (136-145); TOTAL PROTEIN 8.3 gm/dL (6.4-8.2)
[2020-05-29] MEDS ORDERED: SEPTDS PO (21:16)
== END 2020-05-29 21:42 | disposition home or self-care (01) ==
LOC: ED 19:43
PROVIDERS: Internal Medicine
DX: L03.116 Cellulitis of left lower limb (principal); F10.920 Alcohol use, unspecified with intoxication, uncomplicated; I25.2 Old myocardial infarction; E78.5 Hyperlipidemia, unspecified; I11.0 Hypertensive heart disease with heart failure; I50.9 Heart failure, unspecified; F17.200 Nicotine dependence, unspecified, uncomplicated; Z89.612 Acquired absence of left leg above knee; Z88.1 Allergy status to other antibiotic agents; Z88.8 Allergy status to other drugs, medicaments and biological substances; Z79.899 Other long term (current) drug therapy; Z79.82 Long term (current) use of aspirin; Z95.5 Presence of coronary angioplasty implant and graft

== ENCOUNTER → 2020-05-31 | Outpatient (CLI) | payer OTHER ==
[~2020-05-31] MED LIST changes: +SEPTDS PO
== END | disposition home or self-care (01) ==
LOC: RESCLI 08:23
PROVIDERS: ATTEND Student in an Organized Health Care Education/Training Program
DX: J44.1 Chronic obstructive pulmonary disease with (acute) exacerbation (principal); I10 Essential (primary) hypertension; I25.10 Atherosclerotic heart disease of native coronary artery without angina pectoris; S78.112D Complete traumatic amputation at level between left hip and knee, subsequent encounter; E78.5 Hyperlipidemia, unspecified; J44.9 Chronic obstructive pulmonary disease, unspecified; K74.60 Unspecified cirrhosis of liver; I48.91 Unspecified atrial fibrillation; F33.1 Major depressive disorder, recurrent, moderate; K21.9 Gastro-esophageal reflux disease without esophagitis; Z79.82 Long term (current) use of aspirin; Z79.899 Other long term (current) drug therapy; X58.XXXD Exposure to other specified factors, subsequent encounter

== ENCOUNTER → 2020-08-10 | Outpatient (CLI) | payer OTHER ==
[2020-08-10 15:10] LABS: ALBUMIN 3.9 gm/dl (3.1-4.5); BUN 8 mg/dl (7-24); CHLORIDE 108 mmol/L (98-107); CHOLESTEROL 164 mg/dL (<200); CREATININE 0.66 mg/dL (0.70-1.30); POTASSIUM 4.6 mmol/L (3.5-5.1); SGOT/AST 16 IU/L (3-35); SGPT/ALT 22 U/L (12-78); SODIUM 138 mmol/L (136-145); TOTAL PROTEIN 7.9 gm/dL (6.4-8.2); TRIGLYCERIDES 83 mg/dl (<150); VLDL CHOLESTEROL 17 mg/dL (6-40)
[2020-08-10 15:15] LABS: VITAMIN D, 25-HYDROXY 21.4 ng/mL (30-100)
[2020-08-10 15:16] LABS: ALKALINE PHOSPHATASE 117 U/L (45-117); FREE T4 1.08 ng/dl (0.76-1.46); HDL CHOLESTEROL 71 mg/dl (40-60); LDL CHOLESTEROL 76 mg/dL (9-159)
== END | disposition home or self-care (01) ==
LOC: RESCLI 01:55
PROVIDERS: Internal Medicine; ATTEND Internal Medicine
DX: E78.5 Hyperlipidemia, unspecified (principal); I48.91 Unspecified atrial fibrillation; I25.10 Atherosclerotic heart disease of native coronary artery without angina pectoris; F33.1 Major depressive disorder, recurrent, moderate; I11.0 Hypertensive heart disease with heart failure; I50.22 Chronic systolic (congestive) heart failure; G47.00 Insomnia, unspecified; G62.9 Polyneuropathy, unspecified; I47.2 Ventricular tachycardia; K59.00 Constipation, unspecified; Z00.00 Encounter for general adult medical examination without abnormal findings; Z79.899 Other long term (current) drug therapy; Z95.828 Presence of other vascular implants and grafts; Z98.890 Other specified postprocedural states; Z88.8 Allergy status to other drugs, medicaments and biological substances; Z79.82 Long term (current) use of aspirin

== ENCOUNTER 2020-10-04 14:10 | Inpatient (IN) | payer OTHER ==
[2020-10-04] VITALS (7 sets, daily range): BP systolic 115–149; BP diastolic 73–83
[~2020-10-04] VITALS: Ht 175.2 cm; Wt 59.4 kg
[2020-10-04 14:45] LABS: BASO # 0.1 10*3/uL (0.0-0.1); BASO % 0.9 % (0.0-1.0); EOS # 0.1 10*3/uL (0.0-0.4); EOS % 1.8 % (1.0-4.0); HEMATOCRIT 43.4 % (42.0-52.0); LYMPH # 1.1 10*3/uL (1.3-4.4); MEAN CELL VOLUME 88.2 fl (80.0-94.0); MEAN CORPUSCULAR HGB 29.7 pg (27.0-31.0); MEAN CORPUSCULAR HGB CONC 33.6 g/dl (33.0-37.0); MEAN PLATELET VOLUME 9.1 fl (9.6-12.3); MONO % 17.7 % (3.0-9.0); NEUT # 3.4 10*3/uL (2.3-7.9); NEUT % 59.2 % (47.0-73.0); PLATELET COUNT AUTOMATED 257 10*3/uL (130-400); RED BLOOD COUNT 4.92 10*6/uL (4.50-5.90); RED CELL DISTRI WIDTH 13.9 % (0-14.5); WHITE BLOOD COUNT 5.7 10*3/uL (4.8-10.8)
[2020-10-04 15:00] LABS: ALBUMIN 3.2 gm/dl (3.1-4.5); ALKALINE PHOSPHATASE 191 U/L (45-117); BUN 19 mg/dl (7-24); CHLORIDE 105 mmol/L (98-107); CREATININE 0.53 mg/dL (0.70-1.30); LIPASE 133 U/L (73-393); POTASSIUM 4.2 mmol/L (3.5-5.1); SGOT/AST 21 IU/L (3-35); SGPT/ALT 36 U/L (12-78); SODIUM 133 mmol/L (136-145); TOTAL PROTEIN 7.5 gm/dL (6.4-8.2); TROPONIN I 0.018 ng/ml (<0.045)
[2020-10-04] MEDS ORDERED: PROVENTIL HFA6.7 GM INH (22:49)
[2020-10-04] MEDS ORDERED: MAALOX MAXIMUM355 ML PO (22:50)
[2020-10-04] MEDS ORDERED: ELIQUIS5 M1 PO (22:53)
[2020-10-04] MEDS ORDERED: DIGOX125 MCG PO (22:55)
[2020-10-04] MEDS ORDERED: MAGNESIUM OXID400 MG PO (22:57)
[2020-10-04] MEDS ORDERED: ATIVAN1 MG PO (22:57)
[2020-10-04] MEDS ORDERED: MECLIZINE HYD12.5 MG PO (23:24)
[2020-10-04] MEDS ORDERED: MILRINONE IV (23:31)
[2020-10-04] MEDS ORDERED: ONE-DAILY MULT1 EAC1 PO (23:32)
[2020-10-04] MEDS ORDERED: PROTONIX40 MG PO (23:33)
[2020-10-04] MEDS ORDERED: ALDACTONE25 M1 PO (23:34)
[2020-10-05] VITALS: BP 121/76
[2020-10-05 06:33] LABS: ALBUMIN 3.1 gm/dl (3.1-4.5); ALKALINE PHOSPHATASE 186 U/L (45-117); BUN 19 mg/dl (7-24); CHLORIDE 101 mmol/L (98-107); CREATININE 0.49 mg/dL (0.70-1.30); POTASSIUM 4.2 mmol/L (3.5-5.1); SGOT/AST 18 IU/L (3-35); SGPT/ALT 34 U/L (12-78); SODIUM 133 mmol/L (136-145); TOTAL PROTEIN 7.3 gm/dL (6.4-8.2)
[2020-10-05 06:50] LABS: BASO # 0.1 10*3/uL (0.0-0.1); BASO % 0.8 % (0.0-1.0); EOS # 0.1 10*3/uL (0.0-0.4); EOS % 2.1 % (1.0-4.0); HEMATOCRIT 44.2 % (42.0-52.0); LYMPH # 1.2 10*3/uL (1.3-4.4); LYMPH % 18.4 % (27.0-41.0); MEAN CELL VOLUME 89.8 fl (80.0-94.0); MEAN CORPUSCULAR HGB 29.9 pg (27.0-31.0); MEAN CORPUSCULAR HGB CONC 33.3 g/dl (33.0-37.0); MEAN PLATELET VOLUME 8.5 fl (9.6-12.3); MONO # 0.9 10*3/uL (0.1-1.0); MONO % 13.9 % (3.0-9.0); NEUT # 4.3 10*3/uL (2.3-7.9); NEUT % 64.6 % (47.0-73.0); PLATELET COUNT AUTOMATED 252 10*3/uL (130-400); RED BLOOD COUNT 4.92 10*6/uL (4.50-5.90); RED CELL DISTRI WIDTH 13.7 % (0-14.5); WHITE BLOOD COUNT 6.6 10*3/uL (4.8-10.8)
[2020-10-05 08:00] VITALS: BP 111/59
[2020-10-05 12:00] VITALS: BP 112/66
[2020-10-05 16:00] VITALS: BP 113/67
[2020-10-05 20:00] VITALS: BP 98/83
[2020-10-06] VITALS: BP 115/72
[2020-10-06 06:25] LABS: BUN 16 mg/dl (7-24); CHLORIDE 100 mmol/L (98-107); CREATININE 0.48 mg/dL (0.70-1.30); POTASSIUM 4.5 mmol/L (3.5-5.1); SODIUM 133 mmol/L (136-145)
[2020-10-06 08:00] VITALS: BP 103/63
[2020-10-06 12:00] VITALS: BP 97/61
[2020-10-06 16:00] VITALS: BP 110/50
[2020-10-10] MEDS ORDERED: MILRINONE IV (13:00)
[2020-10-11] MEDS ORDERED: PROTONIX40 MG PO (09:17)
[2020-10-11] MEDS ORDERED: CLOPIDOGREL75 MG PO (09:17)
[2020-10-11] MEDS ORDERED: MECLIZINE HCL25 M2 PO (09:17)
[2020-10-11] MEDS ORDERED: ELIQUIS5 M1 PO (09:17)
[2020-10-11] MEDS ORDERED: LIPITOR40 MG PO (09:17)
[2020-10-11] MEDS ORDERED: DIGOX125 MCG PO (09:17)
[2020-10-11] MEDS ORDERED: AMIODARONE HYD200 MG PO (09:17)
[2020-10-11] MEDS ORDERED: ATIVAN1 MG PO ×2 (09:17→09:19)
[2020-10-11] MEDS ORDERED: PROVENTIL HFA6.7 GM INH (09:17)
[2020-10-11] MEDS ORDERED: MAGNESIUM OXID400 MG PO (09:17)
[2020-10-11] MEDS ORDERED: GABAPENTIN800 MG PO (09:20)
== END 2020-10-06 20:54 | disposition home health service (06) | DRG 203 ==
LOC: ED 14:10 → EDHOLD 17:54 → 4E 17:54
PROVIDERS: Emergency Medicine; Internal Medicine; ADMIT Family Medicine; ATTEND Family Medicine
DX: M94.0 Chondrocostal junction syndrome [Tietze] (principal); R55 Syncope and collapse; I73.9 Peripheral vascular disease, unspecified; E87.1 Hypo-osmolality and hyponatremia; E43 Unspecified severe protein-calorie malnutrition; I50.42 Chronic combined systolic (congestive) and diastolic (congestive) heart failure; R42 Dizziness and giddiness; R06.02 Shortness of breath; R73.9 Hyperglycemia, unspecified; K21.9 Gastro-esophageal reflux disease without esophagitis; I11.0 Hypertensive heart disease with heart failure; F17.210 Nicotine dependence, cigarettes, uncomplicated; E78.2 Mixed hyperlipidemia; I25.119 Atherosclerotic heart disease of native coronary artery with unspecified angina pectoris; J44.9 Chronic obstructive pulmonary disease, unspecified; G89.29 Other chronic pain; E55.9 Vitamin D deficiency, unspecified; I47.2 Ventricular tachycardia; I42.9 Cardiomyopathy, unspecified; I48.0 Paroxysmal atrial fibrillation; Z88.8 Allergy status to other drugs, medicaments and biological substances; Z89.612 Acquired absence of left leg above knee; Z95.810 Presence of automatic (implantable) cardiac defibrillator; Z89.021 Acquired absence of right finger(s); Z95.5 Presence of coronary angioplasty implant and graft; Z82.3 Family history of stroke; Z83.3 Family history of diabetes mellitus; Z80.1 Family history of malignant neoplasm of trachea, bronchus and lung; Z82.49 Family history of ischemic heart disease and other diseases of the circulatory system; Z86.718 Personal history of other venous thrombosis and embolism; Z79.899 Other long term (current) drug therapy; Z79.02 Long term (current) use of antithrombotics/antiplatelets; Z68.20 Body mass index [BMI] 20.0-20.9, adult

== ENCOUNTER 2020-11-24 03:53 | Emergency (ER) | payer OTHER ==
[~2020-11-24] VITALS: Ht 175.2 cm; Wt 59.0 kg
[~2020-11-24 03:53] MED LIST changes: +ALDACTONE25 M1 PO; +ATIVAN1 MG PO; +MAALOX MAXIMUM355 ML PO; +MECLIZINE HCL25 M2 PO; +MECLIZINE HYD12.5 MG PO; +MILRINONE IV; +ONE-DAILY MULT1 EAC1 PO; +PROVENTIL HFA6.7 GM INH
[2021-01-18] MEDS ORDERED: CEPHALEXIN500 M1 PO (15:08)
== END 2020-11-24 05:19 | disposition home or self-care (01) ==
LOC: ED 03:53
DX: T82.524A Displacement of infusion catheter, initial encounter (principal); Z79.899 Other long term (current) drug therapy; Z79.2 Long term (current) use of antibiotics; Z89.612 Acquired absence of left leg above knee; Z95.0 Presence of cardiac pacemaker; Z87.891 Personal history of nicotine dependence; Y84.8 Other medical procedures as the cause of abnormal reaction of the patient, or of later complication, without mention of misadventure at the time of the procedure; Y92.89 Other specified places as the place of occurrence of the external cause

== ENCOUNTER 2020-11-24 11:11 | Emergency (ER) | payer OTHER ==
[~2020-11-24] VITALS: Ht 175.2 cm; Wt 59.9 kg
[2020-11-24 13:50] VITALS: BP 104/75
[2020-11-24 14:15] VITALS: BP 100/75
[2020-11-24 14:30] VITALS: BP 119/86
[2021-01-18] MEDS ORDERED: CEPHALEXIN500 M1 PO (15:08)
== END 2020-11-24 16:57 | disposition home or self-care (01) ==
LOC: ED 11:11
DX: I50.9 Heart failure, unspecified (principal); Z45.2 Encounter for adjustment and management of vascular access device; Z88.8 Allergy status to other drugs, medicaments and biological substances; Z88.1 Allergy status to other antibiotic agents; Z79.899 Other long term (current) drug therapy; Z89.612 Acquired absence of left leg above knee; Z95.810 Presence of automatic (implantable) cardiac defibrillator; Z89.021 Acquired absence of right finger(s); Z87.891 Personal history of nicotine dependence

== ENCOUNTER 2020-11-27 11:20 | Emergency (ER) | payer OTHER ==
[~2020-11-27] VITALS: Ht 175.2 cm; Wt 59.9 kg
[2020-11-27 12:10] LABS: BASO % 0.7 % (0.0-1.0); EOS # 0.1 10*3/uL (0.0-0.4); EOS % 2.1 % (1.0-4.0); HEMATOCRIT 38.8 % (42.0-52.0); LYMPH # 1.3 10*3/uL (1.3-4.4); MEAN CELL VOLUME 87.8 fl (80.0-94.0); MEAN CORPUSCULAR HGB 29.2 pg (27.0-31.0); MEAN CORPUSCULAR HGB CONC 33.2 g/dl (33.0-37.0); MEAN PLATELET VOLUME 8.4 fl (9.6-12.3); MONO % 17.6 % (3.0-9.0); NEUT # 3.2 10*3/uL (2.3-7.9); NEUT % 57.1 % (47.0-73.0); PLATELET COUNT AUTOMATED 190 10*3/uL (130-400); RED BLOOD COUNT 4.42 10*6/uL (4.50-5.90); RED CELL DISTRI WIDTH 14.2 % (0-14.5); WHITE BLOOD COUNT 5.7 10*3/uL (4.8-10.8)
[2020-11-27 12:22] LABS: ALBUMIN 3.1 gm/dl (3.1-4.5); ALKALINE PHOSPHATASE 100 U/L (45-117); BUN 13 mg/dl (7-24); CHLORIDE 104 mmol/L (98-107); CREATININE 0.77 mg/dL (0.70-1.30); LIPASE 91 U/L (73-393); POTASSIUM 3.4 mmol/L (3.5-5.1); SGOT/AST 18 IU/L (3-35); SGPT/ALT 26 U/L (12-78); SODIUM 136 mmol/L (136-145); TOTAL PROTEIN 6.5 gm/dL (6.4-8.2)
[2020-11-27 15:13] LABS: BILIRUBIN Negative (Negative); BLOOD Negative (Negative); CLARITY Clear (Clear); COLOR Yellow (Yellow); GLUCOSE Negative (Negative); KETONE Negative (Negative); LEUKO ESTERASE Negative (Negative); NITRITE Negative (Negative); SPECIFIC GRAVITY 1.015 (1.001-1.030); UROBILINOGEN 0.2 E.U./dl (0.0-1.0)
[2020-11-27 15:40] LABS: RBC 0-2 rbc/hpf (0-2)
[2020-11-27 15:41] LABS: BACTERIA TRACE; EPITHELIAL CELLS 0-2; MUCOUS TRACE; WBC 0-2 wbc/hpf (0-5)
[2021-01-18] MEDS ORDERED: CEPHALEXIN500 M1 PO (15:08)
== END 2020-11-27 15:35 | disposition home or self-care (01) ==
LOC: ED 11:20
PROVIDERS: Emergency Medicine
DX: R10.31 Right lower quadrant pain (principal); Z45.2 Encounter for adjustment and management of vascular access device; Z79.899 Other long term (current) drug therapy; Z88.8 Allergy status to other drugs, medicaments and biological substances; Z88.1 Allergy status to other antibiotic agents; Z89.612 Acquired absence of left leg above knee; Z95.5 Presence of coronary angioplasty implant and graft; Z87.891 Personal history of nicotine dependence

== ENCOUNTER 2020-11-28 18:56 | Emergency (ER) | payer OTHER ==
[~2020-11-28] VITALS: Ht 175.2 cm; Wt 59.9 kg
[2020-11-28 23:54] LABS: BASO % 0.6 % (0.0-1.0); EOS # 0.2 10*3/uL (0.0-0.4); EOS % 2.9 % (1.0-4.0); LYMPH # 1.7 10*3/uL (1.3-4.4); LYMPH % 23.2 % (27.0-41.0); MEAN CELL VOLUME 86.7 fl (80.0-94.0); MEAN CORPUSCULAR HGB 28.8 pg (27.0-31.0); MEAN CORPUSCULAR HGB CONC 33.2 g/dl (33.0-37.0); MEAN PLATELET VOLUME 9.4 fl (9.6-12.3); MONO % 14.1 % (3.0-9.0); NEUT # 4.2 10*3/uL (2.3-7.9); NEUT % 58.9 % (47.0-73.0); PLATELET COUNT AUTOMATED 199 10*3/uL (130-400); RED BLOOD COUNT 4.73 10*6/uL (4.50-5.90); RED CELL DISTRI WIDTH 14.2 % (0-14.5); WHITE BLOOD COUNT 7.2 10*3/uL (4.8-10.8)
[2020-11-29 00:09] LABS: ALBUMIN 3.3 gm/dl (3.1-4.5); ALKALINE PHOSPHATASE 128 U/L (45-117); BUN 12 mg/dl (7-24); CHLORIDE 102 mmol/L (98-107); CREATININE 0.69 mg/dL (0.70-1.30); SGOT/AST 12 IU/L (3-35); SGPT/ALT 25 U/L (12-78); SODIUM 133 mmol/L (136-145); TOTAL PROTEIN 7.2 gm/dL (6.4-8.2)
[2020-11-29 00:11] LABS: POTASSIUM 4.5 mmol/L (3.5-5.1)
[2020-11-29 02:06] LABS: BILIRUBIN Negative (Negative); BLOOD Negative (Negative); CLARITY Clear (Clear); COLOR Yellow (Yellow); GLUCOSE Negative (Negative); KETONE Negative (Negative); LEUKO ESTERASE Negative (Negative); NITRITE Negative (Negative); PH 7.5 (4.5-8.0); SPECIFIC GRAVITY 1.015 (1.001-1.030)
[2020-11-29 02:14] LABS: RBC 0-2 rbc/hpf (0-2); WBC 0-2 wbc/hpf (0-5)
[2020-11-29 02:15] LABS: BACTERIA TRACE; MUCOUS TRACE
[2020-11-29] MEDS ORDERED: METHOCARBAMOL750 M1 PO (05:34)
[2021-01-18] MEDS ORDERED: CEPHALEXIN500 M1 PO (15:08)
== END 2020-11-29 06:10 | disposition home or self-care (01) ==
LOC: ED 18:56
PROVIDERS: Physician Assistant
DX: S39.012A Strain of muscle, fascia and tendon of lower back, initial encounter (principal); M47.816 Spondylosis without myelopathy or radiculopathy, lumbar region; Z88.8 Allergy status to other drugs, medicaments and biological substances; Z88.1 Allergy status to other antibiotic agents; Z79.899 Other long term (current) drug therapy; Z89.612 Acquired absence of left leg above knee; Z95.810 Presence of automatic (implantable) cardiac defibrillator; Z89.021 Acquired absence of right finger(s); Z87.891 Personal history of nicotine dependence; X50.1XXA Overexertion from prolonged static or awkward postures, initial encounter; Y93.89 Activity, other specified; Y92.89 Other specified places as the place of occurrence of the external cause; Y99.8 Other external cause status

== ENCOUNTER 2020-12-04 19:07 | Emergency (ER) | payer OTHER ==
[~2020-12-04] VITALS: Ht 175.2 cm; Wt 59.9 kg
[~2020-12-04 19:07] MED LIST changes: +METHOCARBAMOL750 M1 PO
[2021-01-18] MEDS ORDERED: CEPHALEXIN500 M1 PO (15:08)
== END 2020-12-04 22:14 | disposition home or self-care (01) ==
LOC: ED 19:07
DX: T82.524A Displacement of infusion catheter, initial encounter (principal); Z88.8 Allergy status to other drugs, medicaments and biological substances; Z88.1 Allergy status to other antibiotic agents; Z79.899 Other long term (current) drug therapy; Z89.612 Acquired absence of left leg above knee; Z95.5 Presence of coronary angioplasty implant and graft; Z87.891 Personal history of nicotine dependence; Y84.8 Other medical procedures as the cause of abnormal reaction of the patient, or of later complication, without mention of misadventure at the time of the procedure; Y92.89 Other specified places as the place of occurrence of the external cause

== ENCOUNTER 2020-12-05 08:40 | Emergency (ER) | payer OTHER ==
[~2020-12-05] VITALS: Ht 175.2 cm; Wt 59.9 kg
[~2020-12-05 08:40] MED LIST changes: -BUPROPION HCL150 M1 PO; -MILRINONE-20 MG/100 IV; -NEURONTIN800 MG PO; -TRAVEL SICKNESS50 MG PO
[2021-01-18] MEDS ORDERED: CEPHALEXIN500 M1 PO (15:08)
== END 2020-12-05 09:32 | disposition home or self-care (01) ==
LOC: ED 08:40
DX: T82.524A Displacement of infusion catheter, initial encounter (principal); Z88.8 Allergy status to other drugs, medicaments and biological substances; Z88.1 Allergy status to other antibiotic agents; Z79.899 Other long term (current) drug therapy; Z89.612 Acquired absence of left leg above knee; Z95.5 Presence of coronary angioplasty implant and graft; Z89.021 Acquired absence of right finger(s); Z87.891 Personal history of nicotine dependence; Y84.8 Other medical procedures as the cause of abnormal reaction of the patient, or of later complication, without mention of misadventure at the time of the procedure; Y92.89 Other specified places as the place of occurrence of the external cause

== ENCOUNTER → 2020-12-05 | Day surgery (SDC) | payer OTHER ==
[~2020-12-05] MED LIST changes: +BUPROPION HCL150 M1 PO; +MILRINONE-20 MG/100 IV; +NEURONTIN800 MG PO; +TRAVEL SICKNESS50 MG PO
[2020-12-05 10:30] VITALS: BP 135/71
== END | disposition home or self-care (01) ==
LOC: SDC 10:41
PROVIDERS: ATTEND Student in an Organized Health Care Education/Training Program
DX: Z45.2 Encounter for adjustment and management of vascular access device (principal); I11.0 Hypertensive heart disease with heart failure; I50.9 Heart failure, unspecified; I25.2 Old myocardial infarction; F41.9 Anxiety disorder, unspecified; J44.9 Chronic obstructive pulmonary disease, unspecified; E78.5 Hyperlipidemia, unspecified; Z95.0 Presence of cardiac pacemaker; Z79.899 Other long term (current) drug therapy

== ENCOUNTER 2021-01-17 12:48 | Inpatient (IN) | payer OTHER ==
[~2021-01-17] VITALS: Ht 175.2 cm; Wt 61.0 kg
[2021-01-17 12:49] VITALS: BP 152/82
[2021-01-17 14:12] LABS: BILIRUBIN Negative (Negative); BLOOD Negative (Negative); CLARITY Clear (Clear); COLOR Yellow (Yellow); GLUCOSE Negative (Negative); KETONE Negative (Negative); LEUKO ESTERASE Negative (Negative); NITRITE Negative (Negative); PH 7.5 (4.5-8.0); SPECIFIC GRAVITY <= 1.005 (1.001-1.030); UROBILINOGEN 0.2 E.U./dl (0.0-1.0)
[2021-01-17 14:23] LABS: BACTERIA 1+; CALCIUM OXALATE CRYSTALS Trace
[2021-01-17 15:32] LABS: ALBUMIN 3.3 gm/dl (3.1-4.5); ALKALINE PHOSPHATASE 124 U/L (45-117); BUN 10 mg/dl (7-24); CHLORIDE 103 mmol/L (98-107); CREATININE 0.64 mg/dL (0.70-1.30); POTASSIUM 4.1 mmol/L (3.5-5.1); SGOT/AST 14 IU/L (3-35); SGPT/ALT 26 U/L (12-78); SODIUM 137 mmol/L (136-145); TOTAL PROTEIN 7.5 gm/dL (6.4-8.2)
[2021-01-17 16:54] LABS: HEMATOCRIT 37.3 % (42.0-52.0); MEAN CELL VOLUME 98.2 fl (80.0-94.0); MEAN CORPUSCULAR HGB 35.5 pg (27.0-31.0); MEAN CORPUSCULAR HGB CONC 36.2 g/dl (33.0-37.0); MEAN PLATELET VOLUME 10.1 fl (9.6-12.3); PLATELET COUNT AUTOMATED 154 10*3/uL (130-400); WHITE BLOOD COUNT 9.9 10*3/uL (4.8-10.8)
[2021-01-17 17:40] LABS: BASOPHILS 1 % (0-1); TOTAL CELLS COUNTED 100 #CELLS
[2021-01-17 17:41] LABS: BURR CELLS FEW; PLATELET SUFFICIENCY NORMAL (NORMAL)
[2021-01-17 17:42] LABS: OVALOCYTES FEW
[2021-01-17] MEDS ORDERED: BUPROPION HCL150 M1 PO (19:53)
[2021-01-17] MEDS ORDERED: NEURONTIN800 MG PO (19:54)
[2021-01-17 20:27] VITALS: BP 123/86
[2021-01-17 20:30] VITALS: BP 121/82
[2021-01-18] VITALS: BP 117/79
[2021-01-18] MEDS ORDERED: MILRINONE-20 MG/100 IV (00:22)
[2021-01-18 06:50] LABS: BASO # 0.1 10*3/uL (0.0-0.1); BASO % 0.6 % (0.0-1.0); EOS # 0.2 10*3/uL (0.0-0.4); EOS % 2.2 % (1.0-4.0); LYMPH # 1.3 10*3/uL (1.3-4.4); LYMPH % 13.8 % (27.0-41.0); MEAN CORPUSCULAR HGB 28.4 pg (27.0-31.0); MEAN CORPUSCULAR HGB CONC 32.5 g/dl (33.0-37.0); MEAN PLATELET VOLUME 9.8 fl (9.6-12.3); MONO # 1.1 10*3/uL (0.1-1.0); MONO % 11.7 % (3.0-9.0); NEUT # 6.8 10*3/uL (2.3-7.9); NEUT % 71.4 % (47.0-73.0); PLATELET COUNT AUTOMATED 180 10*3/uL (130-400); RED BLOOD COUNT 5.04 10*6/uL (4.50-5.90); RED CELL DISTRI WIDTH 14.4 % (0-14.5); WHITE BLOOD COUNT 9.5 10*3/uL (4.8-10.8)
[2021-01-18 07:05] LABS: MEAN CELL VOLUME 87.3 fl (80.0-94.0)
[2021-01-18 07:17] LABS: BUN 12 mg/dl (7-24); CHLORIDE 102 mmol/L (98-107); CREATININE 0.56 mg/dL (0.70-1.30); POTASSIUM 4.1 mmol/L (3.5-5.1); SODIUM 132 mmol/L (136-145)
[2021-01-18 08:00] VITALS: BP 143/88
[2021-01-18] MEDS ORDERED: TRAVEL SICKNESS50 MG PO ×2 (11:32→11:34)
[2021-01-18] MEDS ORDERED: FUROSEMIDE20 M1 PO (11:35)
[2021-01-18] MEDS ORDERED: ATIVAN1 MG PO (11:35)
[2021-01-18 12:00] VITALS: BP 126/78
[2021-01-18] MEDS ORDERED: CEPHALEXIN500 M1 PO ×2 (15:08)
[2021-01-18] MEDS ORDERED: HYDROCODONE-AC1 EAC1 PO (15:09)
== END 2021-01-18 19:35 | disposition hospice, home (50) | DRG 349 ==
LOC: ED 12:48 → EDHOLD 14:50 → 4E 14:50
PROVIDERS: Emergency Medicine; Student in an Organized Health Care Education/Training Program; ADMIT Internal Medicine; ATTEND Internal Medicine
DX: T87.44 Infection of amputation stump, left lower extremity (principal); L03.116 Cellulitis of left lower limb; E44.0 Moderate protein-calorie malnutrition; S68.126 Partial traumatic metacarpophalangeal amputation of right little finger; I73.9 Peripheral vascular disease, unspecified; E51.9 Thiamine deficiency, unspecified; I48.0 Paroxysmal atrial fibrillation; K21.9 Gastro-esophageal reflux disease without esophagitis; G62.9 Polyneuropathy, unspecified; Y83.5 Amputation of limb(s) as the cause of abnormal reaction of the patient, or of later complication, without mention of misadventure at the time of the procedure; I25.10 Atherosclerotic heart disease of native coronary artery without angina pectoris; J41.0 Simple chronic bronchitis; E78.5 Hyperlipidemia, unspecified; I50.42 Chronic combined systolic (congestive) and diastolic (congestive) heart failure; I11.0 Hypertensive heart disease with heart failure; E55.9 Vitamin D deficiency, unspecified; F41.9 Anxiety disorder, unspecified; Z88.8 Allergy status to other drugs, medicaments and biological substances; Z79.899 Other long term (current) drug therapy; Z95.5 Presence of coronary angioplasty implant and graft; Z87.891 Personal history of nicotine dependence; Z80.1 Family history of malignant neoplasm of trachea, bronchus and lung; Z83.3 Family history of diabetes mellitus; Z79.51 Long term (current) use of inhaled steroids; Z68.1 Body mass index [BMI] 19.9 or less, adult

== ENCOUNTER 2021-01-31 12:04 | Inpatient (IN) | payer OTHER ==
[~2021-01-31] VITALS: Ht 175.2 cm; Wt 63.5 kg
[~2021-01-31 12:04] MED LIST changes: +BUPROPION HCL150 M1 PO; +MILRINONE-20 MG/100 IV; +NEURONTIN800 MG PO; +TRAVEL SICKNESS50 MG PO
[2021-01-31 12:09] VITALS: BP 97/67
[2021-01-31 13:13] LABS: BASO # 0.1 10*3/uL (0.0-0.1); BASO % 0.9 % (0.0-1.0); EOS # 0.2 10*3/uL (0.0-0.4); EOS % 3.2 % (1.0-4.0); HEMATOCRIT 42.4 % (42.0-52.0); LYMPH # 1.2 10*3/uL (1.3-4.4); LYMPH % 17.9 % (27.0-41.0); MEAN CELL VOLUME 93.8 fl (80.0-94.0); MEAN CORPUSCULAR HGB 29.4 pg (27.0-31.0); MEAN CORPUSCULAR HGB CONC 31.4 g/dl (33.0-37.0); MONO # 0.8 10*3/uL (0.1-1.0); MONO % 11.5 % (3.0-9.0); NEUT # 4.4 10*3/uL (2.3-7.9); NEUT % 66.2 % (47.0-73.0); PLATELET COUNT AUTOMATED 244 10*3/uL (130-400); RED BLOOD COUNT 4.52 10*6/uL (4.50-5.90); WHITE BLOOD COUNT 6.6 10*3/uL (4.8-10.8)
[2021-01-31 13:34] LABS: ALBUMIN 3.1 gm/dl (3.1-4.5); ALKALINE PHOSPHATASE 103 U/L (45-117); BUN 12 mg/dl (7-24); CHLORIDE 109 mmol/L (98-107); SGOT/AST 16 IU/L (3-35); SGPT/ALT 25 U/L (12-78); SODIUM 140 mmol/L (136-145); TOTAL PROTEIN 6.8 gm/dL (6.4-8.2)
[2021-01-31 16:16] VITALS: BP 101/66
[2021-01-31 18:35] VITALS: BP 94/56
[2021-01-31 19:50] VITALS: BP 91/55
[2021-01-31 20:59] VITALS: BP 127/81
[2021-01-31 22:50] VITALS: BP 119/81
[2021-02-01 01:30] VITALS: BP 97/52
[2021-02-01 02:00] VITALS: BP 124/94
[2021-02-01 07:55] LABS: BASO % 0.8 % (0.0-1.0); EOS # 0.2 10*3/uL (0.0-0.4); EOS % 5.1 % (1.0-4.0); HEMATOCRIT 40.8 % (42.0-52.0); LYMPH # 1.2 10*3/uL (1.3-4.4); LYMPH % 25.7 % (27.0-41.0); MEAN CELL VOLUME 91.5 fl (80.0-94.0); MEAN CORPUSCULAR HGB 29.6 pg (27.0-31.0); MEAN CORPUSCULAR HGB CONC 32.4 g/dl (33.0-37.0); MEAN PLATELET VOLUME 9.9 fl (9.6-12.3); MONO # 0.6 10*3/uL (0.1-1.0); MONO % 13.5 % (3.0-9.0); NEUT # 2.6 10*3/uL (2.3-7.9); NEUT % 54.5 % (47.0-73.0); RED BLOOD COUNT 4.46 10*6/uL (4.50-5.90); RED CELL DISTRI WIDTH 14.9 % (0-14.5); WHITE BLOOD COUNT 4.7 10*3/uL (4.8-10.8)
[2021-02-01 08:00] VITALS: BP 138/83
[2021-02-01 08:11] LABS: ALBUMIN 2.9 gm/dl (3.1-4.5); BUN 15 mg/dl (7-24); CHLORIDE 105 mmol/L (98-107); CREATININE 0.73 mg/dL (0.70-1.30); POTASSIUM 3.7 mmol/L (3.5-5.1); SGOT/AST 17 IU/L (3-35); SGPT/ALT 24 U/L (12-78); SODIUM 138 mmol/L (136-145); TOTAL PROTEIN 6.5 gm/dL (6.4-8.2)
[2021-02-01 08:12] LABS: ALKALINE PHOSPHATASE 97 U/L (45-117)
[2021-02-01 08:24] LABS: PLATELET COUNT AUTOMATED 207 10*3/uL (130-400)
[2021-02-01 12:00] VITALS: BP 140/94
[2021-02-01] MEDS ORDERED: MECLIZINE HCL25 M2 PO (12:02)
[2021-02-01] MEDS ORDERED: DOXYCYCLINE MO100 M1 PO (12:02)
== END 2021-02-01 16:58 | disposition hospice, home (50) | DRG 349 ==
LOC: ED 12:04 → EDHOLD 12:54 → 4E 12:54
PROVIDERS: Emergency Medicine; Registered Nurse; ADMIT Family Medicine; ATTEND Family Medicine
DX: T87.44 Infection of amputation stump, left lower extremity (principal); I73.9 Peripheral vascular disease, unspecified; G62.9 Polyneuropathy, unspecified; E44.0 Moderate protein-calorie malnutrition; I50.22 Chronic systolic (congestive) heart failure; I11.0 Hypertensive heart disease with heart failure; I25.10 Atherosclerotic heart disease of native coronary artery without angina pectoris; J44.9 Chronic obstructive pulmonary disease, unspecified; E78.2 Mixed hyperlipidemia; I48.91 Unspecified atrial fibrillation; E51.9 Thiamine deficiency, unspecified; E55.9 Vitamin D deficiency, unspecified; E87.8 Other disorders of electrolyte and fluid balance, not elsewhere classified; Z51.5 Encounter for palliative care; F41.9 Anxiety disorder, unspecified; Y83.5 Amputation of limb(s) as the cause of abnormal reaction of the patient, or of later complication, without mention of misadventure at the time of the procedure; Z80.1 Family history of malignant neoplasm of trachea, bronchus and lung; Z83.3 Family history of diabetes mellitus; Z88.8 Allergy status to other drugs, medicaments and biological substances; Z82.3 Family history of stroke; Z79.899 Other long term (current) drug therapy

== ENCOUNTER 2021-03-14 23:17 | Inpatient (IN) | payer OTHER ==
[~2021-03-14] VITALS: Ht 175.2 cm; Wt 76.7 kg
[~2021-03-14 23:17] MED LIST changes: +DOXYCYCLINE MO100 M1 PO
[2021-03-14 23:29] VITALS: BP 130/60; BP 150/60
[2021-03-14 23:37] LABS: BASO # 0.1 10*3/uL (0.0-0.1); BASO % 0.6 % (0.0-1.0); EOS # 0.2 10*3/uL (0.0-0.4); EOS % 2.7 % (1.0-4.0); HEMATOCRIT 42.8 % (42.0-52.0); LYMPH # 1.6 10*3/uL (1.3-4.4); LYMPH % 19.5 % (27.0-41.0); MEAN CELL VOLUME 91.3 fl (80.0-94.0); MEAN CORPUSCULAR HGB CONC 31.8 g/dl (33.0-37.0); MEAN PLATELET VOLUME 9.4 fl (9.6-12.3); MONO # 1.4 10*3/uL (0.1-1.0); MONO % 16.7 % (3.0-9.0); NEUT % 59.3 % (47.0-73.0); PLATELET COUNT AUTOMATED 202 10*3/uL (130-400); RED BLOOD COUNT 4.69 10*6/uL (4.50-5.90); RED CELL DISTRI WIDTH 16.5 % (0-14.5); WHITE BLOOD COUNT 8.4 10*3/uL (4.8-10.8)
[2021-03-14 23:51] LABS: ACT PARTIAL THROMBO TIME 27.8 SECONDS (20.0-32.1)
[2021-03-14 23:56] LABS: ALBUMIN 3.5 gm/dl (3.1-4.5); ALKALINE PHOSPHATASE 93 U/L (45-117); BUN 15 mg/dl (7-24); CHLORIDE 100 mmol/L (98-107); CREATININE 0.82 mg/dL (0.70-1.30); POTASSIUM 4.6 mmol/L (3.5-5.1); SGOT/AST 17 IU/L (3-35); SGPT/ALT 33 U/L (12-78); SODIUM 132 mmol/L (136-145); TOTAL PROTEIN 7.2 gm/dL (6.4-8.2)
[2021-03-14 23:57] LABS: TROPONIN I 0.029 ng/ml (<0.045)
[2021-03-15] VITALS (10 sets, daily range): BP systolic 98–138; BP diastolic 49–86
[2021-03-15 06:00] LABS: BUN 16 mg/dl (7-24); CHLORIDE 101 mmol/L (98-107); CREATININE 0.76 mg/dL (0.70-1.30); POTASSIUM 4.2 mmol/L (3.5-5.1); SODIUM 134 mmol/L (136-145)
[2021-03-15 06:10] LABS: BASO % 0.5 % (0.0-1.0); EOS # 0.2 10*3/uL (0.0-0.4); EOS % 1.9 % (1.0-4.0); HEMATOCRIT 40.8 % (42.0-52.0); LYMPH % 12.7 % (27.0-41.0); MEAN CELL VOLUME 91.3 fl (80.0-94.0); MEAN CORPUSCULAR HGB 29.1 pg (27.0-31.0); MEAN CORPUSCULAR HGB CONC 31.9 g/dl (33.0-37.0); MEAN PLATELET VOLUME 9.5 fl (9.6-12.3); MONO # 1.1 10*3/uL (0.1-1.0); MONO % 14.4 % (3.0-9.0); NEUT # 5.4 10*3/uL (2.3-7.9); NEUT % 69.6 % (47.0-73.0); PLATELET COUNT AUTOMATED 199 10*3/uL (130-400); RED BLOOD COUNT 4.47 10*6/uL (4.50-5.90); RED CELL DISTRI WIDTH 16.4 % (0-14.5); WHITE BLOOD COUNT 7.7 10*3/uL (4.8-10.8)
[2021-03-15] MEDS ORDERED: MECLIZINE HYD12.5 MG PO (06:42)
[2021-03-15] MEDS ORDERED: CLOPIDOGREL75 MG PO (06:43)
[2021-03-15] MEDS ORDERED: ELIQUIS5 M1 PO (06:44)
[2021-03-15] MEDS ORDERED: Magnesium Oxid400 MG PO (06:45)
[2021-03-15] MEDS ORDERED: MELATONIN10 M4 PO (06:45)
[2021-03-15] MEDS ORDERED: PROTONIX40 MG PO (06:46)
[2021-03-15] MEDS ORDERED: VISTARIL50 MG PO (06:47)
[2021-03-15] MEDS ORDERED: METHOCARBAMOL750 M1 PO (06:47)
[2021-03-15 11:45] LABS: BILIRUBIN Negative (Negative); BLOOD Negative (Negative); CLARITY Clear (Clear); COLOR Yellow (Yellow); GLUCOSE Negative (Negative); KETONE Negative (Negative); LEUKO ESTERASE Negative (Negative); NITRITE Negative (Negative); PH 7.5 (4.5-8.0); SPECIFIC GRAVITY 1.015 (1.001-1.030); UROBILINOGEN 0.2 E.U./dl (0.0-1.0)
[2021-03-15 11:53] LABS: BACTERIA TRACE
[2021-03-15] MEDS ORDERED: TYLENOL EXTRA500 M3 PO (19:51)
[2021-03-15] MEDS ORDERED: PROAIR HFA8.5 GM INH (19:59)
[2021-03-15] MEDS ORDERED: AMIODARONE HYD200 MG PO (20:00)
[2021-03-15] MEDS ORDERED: LIPITOR40 MG PO (20:01)
[2021-03-15] MEDS ORDERED: SENNOSIDES-DOC1 EACH PO (20:03)
[2021-03-16] VITALS: BP 124/71
[2021-03-16 07:28] LABS: BUN 19 mg/dl (7-24); CHLORIDE 100 mmol/L (98-107); POTASSIUM 4.4 mmol/L (3.5-5.1); SODIUM 134 mmol/L (136-145)
[2021-03-16 07:29] LABS: CREATININE 0.78 mg/dL (0.70-1.30)
[2021-03-16 07:44] LABS: MEAN CELL VOLUME 90.9 fl (80.0-94.0); MEAN CORPUSCULAR HGB 28.7 pg (27.0-31.0); MEAN CORPUSCULAR HGB CONC 31.5 g/dl (33.0-37.0); MEAN PLATELET VOLUME 8.8 fl (9.6-12.3); PLATELET COUNT AUTOMATED 178 10*3/uL (130-400); RED BLOOD COUNT 4.29 10*6/uL (4.50-5.90); RED CELL DISTRI WIDTH 16.4 % (0-14.5); WHITE BLOOD COUNT 5.6 10*3/uL (4.8-10.8)
[2021-03-16 08:00] VITALS: BP 64/38; BP 98/60
[2021-03-16 08:16] LABS: ATYPICAL LYMPHS 1 % (0-0); BASOPHILS 1 % (0-1); TOTAL CELLS COUNTED 100 #CELLS
[2021-03-16 08:17] LABS: OVALOCYTES FEW; PLATELET SUFFICIENCY NORMAL (NORMAL); POLYCHROMASIA SLIGHT
[2021-03-16 12:00] VITALS: BP 140/83
[2021-03-16] MEDS ORDERED: MEXILETINE HCL150 MG PO (13:53)
[2021-03-16] MEDS ORDERED: IMDUR SA30 MG PO (13:53)
[2021-03-16] MEDS ORDERED: PACERONE200 MG PO (13:53)
[2021-03-16 16:00] VITALS: BP 119/81
== END 2021-03-16 16:25 | disposition hospice, inpatient (51) | DRG 201 ==
LOC: ED 23:17 → EDHOLD 03-15 00:56 → 5E 03-15 00:56
PROVIDERS: Internal Medicine; Student in an Organized Health Care Education/Training Program; ADMIT Internal Medicine; ATTEND Internal Medicine
PROC: 4B02XTZ Measurement of Cardiac Defibrillator, External Approach (ICD-10-PCS; principal; 2021-03-15)
DX: I47.2 Ventricular tachycardia (principal); E87.1 Hypo-osmolality and hyponatremia; K21.9 Gastro-esophageal reflux disease without esophagitis; I25.10 Atherosclerotic heart disease of native coronary artery without angina pectoris; F41.9 Anxiety disorder, unspecified; G62.9 Polyneuropathy, unspecified; I50.20 Unspecified systolic (congestive) heart failure; E51.9 Thiamine deficiency, unspecified; Z20.822 Contact with and (suspected) exposure to COVID-19; I11.0 Hypertensive heart disease with heart failure; J44.9 Chronic obstructive pulmonary disease, unspecified; E78.5 Hyperlipidemia, unspecified; I47.1 Supraventricular tachycardia; Z51.5 Encounter for palliative care; Z87.891 Personal history of nicotine dependence; Z80.1 Family history of malignant neoplasm of trachea, bronchus and lung; Z83.3 Family history of diabetes mellitus; Z88.8 Allergy status to other drugs, medicaments and biological substances; Z79.899 Other long term (current) drug therapy

== ENCOUNTER 2021-04-29 08:49 | Emergency (ER) | payer OTHER ==
[~2021-04-29 08:49] MED LIST changes: +MELATONIN10 M4 PO; +Magnesium Oxid400 MG PO; +PACERONE200 MG PO; +PROAIR HFA8.5 GM INH; +SENNOSIDES-DOC1 EACH PO; +TYLENOL EXTRA500 M3 PO; +VISTARIL50 MG PO
[2021-04-29 09:29] LABS: BASO % 0.4 % (0.0-1.0); EOS # 0.1 10*3/uL (0.0-0.4); EOS % 0.9 % (1.0-4.0); HEMATOCRIT 38.6 % (42.0-52.0); LYMPH # 0.5 10*3/uL (1.3-4.4); LYMPH % 6.5 % (27.0-41.0); MEAN CORPUSCULAR HGB 28.2 pg (27.0-31.0); MEAN CORPUSCULAR HGB CONC 31.3 g/dl (33.0-37.0); MEAN PLATELET VOLUME 8.9 fl (9.6-12.3); MONO # 1.1 10*3/uL (0.1-1.0); MONO % 15.1 % (3.0-9.0); NEUT # 5.7 10*3/uL (2.3-7.9); NEUT % 76.7 % (47.0-73.0); PLATELET COUNT AUTOMATED 192 10*3/uL (130-400); RED BLOOD COUNT 4.29 10*6/uL (4.50-5.90); RED CELL DISTRI WIDTH 14.9 % (0-14.5); WHITE BLOOD COUNT 7.4 10*3/uL (4.8-10.8)
[2021-04-29 09:46] LABS: ACT PARTIAL THROMBO TIME 33.7 SECONDS (20.0-32.1); INTERNATIONAL NORM RATIO 1.2 (2.0-3.5)
[2021-04-29 09:48] LABS: ALBUMIN 3.5 gm/dl (3.1-4.5); ALKALINE PHOSPHATASE 125 U/L (45-117); BUN 21 mg/dl (7-24); CHLORIDE 98 mmol/L (98-107); CPK 346 U/L (39-308); CREATININE 1.16 mg/dL (0.70-1.30); POTASSIUM 3.9 mmol/L (3.5-5.1); SGOT/AST 22 IU/L (3-35); SGPT/ALT 24 U/L (12-78); SODIUM 134 mmol/L (136-145); TOTAL PROTEIN 7.5 gm/dL (6.4-8.2)
[2021-04-29 09:57] LABS: ABG BASE EXCESS 3.3 mmol/L (-2.0-2.0); ARTERIAL BLOOD GAS PH 7.434 (7.35-7.45); ARTERIAL BLOOD GAS PO2 88.8 (80-90)
[2021-04-29 11:27] LABS: BILIRUBIN Negative (Negative); BLOOD Negative (Negative); CLARITY Clear (Clear); COLOR Yellow (Yellow); GLUCOSE Negative (Negative); KETONE Negative (Negative); LEUKO ESTERASE Negative (Negative); NITRITE Negative (Negative); UROBILINOGEN 0.2 E.U./dl (0.0-1.0)
[2021-04-29 11:58] LABS: BACTERIA 1+; EPITHELIAL CELLS 0-2
[2021-04-29 11:59] LABS: RBC 0-2 rbc/hpf (0-2)
[2021-04-29] MEDS ORDERED: COREG3.125 MG PO (13:05)
[2021-04-29] MEDS ORDERED: BUMETANIDE1 MG PO (13:05)
[2021-04-29] MEDS ORDERED: MS CONTIN15 MG PO (13:06)
[2021-04-29] MEDS ORDERED: MEXILETINE HCL150 MG PO (13:07)
[2021-04-29] MEDS ORDERED: VISTARIL50 MG PO (13:08)
== END 2021-04-29 15:38 ==
LOC: ED 08:49
PROVIDERS: Emergency Medicine
DX: J18.9 Pneumonia, unspecified organism (principal); Z20.822 Contact with and (suspected) exposure to COVID-19; R41.82 Altered mental status, unspecified; I25.5 Ischemic cardiomyopathy; Z79.899 Other long term (current) drug therapy; Y95 Nosocomial condition